=== PATIENT | female | born 1940 | race Caucasian/White ===

== ENCOUNTER 2019-07-20 22:56 | Emergency (ER) | payer MEDICARE, OTHER ==
[~2019-07-20] VITALS: Ht 160 cm; Wt 65.8 kg
[~2019-07-20 22:56] MED LIST: CLONAZEPAM1 MG PO; METHYCLOTHIAZIDE5 MG PO; POTASSIUM CHLO20 ME1 PO; ROPINIROLE HCL1 MG PO; SIMVASTATIN40 MG PO; SPIRONOLACTONE25 MG PO; TRANSDERM-SCOP1 EA TD
[2019-07-20] MEDS ORDERED: HYDROCHLOROTH12.5 MG PO (23:11)
--- NOTE | 2019-07-21 12:40 | EKG ---
[facility] [address] [place] [address] Signed Sinus tachycardia Possible Left atrial enlargement Borderline ECG No previous ECGs available Confirmed by JACQUELINE EGAN MD ([id number]) on 07/21/2019 12:39:46 PM Electronically Signed By: JACQUELINE EGAN MD 07/21/19 1240 PATIENT NAME: ALAN BRICEÑO ANN Electrocardiogram DATE OF : 42 PHYSICIAN: JACQUELINE EGAN MD REPORT #: [id number] REPORT IS CONFIDENTIAL AND NOT TO BE RELEASED WITHOUT AUTHORIZATION
== END 2019-07-21 01:02 | disposition home or self-care (01) ==
LOC: ED 22:56
DX: I10 Essential (primary) hypertension (principal); Z85.3 Personal history of malignant neoplasm of breast; Z87.891 Personal history of nicotine dependence; Z79.899 Other long term (current) drug therapy
CPT/HCPCS: 71045; 80053; 81001; 83735; 84484; 85025; 93005; 93010; 99284-25

== ENCOUNTER 2020-12-25 20:19 | Inpatient (IN) | payer MEDICARE, OTHER ==
[~2020-12-25] VITALS: Ht 160 cm; Wt 69.3 kg
[~2020-12-25 20:19] MED LIST changes: +HYDROCHLOROTH12.5 MG PO
--- OUTSIDE RECORDS SUMMARY | 2020-12-25 20:22 | XMS ---
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 [facility] has no Care Guidelines for this patient. Rhea VISIT COUNT (12 MO.) 1 TONY Faustin TOTAL 1 NOTE: Visits indicate total known visits. ED/C VISIT TRACKING (12 MO.) 12/25/2020 20:20 TONY Aguilar OR TYPE: Emergency COMPLAINT: - ABDOMINAL PAIN INPATIENT VISIT TRACKING (12 MO.) No inpatient visits to display in this time frame [email or web address]
--- NOTE | 2020-12-26 01:24 | NUR ---
TELEPHONE REPORT RECEIVED FROM ED RN STACEY, QUESTIONS ANSWERED. AWAITING pt'S ARRIVAL.
--- NOTE | 2020-12-26 01:47 | NUR ---
pt ARRIVED TO THE FLOOR VIA ED STRETCHER, AIRPLANE PILOT HELPER MANDY IN ROOM AND ASSISTING WITH pt TRANSFER.
--- NOTE | 2020-12-26 02:36 | NUR ---
ASSESSMENT COMPLETE, SCHEDULED MEDS GIVEN ALONG WITH PRN TYLENOL (SEE EMAR) FOR 4/10 PAIN R/T HEADACHE. IV FLUIDS AND ABX STARTED PER MD ORDERS, SITE WNL. pt REPORTS SOME PAIN, STATES, "SHE HAD TO WORK A LITTLE TO GET IT". SITE FLUSHES EASILY AND NO SIGNS OF INFILTRATION OR LEAKING NOTED, WILL MONITOR, ELEVATED WITH PILLOWS. REHABILITATION NURSE YAMILEX HELPING pt TO BATHROOM TO VOID. NO FURTHER NEEDS VERBALIZED.
--- NOTE | 2020-12-26 02:45 | NUR ---
IN TO ASST PT TO THE TOILET, SBA WITH IV POLE, PROVIDED PT WITH WARM BLANKETS, NO FURTHER NEEDS AT THIS TIME
--- NOTE | 2020-12-26 05:34 | NUR ---
pt RESTING IN BED, AWOKE TO VOICE. UP SBA WITH ACCOUNTING/FINANCE TUTOR YAMILEX TO VOID. VSS, IV FLUIDS AND ABX INFUSING PER MD ORDERS, SITE WNL. pt DENIES PAIN AT IV SITE, WILL MONITOR.
[2020-12-26] MEDS ORDERED: PRAMIPEXOLE DI0.5 MG PO (06:12)
--- NOTE | 2020-12-26 08:07 | NUR ---
CLEAR LIQUID TRAY IN TO PATIENT, PATIENT DENIES OTHER NEEDS AT THIS TIME.
--- NOTE | 2020-12-26 09:00 | NUR ---
Pt up to bathroom to void. SBA. Voided 200 mls concentrated yellow urine. C/O 4/10 abdominal pain and "minor" headache. PO tylenol given. Pt back to bed. PT requesting medication change, states she does not take requip for her restless leg syndrome at home, instead she take Mirapex. This RN let Dr. Downey know of pt's request for med change. IV potassium/LR infusing into RFA IV. No other needs at this time. Call light in reach.
--- NOTE | 2020-12-26 09:14 | NUR ---
PATIENT UP TO BR WITH RN. SON IN ROOM. VITALS AND I&OS CHARTED
--- NOTE | 2020-12-26 12:00 | NUR ---
PT SITTING UP IN CHAIR EATING LUNCH. TOLERATING CLEAR LIQUIDS WELL. DENIES PAIN OR NAUSEA. NO OTHER NEEDS. CALL LIGHT IN REACH.
--- NOTE | 2020-12-26 12:26 | NUR ---
PT RESTING, SOMEWHAT ALERT AND DROWSY. PT ADMITTED SHE FEELS ALITTLE GUILTY HAVING TO COME TO [facility]. SHE FELT SHE SHOULD JUST BE ABLE TO "TOUGH IT OUT". PT DID SAY THAT SHE HAS BEEN PRAYING ALOT AND FEELS MUCH CLOSER TO GOD. GAVE ENCOURAGEMENT, AND LEFT OK AND ZULEIKA. PT REQUESTED PRAYER. WILL FOLLOW
--- NOTE | 2020-12-26 12:40 | NUR ---
STANDBY ASSIST TO THE BATHROOM. TOLERATED WELL. VOIDED X1 AND SMALL BM. REPOSITIONED PT IN CHAIR. CALL LIGHT IN REACH. NO FURTHER NEEDS.
--- NOTE | 2020-12-26 13:46 | NUR ---
PTS RN REQUESTS THAT THIS RN ASSIST WITH MEDICATIN ADMINISTRATION. THIS RN TO ROOM. PT RESTING IN BED WATCHING TV. PT DENIES PAIN AND NAUSEA. MEDICATION GIVEN. PT DENIES ADDITIONAL REQUESTS OR COMPLAINTS. CALL LIGHT WIHTIN REACH. BED RAILS UP.
--- NOTE | 2020-12-26 14:24 | NUR ---
SBA WITH PATIENT TO BATHROOM. VITALS AND I&OS CHARTED. CALL LIGHT IN REACH, WARM PLANKET AND FRESH WATER PROVIDED. NO OTHER NEEDS AT THIS TIME
[2020-12-26] MEDS ORDERED: ULTRAM50 MG PO (14:32)
--- NOTE | 2020-12-26 16:24 | NUR ---
Pt lives with spouse in 1 story home. Son and daughter in law both work in the medical field. She states she is well cared for. Does not use any DME. Denies any financial issues. 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 Plans on dc to home when cleared medically. Denies any needs and plans on DC to home with help from family.
--- NOTE | 2020-12-26 16:31 | NUR ---
MED REC COMPLETE
--- NOTE | 2020-12-26 17:00 | NUR ---
PT HAS BEEN UP AD RHIANNA THROUGHOUT AFTERNOON AND UP IN CHAIR WELL. RESTING NOW IN BED, NEW BAG OF IV LR W/ 20 K AND ZOSYN INFUSING CONCURRENTLY INTO RIGHT WRIST IV. TOLERATING CLEAR LIQUID DIET WELL. GIVEN IV DILAUDID FOR ABD PAIN AND IV ZOFRAN FOR NAUSEA. PT NOW DENIES ANY PAIN OR NAUSEA. CALL LIGHT IN REACH.
--- NOTE | 2020-12-26 18:00 | NUR ---
PT REPOSITIONED TO LEFT SIDE W/ PILLOW UNDER COCCYX FOR COMFORT.
--- NOTE | 2020-12-26 18:08 | NUR ---
PATIENT AWAKE IN BED. VITALS AND I&OS CHARTED. CALL LIGHT IN REACH, NO OTHER NEEDS AT THIS TIME
--- NOTE | 2020-12-26 19:05 | NUR ---
SHIFT REPORT RECEIVED FROM DAYSHIFT VON ADAMS AT BEDSIDE. pt AWAKE AND RESTING IN BED. IV FLUIDS AND ABX INFUSING PER MD ORDERS, SITE WNL. NO NEEDS VERBALIZED, CALL LIGHT IN REACH AND BOARD UPDATED.
--- NOTE | 2020-12-26 21:53 | NUR ---
PM VITALS DONE, FRESH ICE WATER GIVEN, NO FURTHER NEEDS AT THIS TIME
--- NOTE | 2020-12-26 22:00 | NUR ---
ASSESSMENT COMPLETE, SCHEDULED MEDS RECENTLY GIVEN BY ROLLER TURNER MANDY (SEE EMAR). pt A/OX4, REPORTS TOLERABLE PAIN 4/10 TO BACK AND ABD. WISHES TO WAIT UNTIL 2300 SO SHE CAN HAVE BOTH PAIN AND NAUSEA MEDICATION. IV SITE WNL, FLUSHES EASILY. IV FLUIDS INFUSING PER MD ORDERS. pt REPORTS DISCOMFORT R/T BOWEL STIMULATOR TO RIGHT LOWER BACK, SITE ASSESSED. NO SIGNS OF SKIN BREAKDOWN OR DEFORMITY NOTED, pt ASSISTED WITH REPOSITIONING, PILLOW IN PLACE FOR COMFORT. NO FURTHER NEEDS, CALL LIGHT IN REACH.
--- NOTE | 2020-12-27 02:13 | NUR ---
2AM VITALS DONE, PT UP TO VOID, NO FURTHER NEEDS, RN MADE AWARE OF LOWER BP
--- NOTE | 2020-12-27 02:30 | NUR ---
ASSESSMENT COMPLETE, VSS. pt AWAKENS TO VOICE. A/OX4, DENIES PAIN AND NAUSEA AT THIS TIME. BT ACTIVE. NEW BAG IV FLUIDS HUNG ALONG WITH SCHEDULED IV ABX (SEE EMAR). pt DENIES FURTHER NEEDS, CALL LIGHT IN REACH.
--- NOTE | 2020-12-27 04:43 | NUR ---
CALL LIGHT ON. pt UP TO VOID, SBA. BACK TO BED. PROVIDED A WARM BLANKET. NO FURTHER REQUESTS AT THIS TIME. CALL LIGHT WITHIN REACH.
--- NOTE | 2020-12-27 05:30 | NUR ---
pt RESTING IN BED WITH EYES CLOSED, RR EVEN AND UNLABORED. NO DISTRESS NOTED, CALL LIGHT IN REACH.
--- NOTE | 2020-12-27 06:22 | NUR ---
VS AND I&O'S COMPLETE, pt UP SBA TO BATHROOM TO VOID X1 AND HAVE SMALL BM. pt BACK TO BED, SOMEWHAT UNSTEADY ON FEET. CALLS APPROPRIATELY. NO FURTHER NEEDS, CALL LIGHT IN REACH. LAB IN ROOM.
--- NOTE | 2020-12-27 08:30 | NUR ---
SBA UP TO RECLINER, IN GOOD SPIRITS THIS AM, REPORTS NORMAL BM THIS AM. DENIES NAUSEA, STATES SHE IS HUNGRY, DR CUTLER IN TO SEE PT AND WILL ADVANCE DIET. SCHEDULED MEDS GIVEN. LOOKING AT MENU.
--- NOTE | 2020-12-27 10:20 | NUR ---
ATE 50% OF [place]KIST[place] TOAST, DENIES NAUSEA, LAYING BACK ON BED FOR NAP, ASKED FOR DILAUDID FOR GENERAL DISCOMFORT IT HELPS HER REST BETTER. SCHEDULED HERMINION STARTED. CALL LIGHT IN EASY REACH.
--- NOTE | 2020-12-27 14:36 | NUR ---
PATIENT AMBULATE 2 LAPS AROUND THE NURSES STATION WITH CAMP DIRECTOR AT SIDE. FRESH WATER GIVEN. VITALS AND I&OS ARE DONE AND DOCUMENTED. CALL LIGHT IS IN REACH. NO FURTHER NEEDS AT THIS TIME.
--- NOTE | 2020-12-27 17:00 | NUR ---
MEDICATED WITH OXYCODONE FOR C/O BACK AND ABD PAIN AFTER GETTING UP TO VOID, RESTING ON BED TALKING WITH DAUGHTER.
--- NOTE | 2020-12-27 17:30 | NUR ---
MEDICATED WITH SECOND OXYCODONE PT STATES ONE TABLET HAS NOT RELIEVED PAIN MUCH.
--- NOTE | 2020-12-27 17:45 | NUR ---
PATIENT RESTING IN BED, DAUGHTER IN ROOM. VITALS AND I&OS CHARTED. HOT PACK PROVIDED FOR NECK. CALL LIGHT IN REACH, NO OTHER NEEDS AT THIS TIME
--- NOTE | 2020-12-27 19:10 | NUR ---
SHIFT REPORT RECEIVED FROM DAYSHIFT VON SIMMONS AT BEDSIDE, pt AWAKE AND RESTING IN BED. IV ABX AND FLUIDS INFUSING PER MD ORDERS, SITE WNL. NO ADDITIONAL NEEDS VERBALIZED AT THIS TIME, CALL LIGHT IN REACH.
--- NOTE | 2020-12-27 20:32 | NUR ---
VS AND I &O COMPLETED. PRIMARY RN USHA IN ROOM.
--- NOTE | 2020-12-27 20:54 | NUR ---
ASSESSMENT COMPLETE, SCHEDULED MEDS GIVEN (SEE EMAR). pt A/OX4, VSS. pt REPORTS TOLERABLE 2-3/10 UPPER ABD PAIN. DECLINES NEED FOR PAIN MEDICATION, INSTRUCTED TO CALL MANAGER SHELL IF PAIN WORSENS. pt VERBALIZED UNDERSTANDING. DENIES NAUSEA, TOLERATING DIET. BOWEL TONES ACTIVE. NO FURTHER NEEDS, CALL LIGHT IN REACH.
--- NOTE | 2020-12-27 21:36 | NUR ---
PT CALLS TO USE BR. SBA TO BR AND BACK TO BED. PUDDING AND CRACKERS PROVIDED. NO OTHER NEEDS AT THIS TIME. CALL LIGHT IN REACH.
--- NOTE | 2020-12-27 22:23 | NUR ---
pt ROUNDING, pt RESTING IN BED WITH EYES CLOSED. RR EVEN AND UNLABORED. NO DISTRESS NOTED. CALL LIGHT IN REACH.
--- NOTE | 2020-12-27 23:31 | NUR ---
CALL LIGHT ANSWERED, pt UP SBA TO BATHROOM TO VOID AND BACK TO BED. pt TOLERATED WELL, STEADY ON FEET. USED IV POLE FOR ADDITIONAL BALANCE. WHEN ASKED ABOUT PAIN, pt STATES SHE FEELS "FINE". DENIES NEED FOR PAIN MEDICATION. CALL LIGHT IN REACH.
--- NOTE | 2020-12-28 00:42 | NUR ---
PT UP TO BR, SBA, BACK TO BED. PT SYSYES SHE HAS 6/10 BOYCE PAIN. PRIMARY RN USHA NOTIFIED.
--- NOTE | 2020-12-28 01:05 | NUR ---
pt REPORTING 5/10 DULL PAIN R/T HEADACHE. PRN TYLENOL GIVEN (SEE EMAR). pt DECLINES WARM/COOL RAG, TURNING OFF TV, STATES "IT HELPS ME SLEEP". DECLINES ADDITIONAL NEEDS, CALL LIGHT IN REACH.
--- NOTE | 2020-12-28 02:00 | NUR ---
IN ROOM TO ADMINISTER SCHEDULED IV ABX, SITE WNL. pt RESTING IN BED WITH EYES CLOSED. CALL LIGHT IN REACH.
--- NOTE | 2020-12-28 02:30 | NUR ---
IN TO ANSWER CALL LIGHT, pt UP SBA TO BATHROOM TO VOID. STEADY ON FEET WITH USE OF IV POLE. 75MLS OUT, pt BACK IN BED. ASSESSMENT COMPLETE. NO NEW CHANGES OR CONCERNS. CALL LIGHT IN REACH.
--- NOTE | 2020-12-28 04:44 | NUR ---
ROUNDING ON pt, pt RESTING IN CHAIR, EYES CLOSED. RR EVEN AND UNLABORED. IV FLUIDS AND IV ABX INFUSING PER MD ORDERS. CALL LIGHT IN REACH.
--- NOTE | 2020-12-28 05:20 | NUR ---
VS AND I&O COMPLETED. SNACK PROVIDED. NO OTHER NEEDS AT THIS TIME.
--- NOTE | 2020-12-28 05:21 | NUR ---
VS AND I&O'S COMPLETE, IV FLUIDS AND ABX INFUSING PER MD ORDERS, SITE WNL. SNACK PROVIDED, NO FURTHER NEEDS. CALL LIGHT IN REACH.
--- NOTE | 2020-12-28 05:43 | NUR ---
PT UP TO BR AND BACK TO BED, SBA. NO OTHER NEEDS AT THIS TIME. CALL LIGHT IN REACH.
--- NOTE | 2020-12-28 06:47 | NUR ---
PT UP TO BR AND BACK TO BED. NO OTHER NEEDS AT THIS TIME. CALL LIGHT IN REACH.
--- NOTE | 2020-12-28 07:20 | NUR ---
CALL PLACE TO DR EGAN, PT IS UP TO BATHROOM C/O INCREASED ABD CRAMPING AND DIARRHEA THIS AM. STATES SHE HAS BEEN UNABLE TO REST AND IS QUITE ANXIOUS THIS AM. RECIEVED ORDERS TO RETURN TO CLEAR LIQUIDS, MORPHINE FOR PAIN, AND TRAMADOL, SHE TAKES THIS AT HOME.
--- NOTE | 2020-12-28 08:02 | NUR ---
PT REPORTS CRAMPING HAS STOPPED AFTER RECIEVING MORPHINE, RESTING ON BED AND DENIES FURTHER NEEDS, STATES SHE JUST WANTS TO REST A BIT. CALL LIGHT IN EASY REACH.
--- NOTE | 2020-12-28 09:38 | NUR ---
PATIENT IS SITTING UP IN HER CHAIR. AM CARE IS DONE. VITALS AND I&OS ARE DONE AND DOCUMENTED. FRESH WATER GIVEN. CALL LIGHT IS IN REACH. NO FURTHER NEEDS AT THIS TIME.
--- NOTE | 2020-12-28 10:33 | NUR ---
DR EGAN IN TO SEE PT. DISCUSSES DX AND PLAN GOING FORWARD ALL QUESTIONS ANSWERED.
--- NOTE | 2020-12-28 13:43 | NUR ---
PATIENT SBA TO BATHROOM. PT WATCHING TV WITH IN ROOM. CALL LIGHT WITHIN REACH, NO FURTHER NEEDS AT THIS TIME.
--- NOTE | 2020-12-28 14:56 | NUR ---
PT RESTING IN BED, REFUSES UP TO THE CHAIR STATING SHE IS MORE COMFORTABLE IN BED. TOLERATING CLEAR LIQUIDS NO C/O NAUSEA, AGREES SHE IS COMFORTABLE AT THIS TIME
--- NOTE | 2020-12-28 17:34 | NUR ---
PT STATES SHE FEELS WORSE OVERALL THAN BETTER. SHE HAS COMPLETED HER CLEAR LIQUID TRAY NO C/O NAUSEA OR PAIN. UP TO TOILET STEADY ON HER FEET. DENIES FURTHER NEEDS AT THIS TIME
--- NOTE | 2020-12-28 18:15 | NUR ---
PATIENT IS SITTING UP IN BED WATCHING TV. PATIENT IS FACETIMING FAMILY. VITALS AND I&OS ARE DONE AND DOCUMENTED. CALL LIGHT IS IN REACH. NO FURTHER NEEDS AT THIS TIME.
--- NOTE | 2020-12-28 19:10 | NUR ---
SHIFT REPORT RECEIVED FROM JOSEPH BAE AT BEDSIDE. pt AWAKE ANDRESTING IN BED, DENIES NEEDS. IV FLUIDS INFUSING, SITE WNL. CALL LIGHT IN REACH. BOARD UPDATED.
--- NOTE | 2020-12-28 20:15 | NUR ---
CALL LIGHT ON. pt UP TO VOID, CARLOS, REQUIRED 1PA. SMALL BM NOTED. pt BACK TO BED, MORE STEADY ON FEET. pt STATED "I'M SURE I HAVE A FEVER, I'M SO COLD." TEMP TAKEN 99.0. PROVIDED WARM BLANKETS. FUR DRY CLEANER IN ROOM.
--- NOTE | 2020-12-28 20:24 | NUR ---
CALL FROM SON, SERJIO. REPORTED THAT pt SMOKES AND DRINKS CAFFEINE. UPDATED ON pt CONDITION. SERJIO CONCERNED THAT pt MAY BE EXPERIENCING WITHDRAWAL FROM NICOTINE OR CAFFEINE. PRIMARY RN UPDATED.
--- NOTE | 2020-12-28 20:59 | NUR ---
ASSESSMENT COMPLETE, pt RECENTLY UP TO VOID WITH BOAT CLEANER MANDY. pt REPORTS FEELING COLD, TEMP 99.0, WARM BLANKETS ALREADY IN PLACE. EDUCATED pt ON DEEP BREATHING AND USE OF IS, pt VERBALIZED UNDERSTANDING. pt DROWSY, STARTLES EASILY AND FALLS ASLEEP QUICKLY. AWAKENS TO VOICE, VSS. pt APPEARS SOMEWHAT RESTLESS, DISCUSSED POSSIBLE SOURCES OF ANXIETY. ASKED ABOUT HX REGARDING SMOKING OR CAFFEINE USE. pt DENIED SMOKING, REPORTS DRINKING A CUP OF COFFEE IN THE MORNING. REPORTS GENERALIZED 5/10 PAIN, PO PRN MORPHINE GIVEN (SEE EMAR). PRN ZOFRAN ALSO GIVEN PER pt REQUEST, pt ADAMANT SHE IS ABLE TO KEEP PO PILLS DOWN. pt UP SBA TO VOID, 250MLS STRAW COLORED URINE NOTED. pt BACK IN BED. NO FURTHER NEEDS, CALL LIGHT IN REACH.
--- NOTE | 2020-12-28 22:34 | NUR ---
ROUNDING ON pt, pt RESTING IN BED, EYES CLOSED. RR EVEN AND UNLABORED, NO DISTRESS OR SIGNS OF PAIN/ANXIETY NOTED. pt APPEARS RELAXED AT THIS TIME, CALL LIGHT IN REACH.
--- NOTE | 2020-12-28 23:37 | NUR ---
pt RESTING IN BED WITH EYES CLOSED, RR EVEN AND UNLABORED, RR 20. NO DISTRESS NOTED, pt APPEARS RELAXED AND COMFORTABLE. CALL LIGHT IN REACH.
--- NOTE | 2020-12-29 00:53 | NUR ---
ROUNDING ON pt, pt FOUND SITTING AT EDGE OF BED AWAKE. ASSISTED TO BATHROOM, INCONTINENT OF SMALL SOFT BM, JOHNATHON CARE DONE. NEW ATTENDS IN PLACE. UNMEASURED VOID X1 ALSO NOTED. pt BACK TO BED, STEADY ON FEET. SPOT CHECKED, SUSTAINING UPPER 80'S ON RA, PLACED ON 1.5LNC, NOW SUSTAINING AT 94%. WILL CONTINUE TO MONITOR. IV FLUIDS INFUSING PER MD ORDERS, IV SITE WNL. NO FURTHER NEEDS, CALL LIGHT IN REACH. BED ALARM ON TO ENSURE SAFETY.
--- NOTE | 2020-12-29 03:15 | NUR ---
BED ALARMING. pt GETTING UP WHEN THIS RN ENTERED ROOM. 1PA TO TOILET. pt INCONT OF STOOL. DEPENDS CHANGED. PRIMARY RN TO ROOM.
--- NOTE | 2020-12-29 03:30 | NUR ---
ASSISTED pt BACK TO BED, SBA/1PA, STEADY ON FEET. WHEN ASKED FOR MONTH, pt REPORTED IT WAS . REMAINING ORIENTATION QUESTIONS CORRECT. pt EDUCATED TO USE CALL LIGHT BEFORE BETTING OOB, pt VERBALIZED UNDERSTANDING. REMAINING ASSESSMENT UNCHANGED, pt DENIES PAIN AND NAUSEA. NO FURTHER NEEDS, CALL LIGHT IN REACH. 1.5LNC REMAINS IN PLACE, O2 SATS SUSTAINING IN LOW TO MID 90'S. IV SITE WNL. WHEN ASKED AGAIN ORIENTATION, pt REPORTED CORRECT MONTH AND STATED THE DAY WAS "TUESDAY/TUESDAY".
--- NOTE | 2020-12-29 05:53 | NUR ---
ASSISTED pt BACK FROM BATHROOM TO BED, STEADY ON FEET. CLEAN ATTENDS IN PLACE. VS AND I&O'S STABLE. IV SITE WNL, FLUIDS INFUSING PER MD ORDERS. BED ALARM ON FOR SAFETY. NO FURTHER NEEDS, CALL LIGHT IN REACH.
--- NOTE | 2020-12-29 08:50 | NUR ---
Spoke with Christina Ramos. States she is feeling better, but has continues pain and had a rough night last night. Complains of headache as she does not like the hospital coffee. She complains tea is cold when it arrives. Made her a hot cup of tea with 2 tea bags and she used her own honey. Wants to go home with spouse when cleared medically. Discussed she is back on clear liquids.
--- NOTE | 2020-12-29 09:30 | NUR ---
REPORT RECEIVED FROM NIGHT RN AND PT. CARE RESUMED. PT. ALERT AND ORIENTED AND DENIES PAIN. PT. STATED SHE HAD A ROUGH NIGHT AND WAS CONFUSED AT ONE POINT. SHE ALSO STATED SHE THOUGHT IT WAS DUE TO THE MORPHINE AND SHE HAS NEVER HAD IT BEFORE. LUNGS CLEAR AND BOWEL TONES ACTIVE. PT. DENIES ABDOMINAL TENDERNESS. SKIN INTACT. PT. REPORTS IV SITE IS BOTHERING HER DUE TO LOCATION BUT NOT PAINFUL. IV SITE FLUSHES WELL AND WNL. PT. ATE A FEW BITES OF JELLO, BUT STATES SHE DOES NOT CARE FOR THE FOOD AND HER DAUGHTER WILL BRING CHICKEN BROTH FROM HOME. MORNING MEDS GIVEN AND PT. LEFT RESTING IN BED WITH CALL LIGHT IN REACH.
--- NOTE | 2020-12-29 10:50 | NUR ---
PT. REPORTS 7/10 PAIN FROM HEADACHE AND REQUESTS TYLENOL. PO TYLENOL ADMIN. PT. DENIES FURTHER NEED AND PRISM MEASURER IN THE ROOM TO VISIT.
--- NOTE | 2020-12-29 14:29 | NUR ---
PT SLEEPING, SON SERJIO REQUESTED I COME ANOTHER TIME. WILL FOLLOW
--- NOTE | 2020-12-29 15:45 | NUR ---
PATIENT TOOK A SHOWER TODAY. SHE DIDN'T WANT TO WASH HER HAIR. NEW GOWN AND SOCKS. PATIENT IS SLEEPING.
--- NOTE | 2020-12-29 19:50 | NUR ---
REPORT RECEIVED FROM DAYSCTFT RN. PT LAYING IN BED AWAKE AND ALERT AND HAS NO COMPLAINTS OF PAIN. PT REPORTS NO FURTHER NEEDS AT THIS TIME ASIDE FROM ICE WHICH WAS PROVIDED. WILL CONTINUE PLAN OF CARE. CALL LIGHT IN REACH, BED IN LOWEST POSITION.
--- NOTE | 2020-12-29 20:37 | NUR ---
THIS RN IN TO ASSESS PT AND ADMINISTER SCHEDULED MEDICATIONS. PT AWAKE AND ALERT LAYING IN BED AND WATCHING TV. PT REPORTS NO PAIN AT THIS TIME WHEN ASKED. SCHEDULED MEDICATIONS ADMINISTERED, ASSESSMENT COMPLETE. BOWEL TONES ACTIVE, ABDOMEN SOFT, VS STABLE, PT AFEBRILE. PT REPORTS NO FURTHER NEEDS AT THIS TIME WHEN ASKED, WILL CONTINUE PLAN OF CARE. CALL LIGHT IN REACH, BED IN LOWEST POSITION.
--- NOTE | 2020-12-29 21:43 | NUR ---
CALL LIGHT ANSWERED. pt REQUESTING MIRAPEX, STATES "I USUALLY TAKE THE THIRD PILL, I ONLY GOT TWO. MY LEGS ARE GETTING A DULL ACHE AND I DON'T WANT THE MORPHINE". MIRAPEX TITRATED TO MAX DOSE, VERIFIED WITH PUDDLER PILE DRIVING. CALL LIGHT IN REACH. WARM BLANKETS PROVIDED.
--- NOTE | 2020-12-30 01:20 | NUR ---
PT SLEEPING AT THIS TIME. RESPIRATIONS NOTED AND ARE EVEN AND UNLABORED . PT IN NO APPARENT DISTRESS AT THIS TIME AND WAS LEFT UNDISTURBED, WILL CONTINUE PLAN OF CARE.
--- NOTE | 2020-12-30 04:28 | NUR ---
RESPONDED TO PT CALL LIGHT. PT AWAKE AND ALERT AND STATES THAT SHE IS HAVING NAUSEA AND REQUESTED MEDICATION. PT GOT UP DURING THIS TIME FROM HER BED AND SAT IN THE BEDSIDE CHAIR. PRN ZOFRAN ADMINISTERED TO PT. PT ALSO STATED SHE WAS HAVING A HEADACHE AND A NECK ACHE, PRN TYLENOL ADMINISTERED FOR 5/10 PAIN. ASSESSMENT COMPLETE AT THIS TIME. PT BOWEL TONES ACTIVE, PT STATES SHE HAS NOT HAD ANY BM'S OVERNIGHT. VS DONE AT THIS TIME WELL. PT REPORTS NO FURTHER NEEDS AT THIS TIME AND IS SITTING AT THE BEDSIDE CHAIR WATCHING TV. PT STATES SHE WILL TRY TO GO BACK TO SLEEP IN THE CHAIR. CALL LIGHT IN REACH, WILL CONTINUE PLAN OF CARE.
--- NOTE | 2020-12-30 04:54 | NUR ---
PT SLEPT THROUGH MOST OF THE NIGHT. PRN TYLENOL AND ZOFRAN GIVEN AROUND 0400 FOR NAUSEA, HEADACHE, AND NECK PAIN. PT HAS BEEN VOIDING QS AND HAS NOT HAD A BM OVERNIGHT. BOWEL TONES ACTIVE NO REPORTS OF ABDOMINAL PAIN, NO PRN MORPHINE NEEDED OVERNIGHT. PT IS ALERT AND ORIENTED, SALINE LOCKED, AND USES CALL LIGHT APPROPRIATELY.
--- NOTE | 2020-12-30 06:33 | NUR ---
THIS RN IN TO CHECK ON PT. PT LAYING IN BED WATCHING TV AWAKE AND ALERT. PT DENIES HAVING ANY PAIN AT THIS TIME AND REPORTS NO NAUSEA. PT REPORTS NO FURTHER NEEDS AT THIS TIME ASIDE FROM A SNACK WHICH WAS PROVIDED. CALL LIGHT IN REACH, BED IN LOWEST POSITION, WILL CONTINUE PLAN OF CARE.
--- NOTE | 2020-12-30 07:10 | NUR ---
SHIFT REPORT RECEIVED. PATIENT RESTING IN BED. DENIES ANY NEEDS OR CONCERNS. APPEARS TO BE IN GOOD SPIRITS.
--- NOTE | 2020-12-30 08:00 | NUR ---
PATIENT UP IN THE CHIAR DOING HER MAKE UP. PATIENT DENIES PAIN AND REPORTS NAUSEA FROM EARLIER IS RESOLVED. MORNING MEDS PROVIDED BY [facility] STUDENT STACEY. EDUCATION AND SIDE EFFECTS DISCUSSED. PATIENT'S IV SITE IS PAINFUL AND DOES NOT FLUSH WELL. SITE RED. IV REMOVED BY STUDENT AND MONITORED BY THIS RN. NORBERTO WNL. PATIENT HAD BREAKFAST WITH FULL LIQUID DIET AND IS REQUESTING ADVANCE IN DIET. ASSURED HER WE WOULD DISCUSS IT WITH MD. PATIENT DENIES OTHER NEEDS. CALL LIGHT IN REACH. PATIENT ALSO REPORTS A LOOSE STOOL. STOOL OBSERVED AT [facility] AND LIQUID.
--- NOTE | 2020-12-30 09:00 | NUR ---
PATIENT UP WALKING IN THE HALLWAY. APPEARS STEADY. DENIES ANY NEEDS.
--- NOTE | 2020-12-30 09:38 | NUR ---
PATIENT IS SITTING UP IN HER CHAIR. FRESH WATER GIVEN. CALL LIGHT IS IN REACH. NO FURTHER NEEDS AT THIS TIME.
--- NOTE | 2020-12-30 10:00 | NUR ---
PATIENT RESTING IN BED. DENIES ANY NEEDS.
[2020-12-30] MEDS ORDERED: VANCOMYCIN HCL125 MG PO (11:38)
[2020-12-30] MEDS ORDERED: AMOX TR-K CLV1 EAC1 PO (11:38)
[2020-12-30] MEDS ORDERED: PROBIOTIC1 EAC3 PO (11:42)
--- NOTE | 2020-12-30 12:24 | NUR ---
PATIENT VERBALIZED UNDERSTANDING OF DC INSTRUCTIONS. PATIENT GETTING DRESSED INDEPENDENTLY. VS STABLE. IV SITE PREVIOUSLY REMOVED THIS MORNING. PATIENT DENIES ANY FURTHER NEEDS. DAUGHTER IS ON HER WAY TO PROVIDED A RIDE HOME.
--- NOTE | 2020-12-30 13:45 | NUR ---
Spoke with Christina Ramos. She is dressing and spouse is packing belongings out. Pt plans on dc to home with spouse, denies needs. She had requested I change her Dr. but explained she has pcp and will need to first follow up with pcp. If she wishes to change Dr. after, she will need to call the office. She states she is uncomfortable doing so. Explained if she was without a pcp, I could schedule her, but she needs to do this on her own.
--- NOTE | 2020-12-30 14:02 | NUR ---
PT ALERT, ORIENTED AND VISITING WITH HER SPOUSE FELIPE AT . HAD DISCUSSION WITH PT ABOUT THE NEED FOR A PCP. MENTIONED SHE HAS HAD DIFFICULTY FINDING ONE. ENCOURAGED HER TO CHECK [facility] AND GAVE OTHER SUGGESTIONS. PT AND SPOUSE ACKNOWLEDGED. GAVE BLESSING, WILL FOLLOW NEEDED
== END 2020-12-30 12:38 | disposition home or self-care (01) | DRG 392 ==
LOC: ED 20:19 → MS 20:21 → ED 20:21 → MS 12-28 12:04
PROVIDERS: ADMIT Internal Medicine; ATTEND Internal Medicine
DX: K57.32 Diverticulitis of large intestine without perforation or abscess without bleeding (principal); Z20.822 Contact with and (suspected) exposure to COVID-19; G25.81 Restless legs syndrome; E87.6 Hypokalemia; I10 Essential (primary) hypertension; E78.5 Hyperlipidemia, unspecified; Z79.899 Other long term (current) drug therapy; Z88.5 Allergy status to narcotic agent; Z85.3 Personal history of malignant neoplasm of breast
CPT/HCPCS: 36415; 74177; 80048; 80053; 81001; 83690; 83735; 85025; 87088; 99285-25; C9113; C9803; J1170; J1650; J2270; J2405; J2543; J3480; J7120; Q9967; U0003

== ENCOUNTER 2021-02-25 16:06 | Emergency (ER) | payer MEDICARE, OTHER ==
[~2021-02-25] VITALS: Ht 157.5 cm; Wt 68.0 kg
[~2021-02-25 16:06] MED LIST changes: +AMOX TR-K CLV1 EAC1 PO; +PRAMIPEXOLE DI0.5 MG PO; +PROBIOTIC1 EAC3 PO; +ULTRAM50 MG PO; +VANCOMYCIN HCL125 MG PO
--- OUTSIDE RECORDS SUMMARY | 2021-02-25 16:08 | XMS ---
PreManage Notification: ALAN BRICEÑO [employer]ward Events No recent Security Events currently on file CRITERIA MET - [facility] There are no care providers on record at this time. [facility] has no Care Guidelines for this patient. Rhea VISIT COUNT (12 MO.) 2 TONY Faustin TOTAL 2 NOTE: Visits indicate total known visits. ED/UCC VISIT TRACKING (12 MO.) 02/25/2021 16:07 [facility] TYPE: Emergency COMPLAINT: - ABD PAIN, ABNORMAL BOWEL MOVEMENTS 12/25/2020 20:20 [facility] TYPE: Emergency COMPLAINT: - DIVERTICULITIS INPATIENT VISIT TRACKING (12 MO.) 12/28/2020 12:04 [facility] TYPE: Medical Surgical COMPLAINT: - DIVERTICULITIS DIAGNOSES: - Diverticulitis of large intestine without perforation or abscess without bleeding - Personal history of malignant neoplasm of breast - Allergy status to narcotic agent - Other roasterman (current) drug therapy - Hypokalemia - Restless legs syndrome - Hyperlipidemia, unspecified - Essential (primary) hypertension [email or web address]
[2021-02-25] MEDS ORDERED: DICYCLOMINE HCL10 MG PO (16:51)
[2021-02-25] MEDS ORDERED: POTASSIUM CHLO10 ME2 PO (16:52)
[2021-02-25] MEDS ORDERED: ONDANSETRON ODT8 MG PO (20:53)
--- NOTE | 2021-03-01 12:21 | CONS ---
[facility] [address], [place] [address] Signed DATE OF CONSULTATION: 02/25/2021 REQUESTING PHYSICIAN: Dr. Marin. PROBLEM: Left lower abdominal pain, history of diverticulitis and recurrent refractory C difficile. HISTORY: The patient has a very complex past medical history regarding her colon, rectum and elsewhere. She presents this evening with left lower abdominal pain with a known history of diverticulitis as far back as December 26, 2020. She had been treated since the end of October with Cipro and Flagyl antibiotic and developed C difficile colitis infection. The patient has a distant history of an implanted rectal electronic stimulator to assist in incontinence related to anorectal incontinence despite having had sphincteroplasty in the distant past. This was implanted in about 2007 in [place], [place] by . The patient has been seen by Dr. 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 A CT scan had been performed in the emergency room showing some colonic wall thickening which was considered possible diverticulitis. No colonic abscess or fluid collection. She was admitted by Dr. Downey and monitored at that time. In the meantime, the patient has had recurrent C difficile; she was evaluated in [place] at the [facility] where she was found not to have diarrhea and only in a tangential way ultimately tested for C difficile, which was said to be positive. It is unclear if this was C difficile toxin or antigen alone. In any case, she was treated with oral vancomycin, which seemed to help her symptoms, but then she has had symptoms which she thinks may indicate recurrent C difficile infection or possibly recurrent diverticulitis. Of note, I have seen the patient in the past in treatment for left-sided breast cancer, which was treated by lumpectomy with subsequent complication of infection or an infected seroma which was drained in January of 2012. There is question as to whether it was really a surgical wound infection and that her operation was originally on December 07, and re-excision of the biopsy site performed on January 30 with subsequent infection. In any case, that problem is resolving. There has been no recurrent problem regarding the breast. As regards to her current symptoms, she has had left lower abdominal pain, but it has not been severe. She has not had diarrhea nor has she had blood per rectum, though she has had some mucoid discharge. She is unaware if biopsies performed at [place] specifically thought lymphocytic colitis, but a biopsy was taken of the area of Electronically Signed By: KRISH BURKETT MD 03/01/21 1221 PATIENT NAME: ALAN BRICEÑO CONSULTATION DATE OF : 42 REPORT #: [id number] PHYSICIAN: KRISH BURKETT MD PCP: KELSEY MCKOY MD REPORT IS CONFIDENTIAL AND NOT TO BE RELEASED WITHOUT AUTHORIZATION [address] [address] Signed thickening in the left colon she says. Review of her notes from December did describe acute sigmoid diverticulitis with prompt improvement with antibiotic therapy. Other medical issues include essential hypertension, hyperlipidemia, and restless legs syndrome. SURGICAL HISTORY: Includes breast surgery on the left as previously noted as well as abdominoplasty. ALLERGIES: The patient has allergies to codeine. REVIEW OF SYSTEMS: She denies any shortness of breath or chest pain. She has no cough and no fever. Notably, she had COVID vaccination x2 in this institution many months ago. SOCIAL HISTORY: She is accompanied by her son this evening Jae Jaimes who is a respiratory therapist. PHYSICAL EXAMINATION: GENERAL: This is a pleasant white woman, who looks to be nontoxic in every way. VITAL SIGNS: Her temperature reported is 97.4, pulse is 57, respirations 16, blood pressure 129/74. NECK: Shows no thyromegaly or cervical adenopathy. Trachea is midline. CHEST: Clear. HEART: Regular. ABDOMEN: Nondistended. There is a circumumbilical incision consistent with abdominoplasty from the past. The abdomen is nondistended. Palpation throughout shows no sign of mass or ascites. She has only minimal tenderness to the left lower quadrant, hardly any at all. In the small of her back on the right side is an implanted device consistent with electronic stimulator for sphincter augmentation. EXTREMITIES: Lower extremities show no clubbing, cyanosis, or edema. LABORATORY STUDIES: Show a white count of 6.2, hematocrit of 38.1, platelets 227,000. Chem profile showed normal electrolytes. Creatinine is 0.65. Liver enzymes are normal. Lipase normal at 41. Urinalysis is entirely normal. Rapid COVID test was obtained and result is pending. I have reviewed the CT scan that she had today. There does appear to be some mild thickening in the region of the sigmoid, but no pericolonic fat stranding or anything to strongly suggest diverticulitis in fact. The report as noted by Dr. Ady Stewart Electronically Signed By: KRISH BURKETT MD 03/01/21 1221 PATIENT NAME: ALAN BRICEÑO CONSULTATION DATE OF : 42 REPORT #: [id number] PHYSICIAN: KRISH BURKETT MD PCP: KELSEY MCKOY MD REPORT IS CONFIDENTIAL AND NOT TO BE RELEASED WITHOUT AUTHORIZATION [facility] [address], [place] [address] Signed shows an unchanged CT scan from that obtained in December. A CT scan that had been performed at the [facility] on 01/23/2021 was not available for comparison. There were numerous diverticula of the sigmoid and descending colon. Edematous wall thickening of the sigmoid is noted and remains present as before. There is no extraluminal gas, pericolic fluid collection or abscess. Appendix was normal. ASSESSMENT: The patient presented to the emergency room with an aura of impending recurrence of either diverticulitis or C difficile colitis. She is nontoxic and certainly has no peritonitis. I think it is more likely that she has a smoldering recurrent infection with C difficile than persistent diverticulitis at this point. I think she would benefit from pulsed therapy for C difficile. She seemed to respond to antibiotic therapy as administered but recurs quite soon thereafter. Fecal transplantation is not locally available at this time, although effective in those patients with recurrent refractory C difficile colitis, pulsed antibiotic therapy approach may be more practical at this time. I think she can be followed up as an outpatient rather than admitted to the hospital. If things should worsen in the course, we would change that approach. From what I can gather, she was placed on both Augmentin and vancomycin orally, Augmentin for presumed diverticulitis and vancomycin to diminish chances of C difficile recurrence. I do not think she needs antibiotic therapy for her sigmoid diverticulitis at this time. We discussed all this in detail. I will follow up with her in the office setting. The patient inquires regarding the possibility of sigmoid resection for which she perceives as recurrent diverticulitis from the past. It is certainly an option and a consideration, however, one would hesitate to proceed with a sigmoid resection without complete control of the C difficile problem to begin with. MD JAMI Fields/MONICA /[id number] cc: MD Josef Ivy MD Electronically Signed By: KRISH BURKETT MD 03/01/21 122 PATIENT NAME: ALAN BRICEÑO CONSULTATION DATE OF : 42 REPORT #: [id number] PHYSICIAN: KRISH BURKETT MD PCP: KELSEY MCKOY MD REPORT IS CONFIDENTIAL AND NOT TO BE RELEASED WITHOUT AUTHORIZATION [facility] [address], [place] [address] Signed Teena Xiao PA-C Copies: ADY DOWNEY MD, WILLIAM S MD ~ Electronically Signed By: KRISH BURKETT MD 03/01/21 122 PATIENT NAME: ALAN BRICEÑO ANN CONSULTATION DATE OF : 42 REPORT #: [id number] PHYSICIAN: KRISH BURKETT MD PCP: KELSEY MCKOY MD REPORT IS CONFIDENTIAL AND NOT TO BE RELEASED WITHOUT AUTHORIZATION
== END 2021-02-25 21:35 | disposition home or self-care (01) ==
LOC: ED 16:06
DX: A04.72 Enterocolitis due to Clostridium difficile, not specified as recurrent (principal); Z20.822 Contact with and (suspected) exposure to COVID-19; I10 Essential (primary) hypertension; E78.00 Pure hypercholesterolemia, unspecified; Z85.3 Personal history of malignant neoplasm of breast; Z88.5 Allergy status to narcotic agent; Z79.899 Other long term (current) drug therapy
CPT/HCPCS: 74177; 80053; 81001; 83690; 85025; 96374; 96375; 99284-25; C9803; J1170; J2405; J7030; Q9967; U0003

== ENCOUNTER 2021-05-24 09:00 | Emergency (ER) | payer MEDICARE, OTHER ==
[~2021-05-24] VITALS: Ht 157.5 cm; Wt 71.2 kg
[~2021-05-24 09:00] MED LIST changes: +DICYCLOMINE HCL10 MG PO; +ONDANSETRON ODT8 MG PO; +POTASSIUM CHLO10 ME2 PO
[2021-05-24] MEDS ORDERED: AUGMENTIN 875-1 EACH PO (12:46)
== END 2021-05-24 12:55 | disposition home or self-care (01) ==
LOC: ED 09:00
DX: K57.32 Diverticulitis of large intestine without perforation or abscess without bleeding (principal); Z85.3 Personal history of malignant neoplasm of breast; I10 Essential (primary) hypertension; E78.00 Pure hypercholesterolemia, unspecified; Z88.5 Allergy status to narcotic agent; Z79.899 Other long term (current) drug therapy
CPT/HCPCS: 74177; 80053; 85025; 99284-25; J1170; Q9967

== ENCOUNTER 2023-05-04 13:25 | Inpatient (IN) | payer MEDICARE, OTHER ==
[~2023-05-04] VITALS: Ht 157.5 cm; Wt 69.5 kg
--- OUTSIDE RECORDS SUMMARY | ~2023-05-04 | XMS | Continuity of Care Document ---
Demographics + + + | Address | [address] | | | [place] [address] | + + + | Preferred Language | Unknown | + + + | Marital Status | | + + + | Protestant Affiliation | Unknown | + + + | Race | White | + + + | Ethnic Group | Not or | + + + Author + + + | Author | [facility] | + + + | Organization | [facility] | + + + | Address | [address] | | | [place] [address] | + + + | Phone | | + + + Care Team Providers + + + + | Care Ship Wirer Name | Role | Phone | + + + + Unavailable | Unavailable | + + + + Unavailable | Unavailable | + + + + Unavailable | Unavailable | + + + + Allergies and Intolerances + + + + + | date | description | facility | type | + + + + + | (no date) | Codeine | [facility] | (unknown) | [facility] | | + + + + + | (no date) | codeine | [facility] | (unknown) | | | | Hospital | | + + + + + | (no date) | Morphine | [facility] | (unknown) | | | | Hospital | | + + + + + | (no date) | Codeine | [facility] | (unknown) | | | | Hospital | | + + + + + | (no date) | Psychosis | [facility] | (unknown) | | | | Hospital | | + + + + + | (no date) | Morphine | [facility] | (unknown) | | | | Hospital | | + + + + + | (no date) | morphine | [facility] | (unknown) | | | | Hospital | | + + + + + | (no date) | Morphine | [facility] | (unknown) | | | | Hospital | | + + + + + | (no date) | morphine | [facility] | (unknown) | + + + + + | (no date) | codeine | [facility] | (unknown) | + + + + + | (no date) | Codeine | [facility] | (unknown) | | | | Hospital | | + + + + + Encounters No information. Functional Status No information. Immunizations No information. Medications + + + + | date | description | facility | + + + + | 2022-06-21 00:00 | POTASSIUM CHLORIDE | [facility] | + + + + | 2023-05-03 00:00 | POTASSIUM CHLORIDE | [facility] | + + + + | 2022-06-21 00:00 | CLONAZEPAM | [facility] | + + + + | 2023-05-03 00:00 | CLONAZEPAM | [facility] | + + + + | 2022-06-21 00:00 | METHYCLOTHIAZIDE | [facility] | + + + + | 2023-05-03 00:00 | METHYCLOTHIAZIDE | [facility] | + + + + | 2022-06-21 00:00 | POTASSIUM CHLORIDE | [facility] | + + + + | 2023-05-03 00:00 | POTASSIUM CHLORIDE | [facility] | + + + + | 2022-06-21 00:00 | SIMVASTATIN | [facility] | + + + + | 2023-05-03 00:00 | SIMVASTATIN | [facility] | + + + + | 2021-02-25 00:00 | ONDANSETRON | [facility] | + + + + | 2021-02-25 00:00 | ONDANSETRON | [facility] | + + + + | 2022-06-21 00:00 | SPIRONOLACTONE | [facility] | + + + + | 2023-05-03 00:00 | SPIRONOLACTONE | [facility] | + + + + | 2020-12-30 00:00 | VANCOMYCIN HCL | [facility] | + + + + | 2020-12-30 00:00 | VANCOMYCIN HCL | [facility] | + + + + | 2022-06-21 00:00 | HYDROCHLOROTHIAZIDE | [facility] | + + + + | 2023-05-03 00:00 | HYDROCHLOROTHIAZIDE | [facility] | + + + + | 2020-12-30 00:00 | AMOXICILLIN/POTASSIUM CLAV | [facility] | | | | | + + + + | 2020-12-30 00:00 | AMOXICILLIN/POTASSIUM CLAV | [facility] | | | | | + + + + | 2021-05-24 00:00 | AMOXICILLIN/POTASSIUM CLAV | [facility] | | | | | + + + + | 2021-05-24 00:00 | AMOXICILLIN/POTASSIUM CLAV | [facility] | | | | | + + + + | 2022-06-21 00:00 | TRAMADOL HCL | [facility] | + + + + | 2023-05-03 00:00 | TRAMADOL HCL | [facility] | + + + + | 2022-06-16 00:00 | HYDROCODONE | [facility] | | | BIT/ACETAMINOPHEN | | + + + + | 2022-06-21 00:00 | PRAMIPEXOLE DI-HCL | [facility] | + + + + | 2023-05-03 00:00 | PRAMIPEXOLE DI-HCL | [facility] | + + + + | 2022-06-21 00:00 | DICYCLOMINE HCL | [facility] | + + + + | 2023-05-03 00:00 | DICYCLOMINE HCL | [facility] | + + + + Problems + + + + | date | description | facility | + + + + | 2016-06-02 00:00 | Right lower quadrant | [facility] | | | abdominal pain | | + + + + | 2016-06-02 00:00 | Right lower quadrant | [facility] | | | abdominal pain | | + + + + | 2019-07-21 00:00 | Hypertension | [facility] | + + + + | 2019-07-21 00:00 | Hypertension | [facility] | + + + + | 2020-12-26 00:00 | Acute diverticulitis of | [facility] | | | intestine | | + + + + | 2020-12-26 00:00 | Acute diverticulitis of | [facility] | | | intestine | | + + + + | 2021-02-25 00:00 | Colitis due to | [facility] | | | Clostridioides difficile | | + + + + | 2021-02-25 00:00 | Colitis due to | [facility] | | | Clostridioides difficile | | + + + + | 2021-02-25 00:00 | Recurrent abdominal pain | [facility] | + + + + | 2021-02-25 00:00 | Recurrent abdominal pain | [facility] | + + + + | 2021-05-24 00:00 | Diverticulitis | [facility] | + + + + | 2021-05-24 00:00 | Diverticulitis | [facility] | + + + + | 2023-05-03 00:00 | Rectal pain in pediatric | [facility] | | | patient | | + + + + | 2023-05-03 00:00 | Rectal pain | [facility] | + + + + Procedures No information. Results/Labs +--------+--------+ + +---------+--------+ + | test | date | author | facility | value | unit | | | | | | | | | interpreta | | | | | | | | tion | +--------+--------+ + +---------+--------+ + + + | Result panel 1 | + + + + + + +---------+ + + | (unknown) | (no date) | (unknown) | [facility] | (no | (units | (unknown) | | | [facility] value[facility] | [facility] | [facility] | | | | + + + + +---------+ + + + + | Result panel 2 | + + + + + + +---------+ + + | (unknown) | (no date) | (unknown) | [facility] | (no | (units | (unknown) | | | | [facility] | value) | unknown) | | | | [facility] | | | | + + + + +---------+ + + + + | Result panel 3 | + + + + + + +---------+ + + | (unknown) | (no date) | (unknown) | [facility] | (no | (units | (unknown) | | | | [facility] | value) | unknown) | | | | [facility] | | | | + + + + +---------+ + + + + | Result panel 4 | + + + + + + +---------+ + + | (unknown) | (no date) | (unknown) | [facility] | (no | (units | (unknown) | | | | [facility] | value) | unknown) | | | | [facility] | | | | + + + + +---------+ + + + + | Result panel 5 | + + + + + + +---------+ + + | (unknown) | (no date) | (unknown) | [facility] | (no | (units | (unknown) | | | | [facility] | value) | unknown) | | | | [facility] | | | | + + + + +---------+ + + + + | Result panel 6 | + + + + + + +---------+ + + | (unknown) | (no date) | (unknown) | [facility] | (no | (units | (unknown) | | | | [facility] | value) | unknown) | | | | | [facility] | | | | + + + + +---------+ + + + + | Result panel 7 | + + + + + + +---------+ + + | (unknown) | (no date) | (unknown) | [facility] | (no | (units | (unknown) | | | | [facility] | value) | unknown) | | | | | [facility] | | | | + + + + +---------+ + + + + | Result panel 8 | + + + + + + +---------+ + + | (unknown) | (no date) | (unknown) | [facility] | (no | (units | (unknown) | | | | [facility] | value) | unknown) | | | | [facility] | | | | + + + + +---------+ + + + + | Result panel 9 | + + + + + + +---------+ + + | (unknown) | (no date) | (unknown) | [facility] | (no | (units | (unknown) | | | | [facility] | value) | unknown) | | | | [facility] | | | | + + + + +---------+ + + + + | Result panel 10 | + + + + + + +---------+ + + | (unknown) | (no date) | (unknown) | [facility] | (no | (units | (unknown) | | | | [facility] | value) | unknown) | | | | [facility] | | | | + + + + +---------+ + + + + | Result panel 11 | + + + + + + +---------+ + + | (unknown) | (no date) | (unknown) | [facility] | (no | (units | (unknown) | | | | [facility] | value) | unknown) | | | | | [facility] | | | | + + + + +---------+ + + + + | Result panel 12 | + + + + + + +---------+ + + | (unknown) | (no date) | (unknown) | [facility] | (no | (units | (unknown) | | | | [facility] | value) | unknown) | | | | [facility] | | | | + + + + +---------+ + + + + | Result panel 13 | + + + + + + +---------+ + + | (unknown) | (no date) | (unknown) | [facility] | (no | (units | (unknown) | | | | [facility] | value) | unknown) | | | | [facility] | | | | + + + + +---------+ + + + + | Result panel 14 | + + + + + + +---------+ + + | (unknown) | (no date) | (unknown) | [facility] | (no | (units | (unknown) | | | | [facility] | value) | unknown) | | | | [facility] | | | | + + + + +---------+ + + + + | Result panel 15 | + + + + + + +---------+ + + | (unknown) | (no date) | (unknown) | [facility] | (no | (units | (unknown) | | | | [facility] | value) | unknown) | | | | [facility] | | | | + + + + +---------+ + + + + | Result panel 16 | + + + + + + +---------+ + + | (unknown) | (no date) | (unknown) | [facility] | (no | (units | (unknown) | | | | [facility] | value) | unknown) | | | | [facility] | | | | + + + + +---------+ + + + + | Result panel 17 | + + + + + + +---------+ + + | (unknown) | (no date) | (unknown) | [facility] | (no | (units | (unknown) | | | | [facility] | value) | unknown) | | | | [facility] | | | | + + + + +---------+ + + + + | Result panel 18 | + + + + + + +---------+ + + | (unknown) | (no date) | (unknown) | [facility] | (no | (units | (unknown) | | | | [facility] | value) | unknown) | | | | [facility] | | | | + + + + +---------+ + + + + | Result panel 19 | + + + + + + +---------+ + + | (unknown) | (no date) | (unknown) | [facility] | (no | (units | (unknown) | | | | [facility] | value) | unknown) | | | | [facility] | | | | + + + + +---------+ + + + + | Result panel 20 | + + + + + + +---------+ + + | (unknown) | (no date) | (unknown) | [facility] | (no | (units | (unknown) | | | | [facility] | value) | unknown) | | | | [facility] | | | | + + + + +---------+ + + + + | Result panel 21 | + + + + + + +---------+ + + | (unknown) | (no date) | (unknown) | [facility] | (no | (units | (unknown) | | | | [facility] | value) | unknown) | | | | [facility] | | | | + + + + +---------+ + + + + | Result panel 22 | + + + + + + +---------+ + + | (unknown) | (no date) | (unknown) | [facility] | (no | (units | (unknown) | | | | [facility] | value) | unknown) | | | | [facility] | | | | + + + + +---------+ + + + + | Result panel 23 | + + + + + + +---------+ + + | (unknown) | (no date) | (unknown) | [facility] | (no | (units | (unknown) | | | | [facility] | value) | unknown) | | | | [facility] | | | | + + + + +---------+ + + + + | Result panel 24 | + + + + + + +---------+ + + | (unknown) | (no date) | (unknown) | [facility] | (no | (units | (unknown) | | | | [facility] | value) | unknown) | | | | [facility] | | | | + + + + +---------+ + + + + | Result panel 25 | + + + + + + +---------+ + + | (unknown) | (no date) | (unknown) | [facility] | (no | (units | (unknown) | | | | [facility] | value) | unknown) | | | | [facility] | | | | + + + + +---------+ + + + + | Result panel 26 | + + + + + + +---------+ + + | (unknown) | (no date) | (unknown) | [facility] | (no | (units | (unknown) | | | | [facility] | value) | unknown) | | | | [facility] | | | | + + + + +---------+ + + + + | Result panel 27 | + + + + + + +---------+ + + | (unknown) | (no date) | (unknown) | [facility] | (no | (units | (unknown) | | | | [facility] | value) | unknown) | | | | [facility] | | | | + + + + +---------+ + + + + | Result panel 28 | + + + + + + +---------+ + + | (unknown) | (no date) | (unknown) | [facility] | (no | (units | (unknown) | | | | [facility] | value) | unknown) | | | | [facility] | | | | + + + + +---------+ + + + + | Result panel 29 | + + + + + + +---------+ + + | (unknown) | (no date) | (unknown) | [facility] | (no | (units | (unknown) | | | | [facility] | value) | unknown) | | | | [facility] | | | | + + + + +---------+ + + + + | Result panel 30 | + + + + + + +---------+ + + | (unknown) | (no date) | (unknown) | [facility] | (no | (units | (unknown) | | | | [facility] | value) | unknown) | | | | [facility] | | | | + + + + +---------+ + + + + | Result panel 31 | + + + + + + +---------+ + + | (unknown) | (no date) | (unknown) | [facility] | (no | (units | (unknown) | | | | [facility] | value) | unknown) | | | | [facility] | | | | + + + + +---------+ + + + + | Result panel 32 | + + + + + + +---------+ + + | (unknown) | (no date) | (unknown) | [facility] | (no | (units | (unknown) | | | | [facility] | value) | unknown) | | | | [facility] | | | | + + + + +---------+ + + + + | Result panel 33 | + + + + + + +---------+ + + | (unknown) | (no date) | (unknown) | [facility] | (no | (units | (unknown) | | | | [facility] | value) | unknown) | | | | [facility] | | | | + + + + +---------+ + + + + | Result panel 34 | + + + + + + +---------+ + + | (unknown) | (no date) | (unknown) | [facility] | (no | (units | (unknown) | | | | [facility] | value) | unknown) | | | | [facility] | | | | + + + + +---------+ + + + + | Result panel 35 | + + + + + + +---------+ + + | (unknown) | (no date) | (unknown) | [facility] | (no | (units | (unknown) | | | | [facility] | value) | unknown) | | | | [facility] | | | | + + + + +---------+ + + + + | Result panel 36 | + + + + + + +---------+ + + | (unknown) | (no date) | (unknown) | [facility] | (no | (units | (unknown) | | | | [facility] | value) | unknown) | | | | [facility] | | | | + + + + +---------+ + + + + | Result panel 37 | + + + + + + +---------+ + + | (unknown) | (no date) | (unknown) | [facility] | (no | (units | (unknown) | | | | [facility] | value) | unknown) | | | | [facility] | | | | + + + + +---------+ + + + + | Result panel 38 | + + + + + + +---------+ + + | (unknown) | (no date) | (unknown) | [facility] | (no | (units | (unknown) | | | | [facility] | value) | unknown) | | | | [facility] | | | | + + + + +---------+ + + + + | Result panel 39 | + + + + + + +---------+ + + | (unknown) | (no date) | (unknown) | [facility] | (no | (units | (unknown) | | | | [facility] | value) | unknown) | | | | [facility] | | | | + + + + +---------+ + + + + | Result panel 40 | + + + + + + +---------+ + + | (unknown) | (no date) | (unknown) | [facility] | (no | (units | (unknown) | | | | [facility] | value) | unknown) | | | | [facility] | | | | + + + + +---------+ + + + + | Result panel 41 | + + + + + + +---------+ + + | (unknown) | (no date) | (unknown) | [facility] | (no | (units | (unknown) | | | | [facility] | value) | unknown) | | | | [facility] | | | | + + + + +---------+ + + + + | Result panel 42 | + + + + + + +---------+ + + | (unknown) | (no date) | (unknown) | [facility] | (no | (units | (unknown) | | | | [facility] | value) | unknown) | | | | [facility] | | | | + + + + +---------+ + + + + | Result panel 43 | + + + + + + +---------+ + + | (unknown) | (no date) | (unknown) | [facility] | (no | (units | (unknown) | | | | [facility] | value) | unknown) | | | | [facility] | | | | + + + + +---------+ + + + + | Result panel 44 | + + + + + + +---------+ + + | (unknown) | (no date) | (unknown) | [facility] | (no | (units | (unknown) | | | | [facility] | value) | unknown) | | | | [facility] | | | | + + + + +---------+ + + + + | Result panel 45 | + + + + + + +---------+ + + | (unknown) | (no date) | (unknown) | [facility] | (no | (units | (unknown) | | | | [facility] | value) | unknown) | | | | [facility] | | | | + + + + +---------+ + + + + | Result panel 46 | + + + + + + +---------+ + + | (unknown) | (no date) | (unknown) | [facility] | (no | (units | (unknown) | | | | [facility] | value) | unknown) | | | | [facility] | | | | + + + + +---------+ + + + + | Result panel 47 | + + + + + + +---------+ + + | (unknown) | (no date) | (unknown) | [facility] | (no | (units | (unknown) | | | | [facility] | value) | unknown) | | | | [facility] | | | | + + + + +---------+ + + + + | Result panel 48 | + + + + + + +---------+ + + | (unknown) | (no date) | (unknown) | [facility] | (no | (units | (unknown) | | | | [facility] | value) | unknown) | | | | [facility] | | | | + + + + +---------+ + + + + | Result panel 49 | + + + + + + +---------+ + + | (unknown) | (no date) | (unknown) | [facility] | (no | (units | (unknown) | | | | [facility] | value) | unknown) | | | | [facility] | | | | + + + + +---------+ + + + + | Result panel 50 | + + + + + + +---------+ + + | (unknown) | (no date) | (unknown) | [facility] | (no | (units | (unknown) | | | | [facility] | value) | unknown) | | | | [facility] | | | | + + + + +---------+ + + + + | Result panel 51 | + + + + + + +---------+ + + | (unknown) | (no date) | (unknown) | [facility] | (no | (units | (unknown) | | | | [facility] | value) | unknown) | | | | [facility] | | | | + + + + +---------+ + + + + | Result panel 52 | + + + + + + +---------+ + + | (unknown) | (no date) | (unknown) | [facility] | (no | (units | (unknown) | | | | [facility] | value) | unknown) | | | | [facility] | | | | + + + + +---------+ + + + + | Result panel 53 | + + + + + + +---------+ + + | (unknown) | (no date) | (unknown) | [facility] | (no | (units | (unknown) | | | | [facility] value) | unknown) | | [facility] | | | | + + + + +---------+ + + Social History No information. Vital Signs + + + +---------+ | date | measurement | value | units | + + + +---------+ | 2022-06-16 00:00 | BMI | 26.9 | kg/m2 | + + + +---------+ | 2022-06-16 00:00 | BP_diastolic | 74 | mmHg | + + + +---------+ | 2022-06-16 00:00 | BP_systolic | 122 | mmHg | + + + +---------+ | 2022-06-16 00:00 | heart_rate | 89 | /min | + + + +---------+ | 2022-06-16 00:00 | height_metric | 157.48 | cm | + + + +---------+ | 2022-06-16 00:00 | height_standard | 62 | in | + + + +---------+ | 2022-06-16 00:00 | o2_saturation | 98 | % | + + + +---------+ | 2022-06-16 00:00 | respiration_rate | 16 | /min | + + + +---------+ | 2022-06-16 00:00 | temperature_metric | 36.78 | C | | | | | | + + + +---------+ | 2022-06-16 00:00 | | 98.2 | F | | | temperature_standar | | | | | d | | | + + + +---------+ | 2022-06-16 00:00 | weight_metric | 66.68 | kg | + + + +---------+ | 2022-06-16 00:00 | weight_standard | 147 | lb | + + + +---------+ | 2023-05-03 00:00 | BMI | 28.0 | kg/m2 | + + + +---------+ | 2023-05-03 00:00 | BP_diastolic | 97 | mmHg | + + + +---------+ | 2023-05-03 00:00 | BP_systolic | 137 | mmHg | + + + +---------+ | 2023-05-03 00:00 | heart_rate | 88 | /min | + + + +---------+ | 2023-05-03 00:00 | height_metric | 157.48 | cm | + + + +---------+ | 2023-05-03 00:00 | height_standard | 62 | in | + + + +---------+ | 2023-05-03 00:00 | o2_saturation | 98 | % | + + + +---------+ | 2023-05-03 00:00 | respiration_rate | 20 | /min | + + + +---------+ | 2023-05-03 00:00 | temperature_metric | 36.5 | C | | | | | | + + + +---------+ | 2023-05-03 00:00 | | 97.7 | F | | | temperature_standar | | | | | d | | | + + + +---------+ | 2023-05-03 00:00 | weight_metric | 69.4 | kg | + + + +---------+ | 2023-05-03 00:00 | weight_standard | 153 | lb | + + + +---------+"
--- OUTSIDE RECORDS SUMMARY | ~2023-05-04 | XMS | Continuity of Care Document ---
Demographics + + + | Address | [address] | | | [place] [address] | + + + | Preferred Language | Unknown | + + + | Marital Status | | + + + | Roman Catholic Affiliation | Unknown | + + + | Race | White | + + + | Ethnic Group | Not or | + + + Author + + + | Author | [facility] | + + + | Organization | [facility] | + + + | Address | [address] | | | [place] [address] | + + + | Phone | | + + + Care Team Providers + + + + | Care Portable Router Operator Name | Role | Phone | + + + + Unavailable | Unavailable | + + + + Unavailable | Unavailable | + + + + Unavailable | Unavailable | + + + + Allergies and Intolerances + + + + + | date | description | facility | type | + + + + + | (no date) | Codeine | [facility] (unknown) | | [facility] | | + + + + + | (no date) | codeine | [facility] | (unknown) | | | | Hospital | | + + + + + | (no date) | Morphine | [facility] | (unknown) | | | | Hospital | | + + + + + | (no date) | Codeine | [facility] | (unknown) | | | | Hospital | | + + + + + | (no date) | Psychosis | [facility] | (unknown) | | | | Hospital | | + + + + + | (no date) | Morphine | [facility] | (unknown) | | | | Hospital | | + + + + + | (no date) | morphine | [facility] | (unknown) | | | | Hospital | | + + + + + | (no date) | Morphine | [facility] | (unknown) | | | | Hospital | | + + + + + | (no date) | morphine | [facility] | (unknown) | + + + + + | (no date) | codeine | [facility] | (unknown) | + + + + + | (no date) | Codeine | [facility] | (unknown) | | | | Hospital | | + + + + + Encounters No information. Functional Status No information. Immunizations No information. Medications + + + + | date | description | facility | + + + + | 2022-06-21 00:00 | POTASSIUM CHLORIDE | [facility] | + + + + | 2023-05-03 00:00 | POTASSIUM CHLORIDE | [facility] | + + + + | 2022-06-21 00:00 | CLONAZEPAM | [facility] | + + + + | 2023-05-03 00:00 | CLONAZEPAM | [facility] | + + + + | 2022-06-21 00:00 | METHYCLOTHIAZIDE | [facility] | + + + + | 2023-05-03 00:00 | METHYCLOTHIAZIDE | [facility] | + + + + | 2022-06-21 00:00 | POTASSIUM CHLORIDE | [facility] | + + + + | 2023-05-03 00:00 | POTASSIUM CHLORIDE | [facility] | + + + + | 2022-06-21 00:00 | SIMVASTATIN | [facility] | + + + + | 2023-05-03 00:00 | SIMVASTATIN | [facility] | + + + + | 2021-02-25 00:00 | ONDANSETRON | [facility] | + + + + | 2021-02-25 00:00 | ONDANSETRON | [facility] | + + + + | 2022-06-21 00:00 | SPIRONOLACTONE | [facility] | + + + + | 2023-05-03 00:00 | SPIRONOLACTONE | [facility] | + + + + | 2020-12-30 00:00 | VANCOMYCIN HCL | [facility] | + + + + | 2020-12-30 00:00 | VANCOMYCIN HCL | [facility] | + + + + | 2022-06-21 00:00 | HYDROCHLOROTHIAZIDE | [facility] | + + + + | 2023-05-03 00:00 | HYDROCHLOROTHIAZIDE | [facility] | + + + + | 2020-12-30 00:00 | AMOXICILLIN/POTASSIUM CLAV | [facility] | | | | | + + + + | 2020-12-30 00:00 | AMOXICILLIN/POTASSIUM CLAV | [facility] | | | | | + + + + | 2021-05-24 00:00 | AMOXICILLIN/POTASSIUM CLAV | [facility] | | | | | + + + + | 2021-05-24 00:00 | AMOXICILLIN/POTASSIUM CLAV | [facility] | | | | | + + + + | 2022-06-21 00:00 | TRAMADOL HCL | [facility] | + + + + | 2023-05-03 00:00 | TRAMADOL HCL | [facility] | + + + + | 2022-06-16 00:00 | HYDROCODONE | [facility] | | | BIT/ACETAMINOPHEN | | + + + + | 2022-06-21 00:00 | PRAMIPEXOLE DI-HCL | [facility] | + + + + | 2023-05-03 00:00 | PRAMIPEXOLE DI-HCL | [facility] | + + + + | 2022-06-21 00:00 | DICYCLOMINE HCL | [facility] | + + + + | 2023-05-03 00:00 | DICYCLOMINE HCL | [facility] | + + + + Problems + + + + | date | description | facility | + + + + | 2016-06-02 00:00 | Right lower quadrant | [facility] | | | abdominal pain | | + + + + | 2016-06-02 00:00 | Right lower quadrant | [facility] | | | abdominal pain | | + + + + | 2019-07-21 00:00 | Hypertension | [facility] | + + + + | 2019-07-21 00:00 | Hypertension | [facility] | + + + + | 2020-12-26 00:00 | Acute diverticulitis of | [facility] | | | intestine | | + + + + | 2020-12-26 00:00 | Acute diverticulitis of | [facility] | | | intestine | | + + + + | 2021-02-25 00:00 | Colitis due to | [facility] | | | Clostridioides difficile | | + + + + | 2021-02-25 00:00 | Colitis due to | [facility] | | | Clostridioides difficile | | + + + + | 2021-02-25 00:00 | Recurrent abdominal pain | [facility] | + + + + | 2021-02-25 00:00 | Recurrent abdominal pain | [facility] | + + + + | 2021-05-24 00:00 | Diverticulitis | [facility] | + + + + | 2021-05-24 00:00 | Diverticulitis | [facility] | + + + + | 2023-05-03 00:00 | Rectal pain in pediatric | [facility] | | | patient | | + + + + | 2023-05-03 00:00 | Rectal pain | [facility] | + + + + Procedures [...]
--- OUTSIDE RECORDS SUMMARY | ~2023-05-04 | XMS | Continuity of Care Document ---
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 Name | Role | Phone | [...] | (no date) | Codeine | [facility] | (unknown) | | | | Hospital | | + + + + + | (no date) | codeine | [facility] | (unknown) | | | | Hospital | | + + + + + | (no date) | Morphine | [facility] | (unknown) | | | | Hospital | | + + + + + | (no date) | Codeine | [facility] | (unknown) | | | | Hospital | | + + + + + | (no date) | Psychosis | [facility] | (unknown) | | | | Hospital | | + + + + + | (no date) | Morphine | [facility] | (unknown) | | | | Hospital | | + + + + + | (no date) | morphine | [facility] | (unknown) | | | | Hospital | | + + + + + | (no date) | Morphine | [facility] | (unknown) | | | | Hospital | | + + + + + | (no date) | morphine | [facility] | (unknown) | + + + + + | (no date) | codeine | [facility] | (unknown) | + + + + + | (no date) | Codeine | [facility] | (unknown) | | | | Hospital | | + + + + + Encounters No information. Functional Status No information. Immunizations No information. Medications + + + + | date | description | facility | + + + + | 2022-06-21 00:00 | POTASSIUM CHLORIDE | [facility] | + + + + | 2023-05-03 00:00 | POTASSIUM CHLORIDE | [facility] | + + + + | 2022-06-21 00:00 | CLONAZEPAM | [facility] | + + + + | 2023-05-03 00:00 | CLONAZEPAM | [facility] | + + + + | 2022-06-21 00:00 | METHYCLOTHIAZIDE | [facility] | + + + + | 2023-05-03 00:00 | METHYCLOTHIAZIDE | [facility] | + + + + | 2022-06-21 00:00 | POTASSIUM CHLORIDE | [facility] | + + + + | 2023-05-03 00:00 | POTASSIUM CHLORIDE | [facility] | + + + + | 2022-06-21 00:00 | SIMVASTATIN | [facility] | + + + + | 2023-05-03 00:00 | SIMVASTATIN | [facility] | + + + + | 2021-02-25 00:00 | ONDANSETRON | [facility] | + + + + | 2021-02-25 00:00 | ONDANSETRON | [facility] | + + + + | 2022-06-21 00:00 | SPIRONOLACTONE | [facility] | + + + + | 2023-05-03 00:00 | SPIRONOLACTONE | [facility] | + + + + | 2020-12-30 00:00 | VANCOMYCIN HCL | [facility] | + + + + | 2020-12-30 00:00 | VANCOMYCIN HCL | [facility] | + + + + | 2022-06-21 00:00 | HYDROCHLOROTHIAZIDE | [facility] | + + + + | 2023-05-03 00:00 | HYDROCHLOROTHIAZIDE | [facility] | + + + + | 2020-12-30 00:00 | AMOXICILLIN/POTASSIUM CLAV | [facility] | | | | | + + + + | 2020-12-30 00:00 | AMOXICILLIN/POTASSIUM CLAV | [facility] | | | | | + + + + | 2021-05-24 00:00 | AMOXICILLIN/POTASSIUM CLAV | [facility] | | | | | + + + + | 2021-05-24 00:00 | AMOXICILLIN/POTASSIUM CLAV | [facility] | | | | | + + + + | 2022-06-21 00:00 | TRAMADOL HCL | [facility] | + + + + | 2023-05-03 00:00 | TRAMADOL HCL | [facility] | + + + + | 2022-06-16 00:00 | HYDROCODONE | [facility] | | | BIT/ACETAMINOPHEN | | + + + + | 2022-06-21 00:00 | PRAMIPEXOLE DI-HCL | [facility] | + + + + | 2023-05-03 00:00 | PRAMIPEXOLE DI-HCL | [facility] | + + + + | 2022-06-21 00:00 | DICYCLOMINE HCL | [facility] | + + + + | 2023-05-03 00:00 | DICYCLOMINE HCL | [facility] | + + + + Problems + + + + | date | description | facility | + + + + | 2016-06-02 00:00 | Right lower quadrant | [facility] | | | abdominal pain | | + + + + | 2016-06-02 00:00 | Right lower quadrant | [facility] | | | abdominal pain | | + + + + | 2019-07-21 00:00 | Hypertension | [facility] | + + + + | 2019-07-21 00:00 | Hypertension | [facility] | + + + + | 2020-12-26 00:00 | Acute diverticulitis of | [facility] | | | intestine | | + + + + | 2020-12-26 00:00 | Acute diverticulitis of | [facility] | | | intestine | | + + + + | 2021-02-25 00:00 | Colitis due to | [facility] | | | Clostridioides difficile | | + + + + | 2021-02-25 00:00 | Colitis due to | [facility] | | | Clostridioides difficile | | + + + + | 2021-02-25 00:00 | Recurrent abdominal pain | [facility] | + + + + | 2021-02-25 00:00 | Recurrent abdominal pain | [facility] | + + + + | 2021-05-24 00:00 | Diverticulitis | [facility] | + + + + | 2021-05-24 00:00 | Diverticulitis | [facility] | + + + + | 2023-05-03 00:00 | Rectal pain in pediatric | [facility] | | | patient | | + + + + | 2023-05-03 00:00 | Rectal pain | [facility] | + + + + Procedures No [...]
[~2023-05-04 13:25] MED LIST changes: +AUGMENTIN 875-1 EACH PO; +HYDROCODON-ACE1 EA10 PO
--- OUTSIDE RECORDS SUMMARY | 2023-05-04 13:32 | XMS ---
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 [place]hea VISIT COUNT (12 MO.) 3 [facility]. TOTAL 3 NOTE: Visits indicate total known visits. 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
[2023-05-04 17:06] VITALS: BP 137/78
--- NOTE | 2023-05-04 17:10 | NUR ---
Patient arrives to [facility] via stretcher from ER. Pt has NGT in place, connected to LIWS on arrival. Pt on 2L O2 via NC to maintain sats >90%, not chronic. Hx and assessment complete. VSS. Pt A+O, complains of RLS, usually takes pramipexole at home, Dr Méndez notified and IV ativan ordered. 0.5mg administered at this time. Scheduled medications given. IVF infusing WNL to L AC IV. Pt oriented to call light, room/unit. NPO. No needs at this time.
--- NOTE | 2023-05-04 18:21 | NUR ---
Patient up to BR with SBA, pt states restless leg symptoms very intense, additional 0.5 mg ativan administered to titrate to full dose. Pt able to void 200ml.
--- NOTE | 2023-05-04 19:00 | NUR ---
shift report received from juany lainez at bedside. pt awake and restless in bed, requesting pt receive her routine rls mirapex. pt a/ox4, reports she takes 1-3 0.5mg tabs at home every night before bed. telepharmacy verifying medication (order placed by juany simmons), pt to recieve medication once verified and available.
[2023-05-04 19:50] VITALS: BP 127/86
--- NOTE | 2023-05-04 20:10 | NUR ---
prn mirapex given-see emar. 1mg given at this time per pt request along with prn pain medicaiton for reported 4/10 abd pain. scd's off per clinical judgement d/t pt restlessness. pt's daughter glen and eriberto both in room and attentive to pt. ng tube clamped at this time following med administration.
--- NOTE | 2023-05-04 21:14 | NUR ---
rounded on pt, pt resting quietly in bed with eyes closed, on 2lnc. rr even and unlabored, no distress noted. spo2 in the mid to upper 90's, hr wnl. no distress noted. scd's remains off per clinical judgement. call light in reach. will conitnue to monitor.
--- NOTE | 2023-05-04 21:35 | NUR ---
rounded on pt, pt drowsy. awakens easily to voice. protocol for chest x-ray ordered to confirm ng tube placement-discussed with weigh and charge workeriris lópez. pt requesting additional mirapex, pt states, "it's better but i'd like a little more". spoke with eriberto and updated him via phone regarding pt, questions answered. remaining available 0.5mg mirapex given. cpox in place and bed alarm on for safety. call light in reach.
--- NOTE | 2023-05-04 22:45 | NUR ---
ng tube connected back to suction, pt denies nausea at time of care. pt relaxing in bed and drowsy but awakens easily to voice. ng tube patent and to liws. iv fluids infusing as directed and call light in reach. no additional needs or concerns. cpox in place and bed alarm on.
[2023-05-05] VITALS (7 sets, daily range): BP systolic 118–139; BP diastolic 54–73
--- NOTE | 2023-05-05 00:30 | NUR ---
ROUNDED ON pt, pt RESTING IN BED WITH EYES CLOSED AND RR EVEN AND UNLABORED. NO DISTRESS OR OUTWARD SIGNS OF RESTLESSNESS NOTED. 2LNC IN PLACE, CPOX SHOWS SPO2 97%, HR WNL. NG TUBE REMAINS TO LIWS, REMAINS PATENT. CALL LIGHT IN REACH AND BED ALARM ON.
--- NOTE | 2023-05-05 01:56 | NUR ---
VS AND I&O'S COLLECTED BY [facility]. NEW BAG IV FLUIDS HUNG AND INFUSING WNL DIRECTED, pT REPORTS 5/10 ABD PAIN, DENIES NASUEA. PRN PAIN MEIDCATION ASLO GIVNE-SEE EMAR. NG TUBE REMSIN PATENT AND TO LIWS, OUTPUT BROWN IN COLOR. BED ALARM ON FOR SAFETY AND CALL LIGHT IN REACH. NO ADDITIONAL NEEDS OR CONCERNS.
--- NOTE | 2023-05-05 02:18 | NUR ---
INFORMED BY VON GUTIERREZ pt's DAUGHTER DANE CALLED BUT THIS RN WAS IN PT ROOM AT THE TIME. PER BRENDA RN, NO NEED TO CALL BACK DAUGHTER LONG EVERYTHING WAS OKAY. DAUGHTER'S # [phone].
--- NOTE | 2023-05-05 02:21 | NUR ---
DD FROM RT CALLED AND INFORMED OF ORDERED EKG, RT TO COME TO pt ROOM AND COMPLETE.
--- NOTE | 2023-05-05 02:47 | NUR ---
pt REPORTS PAIN TO THROAT D/T SWALLOWING FROM NG TUBE. ORDER PLACED FOR CHLORASEPTIC SPRAY. CARDIAC TECH TO BRING ONCE AVAILABLE.
--- NOTE | 2023-05-05 05:26 | CONS ---
[facility] [address], [place] [address] Signed DATE OF CONSULTATION: 05/04/2023 CHIEF COMPLAINT: Vomiting. 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 She has had various abdominal surgeries including a laparoscopic cholecystectomy, partial vaginal hysterectomy for benign indication for a prolapsing uterus and also an abdominoplasty and a sacral stimulator placed because of trauma. She came yesterday with some abdominal pain. Workup was negative including a CT scan. She came back today after trying her usual milk of magnesia and a Fleet's enema along with some hydration. She developed generalized abdominal pain with vomiting and was getting dehydrated. The abdominal exam shows that she is mildly distended and her creatinine is up a little at 1.5. The repeat CT scan with IV contrast shows that she now has dilated small bowel at 3.3 cm and with what appears to be a transition point in the distal ileum down in the central pelvis. She has a small hiatal hernia. She has severe diverticulosis. She has been given some IV fluids and NG tube has been placed. I have been asked to admit her as a general surgeon on-call. 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 PAST SURGICAL HISTORY: Includes laparoscopic cholecystectomy, partial vaginal hysterectomy, breast lumpectomy with Dr. Rodriguez, abdominoplasty and the sacral stimulator after trauma in the right flank back in 2013 and again in 2019. SOCIAL HISTORY: She does not smoke or drink. She is to [facility] at [phone] Mckoy is her primary care provider. She prefers the [facility] pharmacy. She has four children, all born vaginally. She is retired as an extended care web operations administrator. She drives. very active. FAMILY HISTORY: None. REVIEW OF SYSTEMS: She had 10 systems reviewed and she surgeries. ALLERGIES: Electronically Signed By: AHSAN PÉREZ MD 05/05/23 0526 PATIENT NAME: ALAN BRICEÑO CONSULTATION DATE OF : 42 REPORT #: [id number] PHYSICIAN: AHSAN PÉREZ MD PCP: DAYAMI MCKOY MD REPORT IS CONFIDENTIAL AND NOT TO BE RELEASED WITHOUT AUTHORIZATION [facility] [address], [place] [address] Signed Morphine and codeine. MEDICATIONS: Pramipexole 0.5 mg 1 to 3 tablets p.o. about 2 to 3 hours before bed for restless legs syndrome. PHYSICAL EXAMINATION: VITAL SIGNS: Her blood pressure is 120/81, heart rate is 97, respiratory rate is 20, temperature is 97.8. She is 96% on room air. She is 5 feet 2 inches at 67 kg with a body mass index of 27. GENERAL: Alan is an 82-year-old female lying supine semi-recumbent in the ER bed. Her nurse is with her along with her . She does not appear systemically ill or toxic. She just had her nasogastric tube placed. LUNGS: Generally clear to auscultation bilaterally. HEART: Regular rate and rhythm without murmurs. ABDOMEN: Mildly distended and mildly firm, but nontender and without any peritoneal signs or symptoms. No obvious hernias. LABORATORY DATA: Her white blood cell count is 13.9, hemoglobin 15, neutrophils 84, BUN 29, creatinine 1.53. Liver function test is negative. Albumin 3.9, lipase 65. Urinalysis pending. RADIOGRAPHIC STUDIES: I reviewed the reports and images from the CT scan done yesterday, which was unremarkable except for some stool. Also, the severe diverticulosis. Today, she now has small bowel that is dilated and fluid-filled about 3.3 cm with a transition point in the distal ileum and her central pelvis. She has a small hiatal hernia and of course the severe diverticulosis. ASSESSMENT AND PLAN: Alan is an 82-year-old female, who presents with a distal small-bowel obstruction and dehydration. She is going to be admitted and treated conservatively. I have reviewed the above findings with Alan and her in detail. She is well aware that if this does not resolve, she will need surgery in a few days. She has expressed understanding and agreed with the above plan. Ahsan Pérez MD ALB/MODL /[id number] Electronically Signed By: AHSAN PÉREZ MD 05/05/23 0526 PATIENT NAME: ALAN BRICEÑO ANN CONSULTATION DATE OF : 42 REPORT #: [id number] PHYSICIAN: AHSAN PÉREZ MD PCP: DAYAMI MCKOY MD REPORT IS CONFIDENTIAL AND NOT TO BE RELEASED WITHOUT AUTHORIZATION [facility] [address] [place], [place] [address] Signed cc: MD Dr. Dayami Cali Copies: AHSAN PÉREZ MD ~ Electronically Signed By: AHSAN PÉREZ MD 05/05/23 0526 PATIENT NAME: ALAN BRICEÑO CONSULTATION DATE OF : 42 REPORT #: [id number] PHYSICIAN: AHSAN PÉREZ MD PCP: DAYAMI MCKOY MD REPORT IS CONFIDENTIAL AND NOT TO BE RELEASED WITHOUT AUTHORIZATION
--- NOTE | 2023-05-05 05:42 | NUR ---
PATIENT VITALS AND I/OS CHARTED. PATIENT ROOM TIDIED, CALL LIGHT LEFT WITHIN REACH. MORE MOUTH SWABS PROVIDED. PT. DENIED NEEDING TO USE RESTROOM. NO OTHER NEEDS AT THIS TIME.
--- NOTE | 2023-05-05 06:12 | NUR ---
dr wellington at rn station and updated md on pt over the shift. also discussed findings of ng tube placement, verbal order read back-okay to advance ng tube approx 4 inches. advancement completed and new tape rosa maria in place. dr wellington to place repeat chest x-ray for placement, radiology in room. per dr wellington, pt okay'd to receive prn q2h chlorasceptic spray for sore throat, read back to confirm.
--- NOTE | 2023-05-05 06:48 | NUR ---
repeat chest x-ray shows tip of ng tube within the gastric antrum, results reviewed by dr wellington and no additional orders regarding ng tube received.
--- NOTE | 2023-05-05 07:25 | NUR ---
Patient resting in bed, no acute distress, respirations even and non labored. NG to LIWS, scant amount of light brown gastric content noted. Patient's head of hed is elevated at this time. Call light within reach of patient. Bed alarm intact.
--- NOTE | 2023-05-05 09:26 | NUR ---
Admin dilaudid 1mg IV for reports of 6/10 abdominal pain. Patient denies nausea at this time. NG intact, draining dark brown gastric content. IV site patent, fluids infusing per provider order. Bed alarm intact. at bedside.
--- NOTE | 2023-05-05 12:27 | NUR ---
Patient resting in bed, eyes closed, respirations even and non labored. Patient remains on 2L oxygen per nc, sp02 96%. NG patent/intact, notable dark brown gastric content. IV site remains patent, fluids infusing per provider order. Call light within reach of patient.
--- NOTE | 2023-05-05 13:00 | NUR ---
Spoke with pt and her spouse. Pt states she has had many issues with her bowels. Now has sbo. They live in a 1 story home with 1 step. no issues getting in or out of home. Pt does not use any DME, she drives. They both deny any concerns for finances. Spouse will assist patient as needed. Pt plans on dc to home when cleared medically.
--- NOTE | 2023-05-05 14:55 | NUR ---
Patient resting in bed visiting with her at bedside, no acute distress. Patient reports tolerable abdominal pain, no nausea. IV site remains patent, fluids infusing per provider order. Patient has no needs, call light within reach.
--- NOTE | 2023-05-05 15:29 | NUR ---
PT REQUESTED ASSISTANCE UP TO THE BATHROOM. WHEN ASSISTING PT OUT OF THE BED SHE BEGAN COUGHING UP THICK SPUTUM. PT STATED, "I FEEL ANXIOUS ABOUT THIS COUGHING." LYE TREATER FINISHED ASSISTING PT TO THE BATHROOM AND NOTIFIED THE NURSE ABOUT THE PT'S COUGHING AND SPUTUM. PT ASSISTED BACK TO BED WHEN NURSE ENTERED THE ROOM. CALL LIGHT WITHIN REACH.
--- NOTE | 2023-05-05 15:38 | NUR ---
Patient reports having a coughing fit with throat pain. Chloraseptic spray provided at this time. Patient reports small amount of blood on tissue after her coughing fit. NG unchanged, intact and patent to LIWS, notable dark brown gastric content noted. Dilaudid 1mg iv and zofran 8mg admin at this time for nausea and abdominal pain. at bedside. Bed alarm intact, no further needs.
--- NOTE | 2023-05-05 18:12 | NUR ---
Patient awake sitting up in bed, a&ox4. Patient reports throat/abdominal pain. Admin chloraseptic throat spray and dilaudid 1mg IV at this time. Patient's NG remains intact/patent to LIWS, dark gastric drainge noted in tubing. Patient encouraged to call staff for needs. Personal supplies and call light within reach.
--- NOTE | 2023-05-05 18:43 | NUR ---
medications reconciled using pharmacy records and patient interview
--- NOTE | 2023-05-05 19:37 | NUR ---
Angely pt, gave compazine for nausea. and daughter at bedside.
--- NOTE | 2023-05-05 20:24 | NUR ---
WEARS A TRILOGY AT HOME AND WE WILL SWITH TO [facility] ON OUR BIPAP. USES 3 LPM NC DURING THE DAY AT HOME. DECREASED O2 FROM 4L TO 3L.
--- NOTE | 2023-05-05 21:59 | NUR ---
CALL RECEIVED FROM pt's SON SERJIO, REQUESTING UPDATE. UPDATE PROVIDED AND QUESTIONS ANSWERED. PRIMARY RN BRENDA UPDATED AND AWARE.
--- NOTE | 2023-05-05 23:56 | NUR ---
pt SHOWED A DESIRE TO GET OUT OF BED AND WALK STATING "LION NEVER BEEN IN BED FOR THIS LONG IN MY LIFE." THIS CHICK SEXER WALKED, SBA, 2 LAPS AROUND THE NURSES STATION WITH THE pt. pt AMBULATED WELL. pt RETURNED TO BED. CALL LIGHT IN REACH. NO FURTHER NEEDS AT THIS TIME.
--- NOTE | 2023-05-06 01:46 | NUR ---
daughter glen called and states, "i woke up and just felt like i should call and see how my mom eugenia is doing". this rn rounded on pt, pt resting quietly in bed with eyes closed. rr even and unlabored, no distress noted. call light in reach. bed alarm remains on for safety. daughter glen reassured. no futher concerns or requests.
[2023-05-06 05:17] VITALS: BP 110/6
--- NOTE | 2023-05-06 05:52 | EKG ---
[facility] [address] [place] [address] Signed Sinus bradycardia with sinus arrhythmia When compared with ECG of 20-JUL-2019 23:05, Vent. rate has decreased BY 57 BPM Confirmed by TONY RAPP MD ([id number]) on 05/06/2023 5:52:04 AM Electronically Signed By: TONY RAPP 05/06/23 0552 PATIENT NAME: MARISELA COSBYSHARIALANROGELIO Electrocardiogram DATE OF : 42 PHYSICIAN: TONY RAPP REPORT #: [id number] REPORT IS CONFIDENTIAL AND NOT TO BE RELEASED WITHOUT AUTHORIZATION
--- NOTE | 2023-05-06 07:34 | NUR ---
Patient in bed resting, eyes closed, respirations even and non labored. NG intact/patent, draining dark green gastric drainage. Patient on 2L oxygen per nc, sp02 94%.
--- NOTE | 2023-05-06 08:24 | NUR ---
Patient up to bathroom with 1pa. Patient stated she was "dizzy", while walking to and from restroom. Patient now in chair. NG intact, nurse notified. Call light within reach.
--- NOTE | 2023-05-06 08:55 | NUR ---
Dilaudid 1mg IV and zofran 8mg IV admin for reports of abdominal pain and nausea. Imaging dept taking patient at this time for bowel study. at bedside at this time.
--- NOTE | 2023-05-06 09:26 | NUR ---
Patient back to room from bowel study. IV fluids restarted at this time. NG remains clamped.
[2023-05-06 09:58] VITALS: BP 127/57
--- NOTE | 2023-05-06 10:12 | NUR ---
Patient leaving unit for bowel study.
--- NOTE | 2023-05-06 10:50 | NUR ---
pt req br needs. pt assisted to br from sba, pt back to . no needs. call light within reach
--- NOTE | 2023-05-06 13:00 | NUR ---
NG removed at this time per provider order-Cath tip intact, pt tolerated well. Patient's diet advanced to clears at this time. Patient up to restroom, small thick liquid dark brown stool noted in brief and toilet. Patient on 1L oxygen per nc, sp02 90% at this time. Patient provided with an ISS at this time.
[2023-05-06 13:12] VITALS: BP 141/57
--- NOTE | 2023-05-06 14:09 | NUR ---
PATIENT IS IN THE BATHROOM. THE DISCHARGE PLAN IS THE PATIENT WILL GO HOME WITH HER . CM WILL FOLLOW UP WITH THE PATIENT LATER TODAY.
--- NOTE | 2023-05-06 15:14 | NUR ---
SPOKE TO PATIENT ABOUT THE DISCHARGE PLAN. PATIENT WILL GO HOME WITH HER . PATIENT'S FAMILY IS ABLE TO HELP NEEDED. THE IM LETTER WAS GIVEN TO THE PATIENT PER MEDICARE AND A COPY WAS PLACED IN THE CHART.
--- NOTE | 2023-05-06 15:22 | NUR ---
PATIENT HAS BEEN UP TO THE RESTROOM SEVERAL TIMES THIS AFTERNOON PASSING BROWN LIQUID STOOL. PATIENT DENIES NAUSEA AND REPORTS IMPROVED ABDOMINAL PAIN. ACTIVE BOWEL TONES AT THIS TIME.
--- NOTE | 2023-05-06 16:12 | NUR ---
Dilaudid 1mg iv admin for abd pain, 11/16, no nausea.
--- NOTE | 2023-05-06 17:09 | NUR ---
Admin zofran 8mg iv for reports of nausea.
[2023-05-06 17:12] VITALS: BP 138/65
[2023-05-06 19:57] VITALS: BP 126/57
--- NOTE | 2023-05-06 20:28 | NUR ---
PATIENT STATES 3 YEARS AGO SHE TRIED CPAP FOR MILD VIVIANA AND DID NOT LIKE IT. RN TURNED DOWN O2 TO 1 LPM. DISCUSSED WITH PATIENT IF SHE WOULD LIKE TO BE ON RA MOTA AND SHE REQUESTED THE O2 TO BE ON.
[2023-05-06 21:53] VITALS: BP 143/61
--- NOTE | 2023-05-07 03:30 | NUR ---
Pt feels better, has some back pain due to laying in bed. Ambulating the [address]. weaned to 0.5 liters NC.
[2023-05-07 05:11] VITALS: BP 133/62
--- NOTE | 2023-05-07 07:32 | NUR ---
Patient awake, she reports she wants to go home as soon as possible. Per report, patient did not sleep well. Patient denies nausea this morning. Up to restroom at this time. Patient reports passing flatus and stool.
--- NOTE | 2023-05-07 12:20 | DS ---
[facility] [address], [place] [address] Signed ADMISSION DATE: 05/04/2023 DISCHARGE DATE: 05/07/2023 FINAL DIAGNOSES: 1. Possible small-bowel obstruction. 2. Dehydration. 3. Normocytic anemia. PROCEDURES: 1. CT scan of abdomen and pelvis x2. 2. Small bowel follow-through. 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 Consequently, she has good insight into healthcare. She has had previous abdominal surgery to include a vaginal hysterectomy for a prolapse uterus as well as laparoscopic cholecystectomy and abdominoplasty. She also has a sacral stimulator in the right flank for trauma to her anus placed back in 2013 and then replaced in 2018. She has also had breast cancer back in 2011. She is known to have severe diverticulosis. She has had C diff colitis in the past and actually went to the [facility] in [place], [place] to have a stool transplant which worked out very well. She was having trouble with upper abdominal pain, nausea and vomiting for at least a couple of weeks. She came to the emergency room and her labs and CT scan were fine on May 03. Of course, she has severe diverticulosis. She was therefore allowed to go home. There was some concern that she was constipated. She came back the next day and the repeat lab showed her white count up and possible transition point in her distal ileum and the central pelvis. Therefore, I was asked to admit her as a general surgeon on-call. HOSPITAL COURSE: Alan was admitted as above and hydrated and placed with an NG tube. She actually did well. We sent her for a small-bowel follow-through yesterday and there was no evidence of a transition point. The contrast went through and she has had multiple bowel movements. She is tolerating clear liquid diet. With hydration, she looks and feels much better. Her hemoglobin has dropped down to 11.5 with a mean cell volume of 90. Otherwise, she is actually a fairly healthy woman. Her has been in and out several times. At this point, they feel comfortable going home. DISCHARGE PLANS AND MEDICATIONS: Alan will be discharged to home without any new prescriptions. She likes her Mirapex every night for her restless legs syndrome. That will be fine. I asked her to stay on a full liquid or soft diet for a couple of days and then advance as tolerated. She can Electronically Signed By: AHSAN PÉREZ MD 05/07/23 1220 PATIENT NAME: ALAN BRICEÑO ANN DISCHARGE SUMMARY DATE OF : 42 REPORT #: [id number] PHYSICIAN: AHSAN PÉREZ MD PCP: KELSEY MCKOY MD REPORT IS CONFIDENTIAL AND NOT TO BE RELEASED WITHOUT AUTHORIZATION [address] [address] Signed follow up in my office as needed. She will see Dr. Mckoy in the weeks ahead for this anemia. She can certainly follow her activities of daily living including walking up and down stairs and showering and bathing as usual. She should not do any heavy pushing, pulling, or lifting at least for a few days until she feels a little better. She and her have expressed understanding and agreed with the above plan. Ahsan Pérez MD ALB/MODL /[id number] cc: MD Ahsan Echevarria MD Copies: AHSAN PÉREZ MD ~ Electronically Signed By: AHSAN PÉREZ MD 05/07/23 1220 PATIENT NAME: ALAN BRICEÑO DISCHARGE SUMMARY DATE OF : 42 REPORT #: [id number] PHYSICIAN: AHSAN PÉREZ MD PCP: KELSEY MCKOY MD REPORT IS CONFIDENTIAL AND NOT TO BE RELEASED WITHOUT AUTHORIZATION
== END 2023-05-07 09:00 | disposition home or self-care (01) | DRG 389 ==
LOC: ED 13:25 → MS 15:39
PROVIDERS: ADMIT Colon & Rectal Surgery; ATTEND Colon & Rectal Surgery
PROC: 0DH673Z Insertion of Infusion Device into Stomach, Via Natural or Artificial Opening (ICD-10-PCS; principal; 2023-05-04)
DX: K56.699 Other intestinal obstruction unspecified as to partial versus complete obstruction (principal); N17.9 Acute kidney failure, unspecified; E86.0 Dehydration; D64.9 Anemia, unspecified; K59.00 Constipation, unspecified; I10 Essential (primary) hypertension; E78.00 Pure hypercholesterolemia, unspecified; G25.81 Restless legs syndrome; N81.4 Uterovaginal prolapse, unspecified; K44.9 Diaphragmatic hernia without obstruction or gangrene; Z90.49 Acquired absence of other specified parts of digestive tract; Z90.710 Acquired absence of both cervix and uterus; Z98.890 Other specified postprocedural states; Z88.5 Allergy status to narcotic agent; Z79.899 Other long term (current) drug therapy; Z85.3 Personal history of malignant neoplasm of breast; Z86.19 Personal history of other infectious and parasitic diseases
CPT/HCPCS: 36415; 71045; 74177; 74250; 80048; 80053; 83690; 83735; 84100; 85025; 93005; 93010; 94762; 96361; 96375; 99285 25; A9270; C9113; J0780; J1170; J1650; J2060; J2405; J3010; J3475; J7030; J7121; Q9967

== ENCOUNTER 2024-07-08 16:21 | Inpatient (IN) | payer MEDICARE, OTHER ==
[~2024-07-08] VITALS: Ht 157.5 cm; Wt 70.1 kg
[2024-07-08] MEDS ORDERED: ASPIRIN 81 MG CHEW PO ONE (16:30)
[2024-07-08] MEDS ORDERED: OXYCODONE HCL5 MG PO (16:31)
[2024-07-08 16:43] LABS: HEMATOCRIT 39.3 % (35.0-50.0); HEMOGLOBIN 13.4 g/dL (12.0-18.0); MCH 30.3 (27-36); MCHC 34.1 g/dl (30-36); MCV 88.7 fl (81-99); PLATELET COUNT 211 K/uL (140-440); RBC 4.43 M/ul (4.3-5.7); RDW 13.9 (10.5-15.0)
[2024-07-08 17:02] LABS: ALBUMIN 3.3 g/dL (3.4-5.0); ALBUMIN/GLOBULIN RATIO 0.92 (1.1-2.4); ANION GAP 12.4 (7-21); BILIRUBIN, TOTAL 0.6 ng/dL (0.2-1.0); BUN/CREATININE RATIO 17.02 (6.0-28.6); CALCIUM 8.5 mg/dL (8.5-10.1); CREATININE, SERUM 0.94 mg/dL (0.55-1.02); MAGNESIUM 1.5 mg/dL (1.8-2.4); POTASSIUM 3.4 mmol/L (3.5-5.1); PROTEIN, TOTAL 6.9 g/dL (6.4-8.2)
[2024-07-08 17:07] LABS: INR 1.04 (0.80-1.30); PROTIME 13.3 Sec (11.2-14.2)
[2024-07-08 17:09] LABS: EOSINOPHILS, MANUAL DIFF 2; LYMPHOCYTES, MANUAL DIFF 14; MONOCYTES, MANUAL DIFF 13; NEUTROPHILS, MANUAL DIFF 71
[2024-07-08 17:40] LABS: BILIRUBIN, URINE NEGATIVE (negative); BLOOD/HGB, URINE TRACE-I (Negative); KETONE, URINE NEGATIVE (Negative); LEUK ESTERASE, URINE MODERATE (negative); NITRITE, URINE NEGATIVE (negative)
[2024-07-08] MEDS ORDERED: SODIUM CHLORIDE 0.9% 1,000 ML IV ONE (17:45)
[2024-07-08] MEDS ORDERED: PANTOPRAZOLE SODIUM 40 MG/10 ML VIAL IV ONE (17:45)
[2024-07-08] MEDS ORDERED: ondansetron HCL 4 MG/2 ML VIAL IV ONE (17:45)
[2024-07-08] MEDS ORDERED: fentaNYL citrate 100 MCG/2 ML VIAL IV ONE (17:45)
[2024-07-08 17:49] LABS: BACTERIA, URINE 1+ /hpf (negative); CASTS, URINE NONE SEEN \\lpf; COLLECTION TYPE, URINE CLEAN CATCH; CRYSTALS, URINE NONE SEEN (0-1+); RED BLOOD CELLS, URINE 0-1 /hpf (0-5); REFLEX CULTURE, URINE Yes (No)
[2024-07-08] MEDS ORDERED: CEFTRIAXONE/SODIUM CHLORIDE 1 GM/100 ML PIGGYBACK IV ONE ×2 (19:00→21:45)
[2024-07-08] MEDS ORDERED: LACTATED RINGER'S 1,000 ML IV SCH ×2 (19:00→20:45)
[2024-07-08] MEDS ORDERED: D5W 1/2 NS + 20 KCL 1,000 ML IV SCH (19:30)
[2024-07-08] MEDS ORDERED: ondansetron HCL 4 MG/2 ML VIAL IV PRN ×2 (19:30→20:45)
[2024-07-08] MEDS ORDERED: HYDROmorphone HCL 1 MG/ML SYR IV PRN (19:30)
[2024-07-08 20:24] VITALS: BP 119/62
--- NOTE | 2024-07-08 20:25 | NUR ---
REPORT FROM ED RN KEYA. PT ALERT AND ORIENTATED, ABLE TO GET SELF FROM STRETCHER TO BED INDEPENDENTLY. VS AND ADMISSION STARTED.
[2024-07-08] MEDS ORDERED: KETOROLAC TROMETHAMINE 30 MG/ML VIAL IV PRN (20:45)
--- NOTE | 2024-07-08 20:50 | NUR ---
DR BURKETT HERE, DISCUSSING POC, MEDICATIONS AND DISEASE PROCESS. ORDERS TO BE WROTE.
[2024-07-08] MEDS ORDERED: PRAMIPEXOLE DIHYDROCHLORIDE 1 MG TAB PO SCH (21:00)
[2024-07-08] MEDS ORDERED: FAMOTIDINE 20 MG/ 2 ML VIAL IV SCH (21:00)
[2024-07-08] MEDS ORDERED: OXYCODONE HCL 5 MG TAB PO SCH (21:00)
[2024-07-08] MEDS ORDERED: CEFTRIAXONE/SODIUM CHLORIDE 100 ML IV ONE (21:30)
[2024-07-08] MEDS ORDERED: KETOROLAC TROMETHAMINE 15 MG/ML VIAL IV PRN (21:45)
--- NOTE | 2024-07-08 21:54 | NUR ---
Awake, alert and oriented , Cooperative with vitals and admit questins and assessments. tolerating clear liquids well. IV BAX infusing RA. On room air, clear lungs, abd tender, ARAM, LBM today. independent in room w SBA due to IVF. alert and oriented
[2024-07-08 21:57] VITALS: BP 119/62
[2024-07-08] MEDS ORDERED: ACETAMINOPHEN 500 MG TAB PO SCH (22:00)
--- NOTE | 2024-07-08 22:46 | NUR ---
UP TO BRP WITH SBA, IV ABX INFUSING, TOLERATING WELL, MEDICATED WITH OXYCONTIN 5MG PO AT THIS TIME 05/16 ABD PAIN, RECEIVED TYLENOL SCHEDULED EARLIER. TOLERATING LIQUIDS WELL. BACK TO BED, TOLERATED WELL.
--- NOTE | 2024-07-08 23:51 | NUR ---
RESTING, EYES CLOSED, NO S/SX ABD PAIN, DISTRESS OR ADVERSE REACTUN TO IV ABX AT THIS TIME. IVF INFUSING.
[2024-07-09] VITALS (9 sets, daily range): BP systolic 96–124; BP diastolic 49–65
--- NOTE | 2024-07-09 00:15 | NUR ---
UP TO BRP WITH ASSIST, VOIDED, BACK TO BED, TOLERATED WELL. IVF INFUSING. ON ROOM AIR, C/O BEING DIAPHORETIC, ROOM TEMP WAS 75F, DECREASED TO 70, SKIN DRIED WITH TOWELS, AND GOWN CHANGED
--- NOTE | 2024-07-09 01:46 | NUR ---
Awake, c/o milf anxiety and sore throat and pain. Medicated with Toradol per c/o 05/16 abd pain, no c/o n/v. IVF infusing. Reassured. extra pillows given, Cooperative with second assessment
--- NOTE | 2024-07-09 03:23 | NUR ---
PATIENT CALLED TO USE THE BATHROOM WITH MINIMAL ASSIST. PATIENT IS STABLE ON HER FEET. PATIENT VOIDED 250ML DARK URINE. PATIENT IS BACK IN BED AND LAYING ON HER RIGHT SIDE WITH PILLOW IN BETWEEN KNEES AND ON HER BACK. CALL LIGHT WITHIN REACH.
--- NOTE | 2024-07-09 04:12 | NUR ---
used call light, up to BRP, voided, back to bed, toleratd well, IVF infusing
[2024-07-09 05:41] LABS: BASOPHILS 0.6 % (0-2); EOSINOPHILS 2.4 % (0-6); HEMATOCRIT 35.1 % (35.0-50.0); HEMOGLOBIN 11.8 g/dL (12.0-18.0); LYMPHOCYTES 20.4 % (24-44); MCH 30.2 (27-36); MCHC 33.6 g/dl (30-36); MCV 89.9 fl (81-99); MONOCYTES 15.6 % (0-12); PLATELET COUNT 185 K/uL (140-440); RBC 3.91 M/ul (4.3-5.7)
[2024-07-09 06:06] LABS: ALBUMIN 2.6 g/dL (3.4-5.0); ALBUMIN/GLOBULIN RATIO 0.79 (1.1-2.4); ANION GAP 12.6 (7-21); BILIRUBIN, TOTAL 0.4 ng/dL (0.2-1.0); BUN/CREATININE RATIO 14.13 (6.0-28.6); CALCIUM 8.1 mg/dL (8.5-10.1); CREATININE, SERUM 0.92 mg/dL (0.55-1.02); POTASSIUM 3.6 mmol/L (3.5-5.1); PROTEIN, TOTAL 5.9 g/dL (6.4-8.2)
--- NOTE | 2024-07-09 06:45 | NUR ---
awake, has slept off and on this shift, semiindependent in room. IVF infusing. medicated with scheduled Tylenol per 7/10 abd pain and with Zofran 8mg IV per c/o nauseated
--- NOTE | 2024-07-09 07:28 | NUR ---
SHIFT REPORT RECIEVED FROM VON WHITTAKER. PT RETURNING TO BED FROM BATHROOM. TANK PARKER IN ROOM ASSISTING. CALL LIGHT IN REACH. DENIES FURTHER NEEDS.
--- NOTE | 2024-07-09 07:45 | NUR ---
PATIENT UP TO CHAIR, SBA. AM CARE DONE. CALL LIGHT IN REACH. NO FURHTER NEEDS AT THIS TIME,
--- NOTE | 2024-07-09 08:55 | NUR ---
medications reconciled
[2024-07-09] MEDS ORDERED: CEFTRIAXONE/SODIUM CHLORIDE 2 GM/100 ML PIGGYBACK IV SCH (09:00)
--- NOTE | 2024-07-09 10:14 | NUR ---
MORNING ASSESSMENT COMPLETE. PT IS AWAKE IN BED, AT BEDSIDE. MINOR DISCOMORT IN THE ABD, TOLERABLE. DENIES NEEDS AT THIS TIME. CALL LIGHT IN REACH.
--- NOTE | 2024-07-09 10:29 | NUR ---
PATIENT SITTING UP IN BED AT THIS TIME, FAMILY IN ROOM. VITALS AND I&O'S DONE AND CHARTED. CALL LIGHT IN REACH. NO FURTHER NEEDS AT THIS TIME.
--- NOTE | 2024-07-09 12:00 | NUR ---
pt reports nausea prn medication administered (per emar).
--- NOTE | 2024-07-09 13:43 | NUR ---
PATIENT IN BED RESTING AT THIS TIME, VISITOR IN ROOM. PATIENT UP TO BATHROOM AND BACK TO BED, IND. VITALS AND I&O'S DONE AND CHARTED. CALL LIGHT IN REACH. NO FURTHER NEEDS AT THIS TIME.
--- NOTE | 2024-07-09 14:10 | NUR ---
PT BACK FROM BATHROOM IN RECLINER. PT REQUESTED BED TO BE MADE AND STRAIGHTENED. THIS RN IN ROOM ASSISTING PER REQUEST. PT GIVEN PUDDING WITH TYLENOL. PT STATES FEELS BETTER.
[2024-07-09] MEDS ORDERED: PRAMIPEXOLE DIHYDROCHLORIDE 0.5 MG TAB PO SCH (17:00)
[2024-07-09] MEDS ORDERED: AMOXICILLIN/CLAVULANATE K 500 MG TAB PO SCH (17:00)
--- NOTE | 2024-07-09 19:05 | NUR ---
REPORT RECEIVED FROM BERT LONGORIA. pt C/O NAUSEA. PRN ANTINAUSEA MEDICATION ADMINISTERED. NO OTHER NEEDS AT THIS TIME. BOARD UPDATED. CALL LIGHT WITHIN REACH.
[2024-07-09] MEDS ORDERED: OXYCODONE HCL 5 MG TAB PO SCH (20:00)
--- NOTE | 2024-07-09 20:25 | NUR ---
ASSESSMENT AND VITAL SIGNS DONE. pt DENIES ANY PAIN AT THIS TIME. PRN AND SCHEDULED MEDICATION ADMINISTERED. IV ASSESSED, WNL. IV FLUIDS INFUSING PER ORDER, SEE MAR. BOWEL TONES ACTIVE. pt STATES HER STOMACH HURTS WHEN SHE IS UP AND WALKING. BUT OTHER HAMMER NO OTHER COMPLAINTS. pt STATES SHE HAD A SM BM. pt DENIES ANY OTHER NEEDS AT THIS TIME. WATER REFRESHED. CALL LIGHT WITHIN REACH.
[2024-07-09] MEDS ORDERED: FAMOTIDINE 20 MG TAB PO SCH (21:00)
[2024-07-09] MEDS ORDERED: PRAMIPEXOLE DIHYDROCHLORIDE 1 MG TAB PO SCH (21:00)
--- NOTE | 2024-07-09 22:22 | NUR ---
pt UP TO THE BATHROOM, SBA. SCHEDULED MADICATION ADMINISTERED. pt BACK TO BED. pt DENIES ANY OTHER NEEDS AT THIS TIME. CALL LIGHT WITHIN REACH.
--- NOTE | 2024-07-10 00:09 | NUR ---
pt RESTING IN THE BED WITH EYES CLOSED. RR EVEN AND UNLABORED. CALL LIGHT WITHIN REACH.
--- NOTE | 2024-07-10 02:11 | NUR ---
pt RESTING IN THE BED. pt DENIES ANY NEEDS A THIS TIME. CALL LIGHT WITHIN REACH.
--- NOTE | 2024-07-10 04:14 | NUR ---
pt UP TO THE BR. INDEPENDENT IN THE RM. pt DENIES ANY NEEDS AT THIS TIME. CALL LIGHT WITHIN REACH.
[2024-07-10 04:31] VITALS: BP 115/80
[2024-07-10 05:12] VITALS: BP 115/80
[2024-07-10 05:23] LABS: BASOPHILS 0.6 % (0-2); EOSINOPHILS 2.4 % (0-6); HEMATOCRIT 35.9 % (35.0-50.0); LYMPHOCYTES 24.6 % (24-44); MCHC 33.4 g/dl (30-36); MONOCYTES 11.8 % (0-12); NEUTROPHILS 60.6 % (39-80); PLATELET COUNT 187 K/uL (140-440); RBC 3.98 M/ul (4.3-5.7); RDW 13.9 (10.5-15.0)
--- NOTE | 2024-07-10 06:05 | NUR ---
ASSESSMENT DONE. pt UP IN RM, INDEPENDENT IN THE RM. NO OTHER NEEDS A THIS TIME. SCHEDULED MEDICATION ADMINISTERED, SEE MAR. CALL LIGHT WITHIN REACH.
--- NOTE | 2024-07-10 07:15 | NUR ---
RECIEVED SHIFT REPORT. PT WAS WALKING FROM THE BATHROOM. INVENTORY COORDINATOR IN ROOM TO ASSIST. CALL LIGHT IN REACH. DENIES NEEDS.
--- NOTE | 2024-07-10 07:37 | NUR ---
Patient appears to be in a good mood, she was sitting in recliner. Patient ask for a Sandra Tali, it was given and her linens were changed. No further request from patient at this time
[2024-07-10] MEDS ORDERED: metroNIDAZOLE 250 MG TAB PO SCH ×3 (08:00→12:00)
--- NOTE | 2024-07-10 08:09 | NUR ---
MORNING ASSESSMENT COMPLETE. PT AWAKE IN BED. DENIES PAIN AT REST, INCREASES WITH MOVEMENT. NO CHANGES WITH ASSESSMENT. DENIES NEEDS. CALL LIGHT WITHIN REACH.
[2024-07-10 08:32] VITALS: BP 11/74
[2024-07-10] MEDS ORDERED: PRAMIPEXOLE DIHYDROCHLORIDE 0.5 MG TAB PO SCH (09:00)
[2024-07-10] MEDS ORDERED: FAMOTIDINE 20 MG TAB PO SCH (09:00)
[2024-07-10] MEDS ORDERED: PRAMIPEXOLE DIHYDROCHLORIDE 1 MG TAB PO SCH (09:00)
--- NOTE | 2024-07-10 09:00 | NUR ---
Spoke with Christina. She states she lives in a one story home without steps. She lives with her spouse. She does not use any DME. States she occassionaly has Diverticulitis and UTIs. Was not aware of her UTI this admission. Pt wants to go home as she has a wedding to attend. She denies any needs and her spouse will assist her as needed. Pt waiting to speak with Dr. Blas for discharge.
--- NOTE | 2024-07-10 09:16 | NUR ---
UR CLINICAL REVIEW: 2 MN FOR VERSALUS-MEET INPT CRITERIA MEDICARE INPT 07/08/24 @ 1922 ORDER MATCHES REG NO AUTH REQUIRED PER MEDICARE GUIDELINES DISCHARGE TO HOME TODAY
[2024-07-10] MEDS ORDERED: AMOX TR-K CLV1 EACH PO (09:34)
[2024-07-10] MEDS ORDERED: METRONIDAZOLE250 MG PO (09:35)
--- NOTE | 2024-07-10 13:15 | EKG ---
[facility] [address] [facility] [place] [address] Signed Normal sinus rhythm Normal ECG When compared with ECG of 05-MAY-2023 02:32, Vent. rate has increased BY 37 BPM Confirmed by Erick Herrera MD ([id number]) on 07/10/2024 1:15:06 PM Electronically Signed By: ERICK HERRERA 07/10/24 1315 PATIENT NAME: ALAN BRICEÑO Electrocardiogram DATE OF : 42 PHYSICIAN: ERICK HERRERA REPORT #: [id number] REPORT IS CONFIDENTIAL AND NOT TO BE RELEASED WITHOUT AUTHORIZATION
--- NOTE | 2024-07-10 16:49 | DS ---
[facility] [address] [place], [place] [address] Signed ADMISSION DATE: 07/08/2024 DISCHARGE DATE: 07/10/2024 REASON FOR ADMISSION: Acute diverticulitis. HISTORY OF PRESENT ILLNESS: This 83-year-old white woman is known to me from the past. 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 She has been free of that problem since. She presented to emergency room with left lower abdominal pain, was evaluated by Dr. Yang, emergency room physician and considered likely of diverticulitis. A CT scan performed confirmed a phlegmon of the sigmoid, consistent with acute sigmoid diverticulitis. There was no sign of well formed abscess. LABORATORY DATA: White count was 11.7. She is admitted for further evaluation and care. PERTINENT PHYSICAL EXAMINATION: GENERAL: Showed a pleasant white woman, who did not look systemically toxic. Trachea is midline. CHEST: Clear. HEART: Regular without murmur. ABDOMEN: Nondistended. There is mild tenderness to left lower quadrant. No sign of mass. No ascites. LABORATORY DATA: Lab studies showed white count 11.7, hematocrit 39.3, platelets 211,000. Electrolytes normal. Liver enzymes normal. INR is 1.04. HOSPITAL COURSE: She was admitted and given intravenous antibiotics including Flagyl and ceftriaxone. Mindful of her C difficile problems from the past, avoidance of excessive antibiotics was considered primary. She had quick response to symptom control and was advanced from a clear liquid diet to a low-fiber diet. By time of discharge, she has no tenderness, no mass and tolerating ampicillin (Augmentin) and Flagyl orally. She will be sent with a five day course of antibiotics at discharge. She was advised to maintain a low-fiber diet. Electronically Signed By: KRISH BURKETT MD 07/10/24 1649 PATIENT NAME: ALAN BRICEÑO DISCHARGE SUMMARY DATE OF : 42 REPORT #: [id number] PHYSICIAN: KRISH BURKETT MD PCP: KELSEY MCKOY MD REPORT IS CONFIDENTIAL AND NOT TO BE RELEASED WITHOUT AUTHORIZATION [facility] [address] [place], [place] [address] Signed She will return to see me in approximately 4-6 weeks in the office setting. Her last colonoscopy was in 2020, which showed diverticulosis. It was additionally noted that she does have an anal sphincter stimulator device which was placed at least five years ago for anal incontinence, which has been quite functional and working very well. It is additionally noted that she takes oxycodone on a routine basis and has for quite some time for chronic pain problems. DISCHARGE MEDICATIONS: 1. Augmentin 500/125 one p.o. b.i.d. #10, no refill. 2. Flagyl 250 mg p.o. t.i.d. with meals #15, no refill. She will continue usual medications of Mirapex 0.5 mg in the morning and in the evening for restless legs syndrome and oxycodone 5 mg tablets b.i.d. for moderate to severe pain. She will return to the ongoing care for usual and routine care to Dr. Mckoy as well. Krish Burkett MD JM/MODL /[id number] cc: Dr. Christopher Yang [facility] Copies: ~ Electronically Signed By: KRISH BURKETT MD 07/10/24 1649 PATIENT NAME: ALAN BRICEÑO DISCHARGE SUMMARY DATE OF : 42 REPORT #: [id number] PHYSICIAN: KRISH BURKETT MD PCP: KELSEY MCKOY MD REPORT IS CONFIDENTIAL AND NOT TO BE RELEASED WITHOUT AUTHORIZATION
--- NOTE | 2024-07-10 16:49 | HP ---
[facility] [address] [place], [place] [address] Signed ADMISSION DATE: 07/08/2024 REASON FOR ADMISSION: Recurrent acute sigmoid diverticulitis, concurrent urinary tract infection. HISTORY OF PRESENT ILLNESS: This 83-year-old white woman is well-known to me from the past. She presented to the emergency room with several days of increasing left lower abdominal pain. She says she is no longer able to eat. She has had some chills at home previously. She was thoroughly evaluated by Dr. Yang, emergency room physician at [facility] and found to have likely acute diverticulitis. A CT scan was performed confirming a phlegmon of the sigmoid, highly consistent with acute sigmoid diverticulitis. There was no well-formed abscess that could be seen. Chest x-ray was considered normal. Findings included a white count of only 11.7 and a Chem profile, which was normal. Her creatinine is 0.94. The urinalysis did show a trace of urine nitrite, moderate leukocyte esterase, white cells 12-20, epithelial cells 1+. The patient denies any pneumaturia. The patient has had hysterectomy in the past, but has not had appendectomy. PAST MEDICAL HISTORY: Notable for opiate dependency for which she takes oxycodone mg p.o. b.i.d. as well as pramipexole for restless legs. Codeine associated with paranoia and morphine gives "psychosis." PAST SURGICAL HISTORY: Includes cholecystectomy with hysterectomy as described, lumpectomy for breast cancer in the past. She has not smoked and denies any other medical problems currently. SOCIAL HISTORY: She is . Her son works as a respiratory therapist at [facility] ([employer]). REVIEW OF SYSTEMS: She denies any shortness of breath or chest pain. Her previous chills have abated over the past day or so. She denies any dysuria or hematuria. Electronically Signed By: KRISH BURKETT MD 07/10/24 1649 PATIENT NAME: ALAN BRICEÑO HISTORY AND PHYSICAL DATE OF : 42 REPORT #: [id number] PHYSICIAN: KRISH BURKETT MD PCP: KELSEY MCKOY MD REPORT IS CONFIDENTIAL AND NOT TO BE RELEASED WITHOUT AUTHORIZATION [facility] [address] [place], [place] [address] Signed PHYSICAL EXAMINATION: GENERAL: Pleasant white woman who looks to be in no acute distress actually. VITAL SIGNS: Height is 5 feet 2 inches, weight 70.1 kg with BMI of 28.3. NECK: Trachea is midline. CHEST: Clear. HEART: Regular without murmur. ABDOMEN: Nondistended. There is mild tenderness in the left lower quadrant. No sign of tenderness in the right lower quadrant. No ascites. EXTREMITIES: Show no clubbing, cyanosis, or edema. LABORATORY STUDIES: Show white count 11.7, hematocrit 39.3, platelets 211,000. Electrolytes are normal. Creatinine 0.94. Liver enzymes normal. BNP . INR is 1.04. CT scan was reviewed in detail as previously noted. Of special note, the patient does have a distant history of recurrent C difficile for which she underwent a fecal transplant therapy at the [facility] in [place]. Social history she is previously and . She has an adult son as noted. ASSESSMENT: The patient has what appears to be acute sigmoid diverticulitis and this appears to be recurrent. I see no drainable fluid collection. Her tenderness is mild in relative to recurrence, but she has been unable to eat related to the abdominal process. She does have a concurrent urinary tract infection. She has no clinical symptoms or signs to suggest a colovesical fistula, though that is always a consideration particularly since she has had history of hysterectomy. She is admitted at this time for IV antibiotic therapy. We will allow clear liquids and of course her maintenance medications. As she does have restless legs syndrome, we will additionally initiate her usual medications of pramipexole for that. The patient requested she be discharged before ; she has a wedding. She wishes to attend. It is likely that will be possible, of course. MD JAMI Fields/ARLENL /[id number] Electronically Signed By: KRISH BURKETT MD 07/10/24 1649 PATIENT NAME: ALAN BRICEÑO HISTORY AND PHYSICAL DATE OF : 42 REPORT #: [id number] PHYSICIAN: KRISH BURKETT MD PCP: KELSEY MCKOY MD REPORT IS CONFIDENTIAL AND NOT TO BE RELEASED WITHOUT AUTHORIZATION [address] [address] Signed cc: DR. Christopher Scruggs Copies: ~ Electronically Signed By: KRISH BURKETT MD 07/10/24 1649 PATIENT NAME: ALAN BRICEÑO ANN HISTORY AND PHYSICAL DATE OF : 42 REPORT #: [id number] PHYSICIAN: KRISH BURKETT MD PCP: KELSEY MCKOY MD REPORT IS CONFIDENTIAL AND NOT TO BE RELEASED WITHOUT AUTHORIZATION
== END 2024-07-10 10:35 | disposition home or self-care (01) | DRG 392 ==
LOC: ED 16:21 → MS 19:22
PROVIDERS: Emergency Medicine; ADMIT Surgery; ATTEND Surgery
DX: K57.32 Diverticulitis of large intestine without perforation or abscess without bleeding (principal); N39.0 Urinary tract infection, site not specified; F11.20 Opioid dependence, uncomplicated; A04.72 Enterocolitis due to Clostridium difficile, not specified as recurrent; E78.00 Pure hypercholesterolemia, unspecified; I10 Essential (primary) hypertension; Z90.49 Acquired absence of other specified parts of digestive tract; Z90.710 Acquired absence of both cervix and uterus; Z85.3 Personal history of malignant neoplasm of breast; Z90.10 Acquired absence of unspecified breast and nipple; G25.81 Restless legs syndrome; Z88.5 Allergy status to narcotic agent
CPT/HCPCS: 36415; 71045; 74176; 80053; 81001; 83690; 83735; 83880; 84484; 85025; 85610; 85730; 87088; 93005; 93010; A9270; J0696; J1885; J2405; J2470; J3010; J7030; J7121

== ENCOUNTER 2024-09-14 07:14 | Inpatient (IN) | payer MEDICARE, OTHER ==
[~2024-09-14] VITALS: Ht 157.5 cm; Wt 68.7 kg
[~2024-09-14 07:14] MED LIST changes: +AMOX TR-K CLV1 EACH PO; +METRONIDAZOLE250 MG PO; +OXYCODONE HCL5 MG PO
[2024-09-14] MEDS ORDERED: ondansetron HCL 4 MG/2 ML VIAL IV ONE (08:00)
[2024-09-14] MEDS ORDERED: HYDROmorphone HCL 1 MG/ML SYR IV PRN ×2 (08:00→10:30)
[2024-09-14] MEDS ORDERED: SODIUM CHLORIDE 0.9% 500 ML IV PRN (08:00)
[2024-09-14 08:05] LABS: ALBUMIN/GLOBULIN RATIO 0.71 (1.1-2.4); ANION GAP 14.5 (7-21); BILIRUBIN, TOTAL 0.6 ng/dL (0.2-1.0); BUN/CREATININE RATIO 24.17 (6.0-28.6); CALCIUM 8.9 mg/dL (8.5-10.1); CREATININE, SERUM 0.91 mg/dL (0.55-1.02); POTASSIUM 3.5 mmol/L (3.5-5.1); PROTEIN, TOTAL 7.2 g/dL (6.4-8.2)
[2024-09-14 08:06] LABS: BASOPHILS 0.5 % (0-2); EOSINOPHILS 0.6 % (0-6); HEMATOCRIT 42.5 % (35.0-50.0); HEMOGLOBIN 14.4 g/dL (12.0-18.0); LYMPHOCYTES 7.9 % (24-44); MCH 30.5 (27-36); MCV 89.7 fl (81-99); MONOCYTES 7.4 % (0-12); NEUTROPHILS 83.6 % (39-80); PLATELET COUNT 258 K/uL (140-440); RBC 4.73 M/ul (4.3-5.7); RDW 15.9 (10.5-15.0)
[2024-09-14 08:43] LABS: BILIRUBIN, URINE NEGATIVE (negative); BLOOD/HGB, URINE TRACE-I (Negative); KETONE, URINE NEGATIVE (Negative); LEUK ESTERASE, URINE TRACE (negative); NITRITE, URINE NEGATIVE (negative)
[2024-09-14 08:53] LABS: RED BLOOD CELLS, URINE 0-1 /hpf (0-5)
[2024-09-14 08:54] LABS: BACTERIA, URINE NONE SEEN /hpf (negative); CASTS, URINE NONE SEEN \\lpf; COLLECTION TYPE, URINE CLEAN CATCH; CRYSTALS, URINE NONE SEEN (0-1+); EPITHELIAL CELLS, URINE OCCASIONAL /lpf (0-1+); REFLEX CULTURE, URINE No (No)
[2024-09-14] MEDS ORDERED: metroNIDAZOLE/SODIUM CHLORIDE 500 MG/100 ML PIGGYBACK IV ONE (09:45)
[2024-09-14] MEDS ORDERED: CEFTRIAXONE/SODIUM CHLORIDE 1 GM/100 ML PIGGYBACK IV ONE (09:45)
[2024-09-14 11:44] VITALS: BP 141/66
[2024-09-14] MEDS ORDERED: ACETAMINOPHEN 325 MG TAB PO PRN (11:45)
[2024-09-14] MEDS ORDERED: ondansetron HCL 4 MG/2 ML VIAL IV PRN (11:45)
[2024-09-14] MEDS ORDERED: LACTATED RINGER'S 1,000 ML IV SCH (11:45)
--- NOTE | 2024-09-14 11:45 | NUR ---
REPORT RECEIVED FROM VON AYALA. pt ARRIVES VIA , AMBULATORY TO RESTROOM FOR VOID AND BACK TO BED. VSS. pt DENIES PAIN AT THIS TIME. ALERT AND ORIENTED, STATES "I JUST FEEL HIGH FROM THE MEDS". RESTING IN BED WITH IVF INFUSING WNL. CALL LIGHT AND PERSONAL SUPPLIES IN REACH.
[2024-09-14] MEDS ORDERED: PHARMACY RENAL DOSE ADJUSTMENT 1 DOSE MISC PO SCH (12:00)
[2024-09-14] MEDS ORDERED: metroNIDAZOLE 250 MG TAB PO SCH (12:00)
[2024-09-14] MEDS ORDERED: MULTI VITAMIN1 EACH PO (12:16)
--- NOTE | 2024-09-14 12:44 | NUR ---
IN ROOM FOR PO ANTIBIOTIC ADMINISTRATION. pt COMPLAINS OF 6/10 BOYCE, PRN TYLENOL ADMINISTERED WITH SIP OF WATER. pt ASSESSMENT COMPLETE. pt STATES SOME LOWER ABD PAIN, ABOUT 5-6/10 "ITS A REAL WEIRD PAIN" DOES NOT FURTHER DESCRIBE. IVF INFUSING WNL. pt HAS CALL LIGHT AND PERSONAL SUPPLIES IN REACH.
--- NOTE | 2024-09-14 13:25 | NUR ---
MED REC COMPLETE
--- NOTE | 2024-09-14 13:39 | NUR ---
PATIENT UP TO BATHROOM TO VOID. INDEPENDENTLY WITH ASSISTANCE FROM RN WITH IV POLE. PATIENT TO CALL WHEN FINISHED
[2024-09-14] MEDS ORDERED: PRAMIPEXOLE DIHYDROCHLORIDE 0.5 MG TAB PO PRN (13:45)
--- NOTE | 2024-09-14 14:05 | NUR ---
Pt report received from VON Mendez. Pt is A&O, resting in bed with hob elevated, hot packs to abdomen, reports pain in abdomen 6 out of 10. Pt states she is comfortable being independent in the room, if allowed. Call light in reach.
[2024-09-14 14:06] VITALS: BP 110/55
--- NOTE | 2024-09-14 14:38 | NUR ---
RN in room. Informed patient they are now on clear liquids.
--- NOTE | 2024-09-14 15:20 | NUR ---
Pt's son to nurse's station requesting to know when the last time it was that the pt received pain medication and stated that she will "not let the nurses know when she is hurting". In with pt for PRN IV pain med administration, pt rates her pain 6 out of 10 in her abdomen and back. Pt also medicated with PRN zofran per emar for nausea with IV pain meds. Pt denies further needs at this time. Pt's son in room with pt. Encouraged pt to use the call light to ask for help if she feels dizzy, weak, lightheaded, when ambulating about her room, pt and pt's son verbalized understanding.
--- NOTE | 2024-09-14 15:35 | NUR ---
Spoke with pt and son. Pt denies all needs and answer all my questions for CM before I can ask. She does not use any DME, does not have issues getting into her house. She is safe at home, she does not have any financial issues. She c/o of pain. She will not need anything on discharge.
--- NOTE | 2024-09-14 16:29 | NUR ---
UR CLINICAL REVIEW: 2 MN CHUCHO- MEETS INPT MEDICARE INPT 09/14/24 @ 1011 ORDER MATCHES REG NO AUTH REQUIRED PER MEDICARE RULES PLAN TO DC TO HOME WHEN STABLE.
[2024-09-14 17:43] VITALS: BP 126/64
--- NOTE | 2024-09-14 18:46 | NUR ---
in room. Patient called asking for a heat pack. Dinner tray was removed. No other cares were requested.
[2024-09-14 18:52] VITALS: BP 126/64
--- NOTE | 2024-09-14 20:02 | NUR ---
PT SITTING ON SIDE OF BED, IV ALARMING, NEW BAG OF FLUID HUNG AND INFUSING WELL, PT REQUESTING NIGHT TIME MEDS, PLAN TO NOTIFIY PRIMARY RN.
[2024-09-14 21:01] VITALS: BP 118/66
[2024-09-14 21:28] VITALS: BP 118/66
--- NOTE | 2024-09-14 22:44 | NUR ---
PC to Dr. Grubbs as pt is requesting medication for sleep, as well as her home pain medication. Dr. Grubbs advised he will change her pain meds and order melatonin as well.
[2024-09-14] MEDS ORDERED: MELATONIN 3 MG TAB PO SCH (22:46)
[2024-09-14] MEDS ORDERED: OXYCODONE HCL 5 MG TAB PO PRN (23:00)
[2024-09-15] VITALS (9 sets, daily range): BP systolic 115–124; BP diastolic 39–66
--- NOTE | 2024-09-15 01:42 | NUR ---
RECEIVED REPORT FROM BILLIE LONGORIA. PATIENT IS RESTING IN BED WITH EYES CLOSED, RR 16. CALL LIGHT IN REACH.
--- NOTE | 2024-09-15 03:08 | NUR ---
PATIENT IS RESTING IN BED WITH EYES CLOSED, RR 16. CALL LIGHT IN REACH.
--- NOTE | 2024-09-15 04:07 | NUR ---
PATIENT IS RESTING IN BED WITH EYES CLSOED, RR 15. CALL LIGHT IN REACH. IV INFUSING PER ORDER. NAD NOTED.
[2024-09-15 05:17] LABS: BASOPHILS 0.4 % (0-2); EOSINOPHILS 1.1 % (0-6); HEMATOCRIT 39.1 % (35.0-50.0); HEMOGLOBIN 13.2 g/dL (12.0-18.0); LYMPHOCYTES 14.3 % (24-44); MCH 30.5 (27-36); MCHC 33.7 g/dl (30-36); MCV 90.4 fl (81-99); MONOCYTES 10.3 % (0-12); NEUTROPHILS 73.9 % (39-80); PLATELET COUNT 228 K/uL (140-440); RBC 4.32 M/ul (4.3-5.7)
[2024-09-15 05:31] LABS: ANION GAP 9.2 (7-21); BUN/CREATININE RATIO 22.89 (6.0-28.6); CALCIUM 8.5 mg/dL (8.5-10.1); CREATININE, SERUM 0.83 mg/dL (0.55-1.02); MAGNESIUM 1.7 mg/dL (1.8-2.4); POTASSIUM 4.2 mmol/L (3.5-5.1)
--- NOTE | 2024-09-15 05:47 | NUR ---
PATIENTS VITALS TAKEN AND RECORDED. INTAKE AND OUTPUT RECORDED. PATIENTS IV INFUSING PER ORDER. PATIENT RATES PAIN AT A 5/10 IN HER LOW ABD, PRN MEDICATION GIVEN PER ORDER. PATIENT REPORTS NAUSEA, PRN NAUSEA MEDICATION GIVEN PER ORDER. PATIENT PROVIDED ОЛЬГА KATY AND FRESH ICE WATER. PATIENT DENIES ANY FURTHER NEEDS. HILLARY LIGHT IN REACH.
[2024-09-15] MEDS ORDERED: MAGNESIUM CHLORIDE 64 MG TABCR PO ONE (07:45)
--- NOTE | 2024-09-15 08:22 | NUR ---
Board has been updated and call light has been placed within reach, patient didnt want her breakfeast tray, Ensure given, No request at this time
--- NOTE | 2024-09-15 08:50 | NUR ---
PATIENT ALAN IS NOTED TO BE SITTING IN THE RECLINER WITH NO COMPLAINTS OF PAIN OR DISCOMFORT WHILE SHE IS AT REST. SHE STATES THAT SHE IS EAGER TO GO HOME ONCE HER ILLNESS IS RESOLVED. NEURO- ALERT AND ORIENTED X 4, MOVES ALL EXTREMITIES, DENIES PAIN, ENDORSES COMFORT AND REST. PERRL CARDIAC- AFEBRILE, NO EDEMA, PALPABLE RADIAL AND PEDAL PULSES RESP- RA, CLEAR BREATH SOUNDS THROUGHOUT, ABLE TO COUGH AND DEEP BREATH GI/- HYPERACTIVE BOWEL TONES, TENDERNESS WITH PALPATION, TOLERATING CLEAR LIQUID DIET INT- WDL, SEE ASSESSMENT
[2024-09-15] MEDS ORDERED: CEFTRIAXONE/SODIUM CHLORIDE 1 GM/100 ML PIGGYBACK IV SCH (09:00)
[2024-09-15] MEDS ORDERED: ENOXAPARIN SODIUM 40 MG/0.4 ML SYR SUB-Q SCH (09:00)
--- NOTE | 2024-09-15 10:53 | NUR ---
Patient is asleep in recliner chair. Another Ensure was given
--- NOTE | 2024-09-15 12:13 | NUR ---
HOURLY ROUNDING ON ALAN. SHE IS RESTING IN RECLINER WITH NO COMPLAINTS OF DISCOMFORT. MD MCKEON AT BEDSIDE TO DISCUSS PLAN OF CARE
--- NOTE | 2024-09-15 12:57 | NUR ---
PAIN 4/10 ENDORSED IN LEGS AND HEADACHE. ACETAMINOPHEN AND MIRAPEX BROUGHT INTO ROOM HOWEVER ALAN WAS INSISTENT THAT SHE RECEIVE 5MG OF OXYCODONE WELL. SHE EXPLAINED THAT OXYCODONE IS HER HOME REGIMENT. 5MG BROUGHT PER HER REQUEST. WILL REASSESS WHEN APPROPRIATE
--- NOTE | 2024-09-15 14:42 | CONS ---
[facility] [address] [place], [place] [address] Signed DATE OF CONSULTATION: 09/14/2024 REQUESTING PHYSICIAN: Dr. Girma Allen PROBLEM: Recurrent diverticulitis. HISTORY OF PRESENT ILLNESS: This 84-year-old white woman is known to me from the past. She presented to the emergency room at approximately 6 this morning and evaluated for left lower abdominal pain highly consistent with recurrent diverticulitis. She was hospitalized approximately two months ago under my direction on July 10, 2024 with acute diverticulitis. We are mindful of her prior history of C difficile with recurrence, ultimately requiring fecal transplant at [facility] in [place]. Her symptoms most recently began about a week ago while at a wedding out of town. She avoided high-fiber food when symptoms began but had progressive symptoms and presented to the emergency room last night and was evaluated thoroughly confirming clinical evidence of recurrent acute sigmoid diverticulitis. It is notable she underwent colonoscopy by me on September 15, 2021, four years ago nearly to the day where she was found to have diverticular changes sigmoid and left colon, a small polyp at 60 cm, a submucosal lipoma of the transverse colon and diminished anorectal sphincter tone. Perianal excoriation was noted at that time as well. Quite notably she does have a mechanical sphincter in place of the anal canal, so as to avoid incontinence episodes. The device is not used to stimulate bowel but rather to augment her control of incontinence. She remains a patient of Dr. Mckoy as an outpatient. Currently, her symptoms of left lower abdominal pain are significant but not associated with nausea or vomiting. has been undertaken under the direction of Dr. Allen of medications including ceftriaxone for the sigmoid diverticulitis and oral Flagyl to keep the possibility of recurrent C difficile colitis from occurring. REVIEW OF SYSTEMS: She denies any shortness of breath or chest pain. She has had no dysphagia, dysuria, hematemesis or blood per rectum. She does feel that she has a "fever" though she has Electronically Signed By: KRISH BURKETT MD 09/15/24 1442 PATIENT NAME: ALAN BRICEÑO CONSULTATION DATE OF : 42 REPORT #: [id number] PHYSICIAN: KRISH BURKETT MD PCP: KELSEY MCKOY MD REPORT IS CONFIDENTIAL AND NOT TO BE RELEASED WITHOUT AUTHORIZATION [facility] [address] [place] [id number] Signed never measured her temperature proper. She has had no night sweats. PHYSICAL EXAMINATION: GENERAL: Pleasant white woman who does not look systemically toxic. VITAL SIGNS: Temperature is 97.4, pulse 77, blood pressure 110/55. NECK: Trachea is midline. HEENT: Mucous membranes reasonably moist. CHEST: Clear. HEART: Regular without murmur. ABDOMEN: Nondistended and soft. There is minimal left lower abdominal tenderness. There is no ascites or mass. EXTREMITIES: Show no clubbing, cyanosis, or edema. LABORATORY STUDIES: At presentation showed a white count of 16.2, hematocrit 42.5. Chem profile essentially normal, glucose 162. Urinalysis showed trace of blood, otherwise normal; there are 2-3 white cells per high-power field and occasional epithelial cell seen. ASSESSMENT: The patient has had another bout of acute sigmoid diverticulitis based on clinical findings. Notably, a CT scan of the abdomen and pelvis was performed today, which described a segmental inflammatory change of the rectosigmoid with decreased pericolonic fluid and increased wall thickening consistent with acute diverticulitis. There is no sign of abscess or free air I agree fully with the approach taken at this time to include ceftriaxone as well as oral Flagyl. I think she could tolerate clear liquid diet for the time being, which she strongly desires. Despite her advanced age, there are occasions where sigmoid resection may be of great benefit in the setting of recurrent symptomatic diverticulitis. It is known that the diverticula can harbor residual colonies of C difficile and careful judicious and minimal use of antibiotics for control of recurrent episodes of diverticulitis would be appropriate so as to avoid secondary problem of C difficile inflammation. Discussed all this with the patient. PLAN: We will continue with IV medications to control her acute episode of diverticulitis, anticipating outpatient colonoscopy in the future. I believe she would tolerate a clear liquid diet without offending her situation of pain healing of the acute diverticulitis at this point. We will review this with Dr. Allen. Electronically Signed By: KRISH BURKETT MD 09/15/24 1442 PATIENT NAME: ALAN BRICEÑO CONSULTATION DATE OF : 42 REPORT #: [id number] PHYSICIAN: KRISH BURKETT MD PCP: KELSEY MCKOY MD REPORT IS CONFIDENTIAL AND NOT TO BE RELEASED WITHOUT AUTHORIZATION [facility] [address] [place] [id number] Signed MD JAMI Fields/ARLENL /[id number] cc: Dr. Allen Copies: ~ Electronically Signed By: KRISH BURKETT MD 09/15/24 1442 PATIENT NAME: ALAN BRICEÑO CONSULTATION DATE OF : 42 REPORT #: [id number] PHYSICIAN: KRISH BURKETT MD PCP: KELSEY MCKOY MD REPORT IS CONFIDENTIAL AND NOT TO BE RELEASED WITHOUT AUTHORIZATION
--- NOTE | 2024-09-15 15:43 | NUR ---
AMBULATING AROUND DEPARTMENT. INDEPENDENT. NO FURTHER NEEDS IDENTIFIED AT THIS TIME
--- NOTE | 2024-09-15 18:18 | NUR ---
Warm blanket, and ensure was given. No request from patient at this time. Call light has been placed within reach
--- NOTE | 2024-09-15 18:50 | NUR ---
ALAN IS BACK IN BED AFTER INDEPENDENT AMBULATION TO THE RESTROOM. SHE ENDORSES A SLIGHT HEADACHE BUT WISHES TO WAIT UNTIL HER NEXT DOSE OF OXYCODONE. SHE STATES THAT SHE BELIEVES HER HEADACHE IS DUE TO LACK OF SOLID FOODS FOR OVER 24HRS. DIET WAS RECENTLY ADVANCED TO SOLIDS FOR DINNER. LIGHTS WERE DIMMED AND DOOR CLOSED FOR COMFORT AND PATIENT REQUEST
--- NOTE | 2024-09-15 19:05 | NUR ---
NEURO- ALERT AND ORIENTED X 4, MOVES ALL EXTREMITIES, COMPLAINTS OF RLS AND HEADACHE, PERRL, ENDORSES FULL SENSATION, PRN ACETAMINOPHEN, OXYCODONE, MIRAPEX CARDIAC- AFEBRILE, NO EDEMA NOTED, PALPABLE RADIAL AND PEDAL PULSES RESP- RA, BREATH SOUNDS CLEAR, ABLE TO COUGH AND DEEP BREATH GI/- BLAND DIET, SMALL BLOOD CLOTS IN STOOL, MUCOUSY BM, VOIDS IN RESTROOM INT- SEE ASSESSMENT
--- NOTE | 2024-09-15 19:32 | NUR ---
PER REQUEST OF PRIMARY RN, PRN PAIN MEDICATION GIVEN FOR REPORTED LOWER ABD PAIN 6-7/10, SEE EMAR. pt AWAKE AND RESTING IN BED, DENIES ADDITIONAL NEEDS OR CONCERNS. CALL LIGHT IN REACH.
--- NOTE | 2024-09-15 19:59 | NUR ---
Patient sitting on the edge of bed. They reported feeling lower abdominal pain and general not feeling well. Some blood in urine. RN Savana notified.
--- NOTE | 2024-09-15 20:07 | NUR ---
PT SITTING UP IN CHAIR, AWAKEN WITH IV ALARMING, NEW BAG OF LR HUNG AND INFUSING WELL AT 125ML/HR, PT RECENTLY VOIDED 400ML YELLOW URINE, NOTED SMALL AMOUNT BRIGHT RED BLOOD IN TOILET, PRIMARY RN UPDATED, PT BACK TO SLEEP IN CHAIR.
--- NOTE | 2024-09-15 21:15 | NUR ---
PT STATED RELIEF FROM OXYCODONE BUT C/O THROBBING H/A. MEDICATED WITH TYLENOL 650MG PO. ON ROOM AIR, ALERT AND ORIENTED, INDEPENDENT. IVF INFUSING W/O PROBLEMS. ABD SLIGHT DISTENTION, ACTIVE. C/O INCREASED DISCOMFORT WHEN AMBULATING, VOIDING QS, SLIGHT OCASSIONAL PINK BLOOD CLOTH NOTED IN W URINE.
--- NOTE | 2024-09-15 23:42 | NUR ---
IN BED, ROOM AIR, IVF INFUSING, TURNS AND REPOSITIONS SELF IN BED
--- NOTE | 2024-09-16 01:13 | NUR ---
awake, up to BRP, independent in room, c/o back and abd pain /10. Medicated with Oxycodoen 5mg po. IVf infusing, turns and repositions self in bed. cooperative with second assessment
[2024-09-16 03:55] VITALS: BP 130/70
[2024-09-16 04:01] VITALS: BP 130/70
--- NOTE | 2024-09-16 04:08 | NUR ---
Awake, medicated with Tylenol per c/o abd and back pain. Sitting edge of bed, back from BRP, voiding QS yellow urine, no further c/o blood clots or reddish rectal smears when wiping, IVf infusing, cooperative with vitals. Pts own rice puding given on requests.
[2024-09-16 05:09] LABS: BASOPHILS 0.4 % (0-2); EOSINOPHILS 0.7 % (0-6); HEMATOCRIT 36.7 % (35.0-50.0); HEMOGLOBIN 12.4 g/dL (12.0-18.0); LYMPHOCYTES 12.2 % (24-44); MCH 30.7 (27-36); MCHC 33.8 g/dl (30-36); MCV 90.8 fl (81-99); MONOCYTES 8.9 % (0-12); NEUTROPHILS 77.8 % (39-80); PLATELET COUNT 223 K/uL (140-440); RBC 4.04 M/ul (4.3-5.7)
[2024-09-16 05:19] LABS: ANION GAP 10.9 (7-21); BUN/CREATININE RATIO 20.21 (6.0-28.6); CALCIUM 8.8 mg/dL (8.5-10.1); CREATININE, SERUM 0.94 mg/dL (0.55-1.02); MAGNESIUM 1.7 mg/dL (1.8-2.4); POTASSIUM 3.9 mmol/L (3.5-5.1)
--- NOTE | 2024-09-16 05:26 | NUR ---
Walking hallways, no further c/o pain. On room air, IVF infusing, voiding QS, no c/o n/v. No bm this shift
--- NOTE | 2024-09-16 07:15 | NUR ---
c/o throbbing legs and abd cramping, medicated with Oxycodone 5mg po. waked hallways again, tolerated well. Sitting up in chair, watching tv
--- NOTE | 2024-09-16 07:26 | NUR ---
PT UP INDEPENDANTLY TO THE TOILET AT TIME OF SHIFT REPORT. SHE IS IN THE CHAIR NOW WATCHING TV STATES SHE FEELS "SO MUCH BETTER" REPORTS SHE JUST RETURNED FROM A WALK DUE TO HER LEGS FEELING CRAMPY AGREES THE WALK HELPED. PT STATES SHE IS HOPING TO GO HOME TODAY. FRESH H20 PROVIDED PT DENIES OTHER NEEDS A THIS TIME
--- NOTE | 2024-09-16 08:24 | NUR ---
Board has been updated and call light has been placed within reach
--- NOTE | 2024-09-16 08:38 | NUR ---
PT UP IN THE CHAIR WITH MORNING MEAL. AGREES OXY TAKEN EARLIER WAS EFFECTIVE FOR HER DICOMFORTS.
--- NOTE | 2024-09-16 08:59 | NUR ---
BREAKFAST WELL TOLERATED PT BACK TO RESTING IN BED. DENIES PAIN OR NEEDS OF
[2024-09-16] MEDS ORDERED: MAGNESIUM CHLORIDE 64 MG TABCR PO SCH (09:00)
[2024-09-16 09:28] VITALS: BP 126/65
--- NOTE | 2024-09-16 11:00 | NUR ---
PT SITTING UP IN BED AT BEDSIDE. TYLENOL GIVEN PER REQUEST FOR C/O BOYCE
[2024-09-16 11:09] VITALS: BP 126/65
--- NOTE | 2024-09-16 11:46 | NUR ---
Patient requested Tylenol, nurse has been notified. No further request from patient at this time
--- NOTE | 2024-09-16 12:15 | NUR ---
DR BURKETT AND DR MCKEON BOTH IN TO SPEAK WITH PT AND HER . ALL QUESTIONS ANSWERED
[2024-09-16] MEDS ORDERED: METRONIDAZOLE250 MG PO (12:28)
[2024-09-16 13:05] VITALS: BP 147/82
== END 2024-09-16 13:15 | disposition home or self-care (01) | DRG 392 ==
LOC: ED 07:14 → MS 10:26
PROVIDERS: Emergency Medicine; ADMIT Student in an Organized Health Care Education/Training Program; ATTEND Student in an Organized Health Care Education/Training Program
DX: K57.32 Diverticulitis of large intestine without perforation or abscess without bleeding (principal); G25.81 Restless legs syndrome; K59.00 Constipation, unspecified; I10 Essential (primary) hypertension; E78.00 Pure hypercholesterolemia, unspecified; E83.42 Hypomagnesemia; Z66 Do not resuscitate; Z85.3 Personal history of malignant neoplasm of breast; Z98.890 Other specified postprocedural states; Z87.19 Personal history of other diseases of the digestive system; Z90.49 Acquired absence of other specified parts of digestive tract; Z90.710 Acquired absence of both cervix and uterus; Z88.5 Allergy status to narcotic agent; Z79.899 Other long term (current) drug therapy; Z79.891 Long term (current) use of opiate analgesic; Z80.0 Family history of malignant neoplasm of digestive organs; Z92.89 Personal history of other medical treatment; Z90.10 Acquired absence of unspecified breast and nipple; Z86.19 Personal history of other infectious and parasitic diseases
CPT/HCPCS: 36415; 74177; 80048; 80053; 81001; 83690; 83735; 85025; 96368; 96375; 96376; 99285-25; A9270; J0696; J1171; J1650; J2405; J7040; J7121; Q9967

== ENCOUNTER 2024-11-22 06:00 | Day surgery (SDC) | payer MEDICARE, OTHER ==
[2024-11-20 08:32] VITALS: BP 135/89
[~2024-11-22] VITALS: Ht 157.5 cm; Wt 71.8 kg
[~2024-11-22 06:00] MED LIST changes: +LACTATED RINGER'S 1,000 ML IV SCH; +MAG DELAY64 M1 PO; +MULTI VITAMIN1 EACH PO; +POTASSIUM CHLOR8 MEQ PO
[2024-11-22 06:12] VITALS: BP 123/78
[2024-11-22] MEDS ORDERED: TIZANIDINE HCL4 MG PO (06:18)
[2024-11-22] MEDS ORDERED: BENADRYL25 MG PO (06:18)
[2024-11-22] MEDS ORDERED: LIDOCAINE HCL 1% 5 ML SDV INJ ONE (07:00)
[2024-11-22] MEDS ORDERED: IBLOOD GLUCOSE TEST STRIP 1 EA TEST VI PRN (07:00)
[2024-11-22] MEDS ORDERED: propofoL 200 MG/20 ML VIAL ONE (07:18)
[2024-11-22] MEDS ORDERED: ondansetron HCL 4 MG/2 ML VIAL ONE (07:18)
[2024-11-22] MEDS ORDERED: LIDOCAINE HCL 2% 5 ML SDV ONE (07:18)
[2024-11-22] MEDS ORDERED: fentaNYL citrate 100 MCG/2 ML VIAL ONE (07:44)
--- NOTE | 2024-11-22 07:45 | NUR ---
PT NOT AVAILABLE FOR VISIT. PROVIDED PRAYER.
--- NOTE | 2024-11-22 08:09 | NUR ---
11/22/24 0809 Vania Sosa 0803-PATIENT ARRIVED TO PACU ON 6L MASK NONAROUSABLE ORAL AIRWAY IN PLACE RR EVEN. PATIENT LAYING LEFT LATERAL. IVF INFUSING. ABDOMEN SOFT. SR.
[2024-11-22 08:36] VITALS: BP 108/75
--- NOTE | 2024-11-23 11:29 | OR ---
[facility] [address] [place], [place] [address] Signed DATE OF OPERATION: 11/22/2024 SURGEON: Krish Burkett MD PREOPERATIVE DIAGNOSES: 1. Recurrent episodes of diverticulitis. 2. Left lower abdominal pain with fiber diet. POSTOPERATIVE DIAGNOSES: Narrowing of sigmoid colon related to diverticulosis. No evidence of neoplasm. PROCEDURE: Total colonoscopy to cecum. ANESTHESIA: Intravenous sedation, propofol; Nehemias Krishna CRNA INDICATIONS FOR THE PROCEDURE: This 84-year-old white woman is a patient of Dr. Mckoy. She has had episodes of recurrent diverticulitis requiring hospitalization. Upon re-initiation of fiber food, she has recurrent left lower abdominal pain. 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 Her recurrent symptoms now are reliably reproduced with any fiber intake whatsoever. She has had no blood per rectum. She has no family history of colon cancer. She is admitted at this time to undergo colonoscopy to assure that there is no sign of neoplasm causing her left lower abdominal symptoms and consideration is additionally made for possible sigmoid resection considering her clinical situation with recurrent diverticular disease and left lower abdominal pain. She understands the risk of colonoscopy including but not limited to bleeding, infection, and perforation, wished to proceed. FINDINGS: The prep was good. Distinct inability to pass a conventional colonoscope at 25 cm associated with diverticulosis was noted. Indeed, the conventional colonoscope could not pass beyond 25 cm and on that basis, an upper endoscope, which was much more narrow, was obtained and this eventually did allow passage to narrowed sigmoid area. There was not a distinct stricture per se, but a long segment of narrowing. Beyond the area of narrowing in the sigmoid, remaining colon was essentially normal, though there was a submucosal lipoma noted in the right colon. Diverticula were dominantly in the sigmoid Electronically Signed By: KRISH BURKETT MD 11/23/24 1129 PATIENT NAME: ALAN BRICEÑO OPERATIVE REPORT DATE OF : 42 REPORT #: [id number] PHYSICIAN: KRISH BURKETT MD PCP: KELSEY MCKOY MD REPORT IS CONFIDENTIAL AND NOT TO BE RELEASED WITHOUT AUTHORIZATION [facility] [address] [place], [place] [address] Signed and left colon and not elsewhere. DESCRIPTION OF PROCEDURE: The patient was brought to the surgical endoscopy suite and placed in lateral decubitus position given intravenous sedation with propofol infusional technique. Digital rectal examination was normal. An Olympus video colonoscope was passed through the rectum and manipulated into the rectosigmoid and the sigmoid. Angulation deformity and numerous diverticula were noted there. Various manipulations were made to allow for passage of the scope, but eventually it was clear it would not pass beyond approximately 25 cm. There was no actual neoplasm, but due to fibrosis and stensibility from narrowing, the scope could not pass this area. The scope was withdrawn and an upper endoscopy EGD scope obtained and passed similarly. In the area of concern with various manipulations and due to the narrow size of the upper scope, the area in question could be passed. The scope was then passed ultimately to the right colon with visualization of the cecum. A small submucosal lipoma was noted in the right colon. The scope was withdrawn from that point. Examination showed no sign of other abnormality, only diverticulosis of the left colon and dense diverticular change of the sigmoid and segment of narrowing not associated with apparent neoplasm. Retroflexed view of the rectum was normal. The scope was removed. The patient was taken the recovery room in good condition. CONCLUDING DIAGNOSIS: Has long segment narrowing of sigmoid colon without associated malignancy and recurrent diverticulitis. All of this is related to her diverticular disease and quite unlikely related to prior history of C difficile colitis. Consideration should be made for sigmoid resection electively. We will review this in an office setting and review the possibilities. I do not believe that balloon dilation in this area would be of benefit as it is not a discrete stricture, but rather a segment of narrowing, likely related to recurrent diverticulitis. MD JAMI Fields/ARLENL /[id number] cc: Dr. Mckoy Electronically Signed By: KRISH BURKETT MD 11/23/24 1129 PATIENT NAME: ALAN BRICEÑO OPERATIVE REPORT DATE OF : 42 REPORT #: [id number] PHYSICIAN: KRISH BURKETT MD PCP: KELSEY MCKOY MD REPORT IS CONFIDENTIAL AND NOT TO BE RELEASED WITHOUT AUTHORIZATION [address] [address] Signed Copies: ~ Electronically Signed By: KRISH BURKETT MD 11/23/24 1129 PATIENT NAME: ALAN BRICEÑO OPERATIVE REPORT DATE OF : 42 REPORT #: [id number] PHYSICIAN: KRISH BURKETT MD PCP: KELSEY MCKOY MD REPORT IS CONFIDENTIAL AND NOT TO BE RELEASED WITHOUT AUTHORIZATION
== END 2024-11-22 08:45 | disposition home or self-care (01) ==
LOC: OPS 06:00 → DS 06:00 → OPS 07:30 → DS 10:00 → OPS 10:00
PROVIDERS: ATTEND Surgery
PROC: 0DJD8ZZ Inspection of Lower Intestinal Tract, Via Natural or Artificial Opening Endoscopic (ICD-10-PCS; principal; 2024-11-22 07:30)
DX: K63.89 Other specified diseases of intestine (principal); K57.30 Diverticulosis of large intestine without perforation or abscess without bleeding; K62.9 Disease of anus and rectum, unspecified; Z88.5 Allergy status to narcotic agent
CPT/HCPCS: J2003; J2405; J2704; J3010

== ENCOUNTER 2024-12-11 09:42 | Inpatient (IN) | payer MEDICARE, OTHER ==
[~2024-12-11] VITALS: Ht 157.5 cm; Wt 67.7 kg
[~2024-12-11 09:42] MED LIST changes: +BENADRYL25 MG PO; -LACTATED RINGER'S 1,000 ML IV SCH; +TIZANIDINE HCL4 MG PO
[2024-12-11 11:38] VITALS: BP 135/92
[2024-12-13] VITALS (7 sets, daily range): BP systolic 134–161; BP diastolic 77–98
[2024-12-13] MEDS ORDERED: LACTATED RINGER'S 1,000 ML IV SCH ×2 (05:00→15:00)
[2024-12-13] MEDS ORDERED: metroNIDAZOLE/SODIUM CHLORIDE 500 MG/100 ML PIGGYBACK IV SCH ×2 (07:00→22:00)
[2024-12-13] MEDS ORDERED: CEFAZOLIN SODIUM 2 GM/20 ML SYR IV SCH ×2 (07:00→22:00)
[2024-12-13] MEDS ORDERED: HEParin SOD (PORCINE) 5,000 UNIT/ML SDV SUB-Q SCH (07:00)
[2024-12-13] MEDS ORDERED: LIDOCAINE HCL 1% 5 ML SDV INJ ONE (07:00)
[2024-12-13] MEDS ORDERED: IBLOOD GLUCOSE TEST STRIP 1 EA TEST VI PRN ×2 (07:00→12:45)
[2024-12-13] MEDS ORDERED: fentaNYL citrate 100 MCG/2 ML VIAL ONE ×2 (10:22→11:11)
[2024-12-13] MEDS ORDERED: ROCURONIUM BROMIDE 50 MG/5 ML SYR ONE ×2 (10:22→10:52)
[2024-12-13] MEDS ORDERED: LIDOCAINE HCL 2% 5 ML SDV ONE ×3 (10:22→13:46)
[2024-12-13] MEDS ORDERED: SODIUM CHLORIDE 0.9% 40 ML IV ONE ×3 (10:22→13:46)
[2024-12-13] MEDS ORDERED: propofoL 200 MG/20 ML VIAL ONE ×4 (10:22→13:50)
[2024-12-13] MEDS ORDERED: dexmedeTOMIDine HCl 200 MCG/2 ML VIAL ONE (10:22)
[2024-12-13] MEDS ORDERED: MAGNESIUM SULFATE 1 GM/2 ML VIAL ONE ×3 (10:22→13:47)
[2024-12-13] MEDS ORDERED: ACETAMINOPHEN 1,000 MG/100 ML VIAL ONE (10:22)
[2024-12-13] MEDS ORDERED: KETAMINE in NS 50 MG/5 ML SYR ONE ×3 (10:26→13:53)
[2024-12-13] MEDS ORDERED: DEXAMETHASONE SOD PHOS 4 MG/ML VIAL ONE ×2 (10:35→14:02)
[2024-12-13] MEDS ORDERED: SEVOFLURANE 250 ML BTL INH ONE (10:35)
[2024-12-13] MEDS ORDERED: droPERidol 5 MG/2 ML VIAL ONE (10:46)
[2024-12-13] MEDS ORDERED: SCOPOLAMINE 1 MG/3 DAYS PATCH 1 EACH TDSY ONE (10:52)
[2024-12-13] MEDS ORDERED: GLYCOPYRROLATE 1 MG/5 ML MDV ONE (11:11)
[2024-12-13] MEDS ORDERED: KETOROLAC TROMETHAMINE 30 MG/ML VIAL IV PRN ×2 (12:45→15:00)
[2024-12-13] MEDS ORDERED: NALOXONE HCL 0.4 MG SYR IV PRN (12:45)
[2024-12-13] MEDS ORDERED: ondansetron HCL 4 MG/2 ML VIAL IV PRN ×2 (12:45→15:00)
[2024-12-13] MEDS ORDERED: fentaNYL citrate 50 MCG/ML SDV IV PRN (12:45)
[2024-12-13] MEDS ORDERED: ondansetron HCL 4 MG/2 ML VIAL ONE (13:59)
[2024-12-13] MEDS ORDERED: Ropivacaine HCl 0.5% 30 ML VIAL ONE (14:02)
[2024-12-13] MEDS ORDERED: SODIUM CHLORIDE 0.9% 20 ML IV ONE (14:02)
[2024-12-13] MEDS ORDERED: SUGAMMADEX SODIUM 200 MG/2 ML ML ONE (14:04)
--- NOTE | 2024-12-13 14:46 | NUR ---
12/13/24 1446 Vania Sosa 1439-PATIENT ARRIVED TO PACU ON 6L MASK NONAROUSABLE ORAL AIRWAY DOES HAVE ARMS BENT AT ELBOWS. SR. HR 80'S. IVF INFUSING. DRESSING INTACT TO ABDOMEN CARLY TO LLQ SANGUINOUS DRAINAGE. BRAUN CATHETER DRAINING YELLOW URINE 1445- DOING JAW TILT TO MAINTAIN OPEN AIRWAY ORAL AIRWAY IN PLACE 6L MASK RR EVEN. PATIENT WILL OPEN EYES NOT FOLLOWING COMMANDS.
[2024-12-13] MEDS ORDERED: ENOXAPARIN SODIUM 40 MG/0.4 ML SYR SUB-Q SCH (14:54)
[2024-12-13] MEDS ORDERED: HYDROmorphone HCL 1 MG/ML SYR IV PRN (15:00)
[2024-12-13] MEDS ORDERED: ACETAMINOPHEN 1,000 MG/100 ML VIAL IV PRN (15:00)
[2024-12-13] MEDS ORDERED: PRAMIPEXOLE DIHYDROCHLORIDE 0.5 MG TAB PO PRN (15:30)
--- NOTE | 2024-12-13 15:35 | NUR ---
PT ARRIVES TO FLOOR IN HOSPITAL BED WITH PACU NURSES. REPORT RECEIVED. VS TAKEN AND RECORDED. PT IS MOVING HER LEGS AND RESTLESS IN BED, REPORTS THAT SHE IS IN PAIN IN HER ABDOMEN AND LEGS AND RATES IT 9/10. PT HAS ORDERS FOR MIRAPEX PO. PT TAKES SMALL SIPS OF WATER AND TOLERATES WELL. PO MIRAPEX ADMINISTERED AT THIS TIME. IV TO L FOREARM FLUSHES WNL, IVF INFUSING WNL. SCDs IN PLACE. CPOX AT BEDSIDE. PT ARRIVES TO FLOOR WITH 2L O2 VIA NC, PACU NURSE REPORTS PT DESATTED AFTER FENTANYL ADMINISTRATION. PT RR EVEN AND UNLABORED AT THIS TIME. PT ASSISTED TO REPOSITION WITH TANK PORTER. PILLOW UNDER BACK ON L SIDE, PT PIVOTS SLIGHT ONTO R HIP. TWO ICE PACKS APPLIED TO MIDLINE INCISION WITH PILLOW ALSO SUPPLIED FOR SPLINTING SUPPORT. BRAUN CATH TO R OF BED DRAINING FREELY CLEAR, YELLOW URINE. ATTEMPTING TO DECREASE STIMULATION AT THIS POINT TO EASE PTs PAIN. CALL LIGHT IN REACH. PTs REMAINS IN ROOM.
--- NOTE | 2024-12-13 16:17 | NUR ---
PT CONTINUES TO COMPLAIN OF 9/10 PAIN IN HER ABDOMINAL INCISION. PRN IV PAIN MEDICATION ADMINISTERED AT THIS TIME. FRANCESCO DRAIN TO LLQ STRIPPED AT THIS TIME. DRESSING REMAINS C/D/I. PT REPOSITIONED WITH ASSISTANCE FROM SON, SERJIO. PT CURRENTLY RESTING ON HER BACK WITH PILLOW BENEATH HER KNEES. PT BEGINS TO AUDIBLY SNORE. PTs SPO2 DECREASES AND SUSTAINS 88%. PT O2 INCREASED TO 3L AT THIS TIME TO MAINTAIN SPO2>92%. PTs SON AND PTs REPORT PTs SNORE AND SOUND OF HER BREATHING ARE NORMAL FOR HER, THEY REPORT THIS IS HOW SHE SOUNDS AT HOME SHE HAS SLEEP APNEA BUT REFUSES A CPAP. PT RESTING WITH EYES CLOSED, RR EVEN AND UNLABORED AT THIS TIME. CPOX AT BEDSIDE, BRAUN AT BEDSIDE, SCDs IN PLACE, IVF INFUSING WNL.
--- NOTE | 2024-12-13 18:13 | NUR ---
60ML SEROSANGUINOUS FLUID DRAINED FROM FRANCESCO DRAINED. PT EDUCATED ON PURPOSE OF FRANCESCO DRAIN, VERBALIZES INTEREST IN LEARNING. PT SIPPING ON FLUIDS AT THIS TIME, REPORTS NO NAUSEA OR DISCOMFORT. STAT LOCK APPLIED TO PTs R THIGH FOR BRAUN CATH, BRAUN CATH DRAINING CLEAR, YELLOW URINE AT THIS TIME. DISCUSSED WITH PT REGARDING PAIN AND ECNOURAGED TO CALL BEFORE PAIN GOT OUT OF CONTROL SO WE COULD MANAGE HER PAIN APPROPRIATELY. PT VERBALIZES UNDERSTANDING AND AGREEABLE TO CALLING WHEN PAIN REACHES A 4/10. PT ASSISTED TO PLUG IN HER CELL PHONE AT THIS TIME, CALL LIGHT IN REACH, NO OTHER REQUESTS.
--- NOTE | 2024-12-13 18:18 | NUR ---
OXYGEN TITRATED TO 2L AT THIS TIME PT SUSTAINS SPO2>95% ON CPOX.
--- NOTE | 2024-12-13 19:55 | NUR ---
REPORT RECEIVED FROM CRAIG LONGORIA. pt RESTING IN THE BED. BOARD UPDATED. SKIN CHECK DONE. MIDLINE INCISION CDI. GAUZE AROUND DRAIN SATURATED. DR BURKETT AWARE. pt DENIES ANY OTHER NEEDS AT THIS TIME. CALL LIGHT WITHIN REACH.
--- NOTE | 2024-12-13 20:34 | NUR ---
ASSESSMENT AND VITAL SIGNS DONE. pt SAT UP ON THE EDGE OF THE BED AND STOOD AND TOOK A COUPLE STEPS. pt STATES SHE HAD A LITTLE BIT OF DIZZINESS AND SAT BACK DOWN ON THE BED. pt ABLE TO GET BACK ON THE BED. SCD'S ON. IV INFUSING PER ORDER. pt C/O 02/14 PAIN. PRN PAIN MEDS AT THIS TIME. DRESSING CDI. DRESSING AROUND DRAIN SATURATED BUT NOT COMING OFF. pt DENIES ANY OTHER NEEDS AT THIS TIME. CALL LIGHT WITHIN REACH.
[2024-12-13] MEDS ORDERED: FAMOTIDINE 20 MG/ 2 ML VIAL IV SCH (21:00)
[2024-12-13] MEDS ORDERED: ACETAMINOPHEN 500 MG TAB PO SCH (22:00)
--- NOTE | 2024-12-13 22:25 | NUR ---
pt C/O 4/10 PAIN. PRN PAIN MEDS ADMINISTERED. pt C/O PRESSURE IN THE BLADDER. pt BLADDER SCANNED FOR NO VOLUME IN THE BLADDER. BRAUN CARE DONE. BALOON DEFLATED AND REINFLATED. WITH REINFLATION pt COMPLAINED OF PRESSURE. THIS RN LEFT 5mL OF NS IN THE BALLOON OF BRAUN CATHETER FOR pt CONFORT. BRAUN STILL IN PLACE. pt DENIES ANY OTHER NEEDS AT THIS TIME. CALL LIGHT WITHIN REACH.
[2024-12-14] VITALS (10 sets, daily range): BP systolic 97–131; BP diastolic 46–68
--- NOTE | 2024-12-14 00:20 | NUR ---
pt CALLED TO GO ON A WALK. THIS RN AND TALLOW REFINER ELIESER WALK pt ONE TIME AROUND MED/SURG. pt SBA WHILE pt HELD ONTO THE IV POLE THIS RN FOLLOWED pt WITH WHEEL CHAIR FOR SAFETY. pt C/O 01/14 PAIN. PRN PAIN MEDS ADMINSTERED. pt DENIES ANY OTHER NEEDS AT THIS TIME. CALL LIGHT WITHIN REACH.
--- NOTE | 2024-12-14 01:32 | NUR ---
KITCHEN WORKER OBTAINED VITALS AND I&O. BRAUN BAG EMPTIED. ICE WATER REFILLED. PT STATES NO FURTHER NEEDS AT THIS TIME. CALL LIGHT WITHIN REACH.
--- NOTE | 2024-12-14 03:15 | NUR ---
pt CALLED AND C/O 02/14 PAIN. PRN PAIN MEDS ADMINISTERED. pt C/O NAUSEA. PRN NAUSEA MEDS ADMINISTERED. pt DENIES ANY OTHER NEEDS AT THIS TIME. CALL LIGHT WITHIN REACH. SCOPE PATCH FOUND IN BED.
--- NOTE | 2024-12-14 04:41 | NUR ---
ASSESSMENT AND VITAL SIGNS DONE. BRAUN EMPTIED. FRANCESCO DRAIN EMPTIED. pt STOMACH BLOATED. MIDLINE INCISION HAS MINIMAL DRAINAGE. FRANCESCO DRAIN LEAKING AROUND TUBE. pt DENIES ANY NEEDS AT THIS TIME. CALL LIGHT WITHIN REACH.
[2024-12-14 05:53] LABS: BASOPHILS 0.7 % (0-2); EOSINOPHILS 0.2 % (0-6); HEMATOCRIT 35.1 % (35.0-50.0); LYMPHOCYTES 6.2 % (24-44); MCH 30.8 (27-36); MCHC 34.2 g/dl (30-36); MCV 90.1 fl (81-99); MONOCYTES 9.2 % (0-12); NEUTROPHILS 83.7 % (39-80); PLATELET COUNT 247 K/uL (140-440)
[2024-12-14 06:04] LABS: ANION GAP 8.8 (7-21); BUN/CREATININE RATIO 17.2 (6.0-28.6); CALCIUM 8.4 mg/dL (8.5-10.1); CREATININE, SERUM 0.93 mg/dL (0.55-1.02); POTASSIUM 3.8 mmol/L (3.5-5.1)
--- NOTE | 2024-12-14 07:12 | NUR ---
REPORT RECEIVED FROM VON GARCIA. PT AWAKE AND ALERT IN BED WITH FAMILY AT BEDSIDE. SURGICAL DRESSING AND DRAIN OBSERVED WITH VON GARCIA. PT REQUESTING REMOVAL OF BRAUN CATHETER AND REPORTS FLATULENCE THROUGH THE NIGHT. NO REQUESTS AT THIS TIME, CALL LIGHT IN REACH.
--- NOTE | 2024-12-14 07:50 | NUR ---
INTO SEE PATIENT. SON AT BEDSIDE. PATIENT ALERT AND ORIENTED. PATIENT LIVES IN A HOUSE AND NO STEPS. SHE DENIES DIFFCULTY GETTING INTO THE HOUSE OR OUT OF BED. NO DME. SHE DENIES ANY DIFFCULTY PAYING UTILITIES OR OBTAINING FOOD. PATIENT FELIPE WILL PICK HER UP AT DISCHARGE. DENIES ANY NEEDS FROM CM AT THIS TIME.
--- NOTE | 2024-12-14 08:30 | NUR ---
PT UP TO USE RESTROOM, SMALL SMEAR NOTED TO CHUX ON BED. PT PROVIDES HER OWN JOHNATHON-CARE, PULL-UP PROVIDED FOR PT COMFORT. PT APPEARS ANXIOUS THIS AM, SHE IS SPEAKING RAPIDLY AND JUMPING FROM SUBJECT TO SUBJECT. THERAPEUTIC COMMUNICATION PROVIDED. PT REMAINS ANXIOUS, WANTS HER BRAUN CATHETER REMOVED SOON MD ALLOWS AND IS CONCERNED ABOUT HER STOMACH PAIN. EDUCATED PT ON SURGERY AND SIDE EFFECTS, PRN PAIN MEDICATION ALSO ADMINISTERED AT THIS TIME. PT VERBALIZES UNDERSTANDING, STILL APPEARS ANXIOUS. PT GOES TO HER RECLINER TO SIT UP FOR BREAKFAST, STRUGGLES TO GET COMFORTABLE. MD IN TO ASSESS AND SEE PT, ALL QUESTIONS ANSWERED. ORDERS BRAUN CATH REMOVED. BRAUN CATH REMOVED AT THIS TIME. CARLY DRAIN DRESSING REINFORCED WITH GAUZE AND TAPE D/T SEROSANGUINOUS FLUID LEAKING FROM AROUND SITE BOTHERING THE PT. PT UP TO AMBULATE IN HALLS WITH SON. PT AMBULATES TWO LAPS WITH SBA AND GETS INTO BED. DRESSING TO MIDLINE INCISION IS D/I WITH SCANT AMOUNT OF SHADOWING NOTED TO CENTER OF DRESSING. NO OTHER REQUESTS AT THIS TIME, CALL LIGHT IN REACH.
--- NOTE | 2024-12-14 09:48 | NUR ---
UR CLINICAL REVIEW: 2MN [facility], MEETS INPT SIGMOID COLECTOMY MEDICARE INPT 12/13/2024 @ 1953 ORDER MATCHES REG NO AUTH REQUIRED PER MEDICARE RULES PLAN TO DC TO HOME WHEN MEDICALLY CLEARED
--- NOTE | 2024-12-14 10:14 | NUR ---
MED REC COMPLETE
--- NOTE | 2024-12-14 10:30 | NUR ---
PRN PAIN MEDICATION ADMINISTERED, SEE MAR. PT IS EXPERIENCING ANXIETY REGARDING HER ABDOMINAL PAIN WELL HER LEG PAIN. HER IS PRESENT AT THE BEDSIDE. PT IS RESTLESS IN THE BED, REPORTS LEG PAIN IS GREATER THAN HER ABDOMINAL PAIN BUT REPORTS THIS IS HER NORMAL PAIN SHE EXPERIENCES AT HOME. PT REPORTS TOO MUCH EXERCISE CAN SET THIS OFF, DENIES WANTING TO GO FOR ANOTHER WALK AT THIS TIME. PT ABDOMINAL PAIN SHE REPORTS IS CRAMPY AND SHE CAN FEEL GAS MOVING AROUND. PT ASSISTED TO REPOSITION ONTO HER L SIDE WITH PILLOW FOR SPLINTING AND ICE PACK IN PLACE TO ABDOMEN. PT ENCOURAGED TO USE BREATHING TECHNIQUES, STIMULATION DECREASED WITHIN THE ROOM. PTs LEGS WRAPPED IN WARM BLANKETS WELL, PT REPORTS THIS SOMETIMES HELPS WITH THE PAIN IN HER LEGS. PT MIDLINE INCISION DRESSING IS DRY AND INTACT, SMALL AMOUNT OF SHADOWING NOTED. GAUZE TO CARLY INSERTION SITE IS SATURATED WITH SEROSANGUINOUS FLUID - THIS IS REINFORCED AT THIS TIME WITH GAUZE AND OPSITE TO HOLD GAUZE IN PLACE AND PREVENT DRAINAGE ON PTs GOWN AND PULL-UP THIS IS CONCERNING TO HER. PT EDUCATED THAT HAS SEEN THIS DRAINAGE AND REPORTED IT WAS ALRIGHT. BOWEL TONES ARE ACTIVE IN ALL QUADRANTS, SHE IS TENDER TO PALPATION IN ALL QUADRANTS AND HER BELLY IS MODERATELY DISTENDED BUT SOFT. PT REPORTS MILD NAUSEA WHICH DECREASES WITH INTAKE. PT TAKES A FEW BITES OF PUDDING AT THIS TIME TO REDUCE NAUSEA ASSOCIATED WITH PAIN MEDICATION. THIS IS TOLERATED WELL. PTs REMAINS IN ROOM, PT REPORTS FEELING MORE RELAXED. NO OTHER REQUESTS, CALL LIGHT IN REACH.
--- NOTE | 2024-12-14 11:04 | NUR ---
DIET ORDER INCREASED TO FULL LIQUID AT THIS TIME. DIETARY NOTIFIED.
--- NOTE | 2024-12-14 11:19 | NUR ---
PT NOT AVAILABLE FOR VISIT. PROVIDED PRAYER.
--- NOTE | 2024-12-14 12:47 | NUR ---
PT AMBULATES INDEPENDENTLY 1.5 LAPS AROUND NURSEs STATION. PT UTILIZES IV POLE WITHOUT ISSUE, HAS APPLIED MAKEUP AND DONE HER DONE, SHE REPORTS THAT SHE IS FEELING VERY GOOD. PT ATE 50% OF FULL LIQUID LUNCH AND REPORTS IT HAS SERVED TO SETTLE HER STOMACH. NO NAUSEA, NO DISCOMFORT. PT PASSES SMALL AMOUNT OF LIQUID STOOL IN HER PULL-UP AND REPORTS "A LOT" OF FLATULENCE. PT AMBULATES BACK TO ROOM, CHANGES HER BRIEF WITH ASSISTANCE, AND THEN RETURNS TO BED. SHE IS ON HER R SIDE WITH PILLOW BETWEEN HER LEGS AND PROPPING HER UP. SHE REPORTS THIS SIDE LYING POSITION WAS EARLIER VERY BENEFICIAL TO HER PAIN. CPOX REMOVED AT THIS TIME, PT HAS SUSTAINED SPO2>95% ON ROOM AIR ALL DAY. NO OTHER REQUESTS AT THIS TIME, CALL LIGHT IN REACH.
[2024-12-14] MEDS ORDERED: KETOROLAC TROMETHAMINE 15 MG/ML VIAL IV PRN (14:00)
--- NOTE | 2024-12-14 15:47 | NUR ---
PRN PAIN MEDICATION ADMINISTERED, SEE MAR. PT RESTING IN BED AFTER AMBULATING TWO LAPS IN HALLS WITH . PT IS REPORTING CRAMPY, GAS PAIN IN HER ABDOMEN. FRESH ICE PACK SUPPLIED, WARM BLANKETS PROVIDED FOR LEGS PT REPORTS THIS OFFERS SOME RELIEF FROM RLS SYMPTOMS. PT HAS VISITORS PRESENT AT BEDSIDE. SHE APPEARS MILDLY ANXIOUS AT THIS TIME. THERAPEUTIC COMMUNICATION PROVIDED. PT DOES NOT WANT TO TRY A SIDE LYING POSITION AT THIS TIME, PREFERRING TO STAY ON HER BACK. FRESH ICE WATER PROVIDED. CALL LIGHT IN REACH. NO OTHER REQUESTS.
--- NOTE | 2024-12-14 16:00 | NUR ---
PATIENT DID HER LAPS TODAY EITHER INDEPENDENTLY OR FAMILY.
--- NOTE | 2024-12-14 16:02 | NUR ---
CHANGED BED LINENS THIS MORNING.
--- NOTE | 2024-12-14 16:15 | NUR ---
FRANCESCO DRAIN DRESSING HAS GAUZE AND TAPE WHICH REMAINS IN PLACE AND PREVENTING FURTHER DRAINAGE FROM PTs GOWN. DRESSING TO MIDLINE INCISION IS DRY AND INTACT WITH SMALL AMOUNT OF SHADOWING UNCHANGED FROM THIS AMs ASSESSMENT. PT HAS BEEN TOLERATING FULL LIQUID DIET WELL, NO NAUSEA/VOMITING, NO DISCOMFORT, REPORTS THE MASSEY FOODS ARE HELPING HER FEEL BETTER. FRANCESCO DRAIN DRAINAGE REMAINS SEROSANGUINOUS, REPORTED IN I&Os. PT RESTING IN BED WITH SON AT BEDSIDE, APPEARS RELAXED AND IN NO DISTRESS AT THIS TIME. EXPRESSES EAGERNESS FOR SUPPER. CALL LIGHT IN REACH, NO REQUESTS AT THIS TIME.
--- NOTE | 2024-12-14 17:15 | NUR ---
PRN PAIN MEDICATION ADMINISTERED, SEE MAR. PT IS ASSISTED TO HER R SIDE AT THIS TIME WITH PILLOWS PLACED FOR COMFORT. PT HAS TWO VISITORS IN ROOM AND IS BEGINNING TO GET ANXIOUS REGARDING HER PAIN. THERAPEUTIC COMMUNICATION PROVIDED, PT WALKED THROUGH BREATHING EXERCISED WHICH SHE PERFORMS AT THIS TIME. PTs BREATHING RELAXES AND SHE SETTLES. AT THIS TIME PT IS RESTING WITH EYES CLOSED, RR EVEN AND UNLABORED. PTs VISITORS EXIT AT THIS TIME. CALL LIGHT IN REACH.
--- NOTE | 2024-12-14 18:11 | NUR ---
PT EATING SUPPER AT THIS TIME. NO NAUSEA, NO DISCOMFORT. APPEARS RELAXED AND IN NO DISTRESS IN BED. NO REQUESTS, CALL LIGHT IN REACH.
--- NOTE | 2024-12-14 19:05 | NUR ---
REPORT RECEIVED FROM CRAIG LONGORIA. pt RESTING IN THE BED. BOARD UPDATED. pt DENIES ANY NEEDS AT THIS TIME. CALL LIGHT WITHIN REACH.
--- NOTE | 2024-12-14 19:45 | NUR ---
PTS FAMILY TO RN STATION, STATES THAT PT HAS NAUSEA, REQUESTING MEDICATION. PRN ADMINISTERED, SEE EMAR. AFTER PRN ADMINISTRATION PT STATES THAT SHE IS ALSO EXPERIENCING PAIN, RATES 4/10 TO ABD. PRN PAIN MEDICATION ADMINISTERED. SEE EMAR. PT PROVIDED WITH ICE PACK TO ABD AND WARM BLANKET. DENIES FURTHER NEEDS AT THIS TIME. CALL LIGHT IN REACH. FAMILY PRESENT AT BEDSIDE.
--- NOTE | 2024-12-14 20:15 | NUR ---
SKATE SHOP ATTENDANT OBTAINED VITALS AT I&O. PT STATES NO FURTHER NEEDS AT THIS TIME. CALL LIGHT WITHIN REACH.
--- NOTE | 2024-12-14 20:45 | NUR ---
ASSESSMENT AND VITAL SIGNS DONE. NO NEW DRAINAGE AROUND THE FRANCESCO DRIAN. MIDLINE HAS MINIMAL DRAINAGE ON IT. pt DENIES ANY OTHER NEEDS AT THIS TIME. pt DENIES ANY PAIN AT THIS TIME. CALL LIGHT WITHIN REACH.
--- NOTE | 2024-12-14 22:28 | NUR ---
IV ABX HUNG IN RM. pt DENIES ANY OTHER NEEDS AT THIS TIME. CALL LIGHT WITHIN REACH. pt POSITIONED ON RIGHT SIDE.
--- NOTE | 2024-12-14 23:42 | NUR ---
pt CALLED FOR HELP TO GET BACK IN THE BED AFTER GOING TO THE BR. pt C/O 05/16 PAIN. pt C/O NAUSEA. pt DENIES ANY OTHER NEEDS AT THIS TIME. CALL LIGHT WITHIN REACH. PRN PAIN MEDS ADMINISTERED.
[2024-12-15] VITALS (10 sets, daily range): BP systolic 129–150; BP diastolic 66–73
--- NOTE | 2024-12-15 01:44 | NUR ---
pt RESTING THE BED. pt RESTING THE BED. pt DENIES ANY NEEDS AT THIS TIME. CALL LIGHT WITHIN REACH.
--- NOTE | 2024-12-15 03:36 | NUR ---
pt C/O 05/16 PAIN. PRN PAIN MEDS ADMINISTERED. pt BACK IN THE BED FROM THE CHAIR. pt DENIES ANY OTHER NEEDS AT THIS TIME. CALL LIGHT WITHIN REACH. ICE PACK PROVIDED.
--- NOTE | 2024-12-15 05:33 | NUR ---
pt UP TO THE BR. ASSESSMENT AND VITAL SIGNS DONE. pt ABD MILDLY DISTENDED. MIDLINE INCISION HAS MINIMAL DRAINAGE. FRANCESCO DRANAGE DRESSING IS SATURATED MD AWARE. pt DENIES ANY OTHER NEEDS AT THIS TIME. CALL LIGHT WITHIN REACH.
--- NOTE | 2024-12-15 07:08 | NUR ---
REPORT RECEIVED FROM VON GARCIA. PT RESTING IN BED ON PHONE. PT REPORTING SHE HAD "A HORRIBLE NIGHT" REGARDING HER PAIN. ABDOMEN NOTED TO BE LESS DISTENDED THAN YESTERDAY BUT WITH INCREASED PAIN WITH PALPATION TO THE LEFT QUADRANT. THERAPEUTIC COMMUNICATION PROVIDED. NO REQUESTS AT THIS TIME, CALL LIGHT IN REACH.
--- NOTE | 2024-12-15 08:44 | NUR ---
PT UP IN RECLINER EATING BREAKFAST AT THIS TIME. FAMILY MEMBERS PRESENT. PT IS TOLERATING BREAKFAST WELL, EXPRESSES EXCITEMENT IN ADVANCING HER DIET. MILD COMPLAINTS OF LOWER BACK PAIN SHE DESCRIBES "CRAMPY". NO REQUESTS AT THIS TIME, CALL LIGHT IN REACH.
[2024-12-15] MEDS ORDERED: FAMOTIDINE 20 MG/ 2 ML VIAL IV SCH (09:00)
--- NOTE | 2024-12-15 09:50 | NUR ---
MEDICATIONS ADMINISTERED, SEE MAR. ASSESSMENT COMPLETE. PT IN RECLINER, JUST FINISHED BREAKFAST, TOLERATED WELL WITH NO NAUSEA OR DISCOMFORT. ABDOMEN IS MODERATELY DISTENDED BUT SOFT WITH TENDERNESS TO PALPATION OF THE LLQ. BOWEL TONES ARE HYPOACTIVE IN ALL QUADRANTS BUT NORMOACTIVE IN THE LLQ WELL. PT ENDORSES PAIN TO HER LOWER BACK BACK SHE DESCRIBES ARE "CRAMPY" AND "MOVING". SHE DOES REPORT THAT SHE HAD LOWER BACK ISSUES IN THE PAST. DISCUSSED GAS PAIN, RETURN OF BOWEL MOVEMENTS, AND GENERAL PAIN ASSOCIATED WITH SURGERY. PT VERBALIZES UNDERSTANDING. FRANCESCO DRAIN STRIPPED, 12ML OF SEROSANGUINOUS FLUID WITH SOME CLOTS NOTED. GAUZE DRESSING TO FRANCESCO DRAIN INSERTION SITE IS SATURATED AND LOOSE, HANGING ON BY JUST THE EDGE OF OPSITE BUT HELD IN PLACE WITH PTs PULL-UP AT THIS TIME. PT AMBULATES WITH SBA TO RESTROOM, VOIDS BUT IS UNABLE TO HAVE A BOWEL MOVEMENT AT THIS TIME. PT THEN AMBULATES TWO LAPS IN THE HALLS WITH HER AND RETURNS TO HER ROOM AT THIS TIME. NO OTHER REQUESTS, CALL LIGHT IN REACH.
--- NOTE | 2024-12-15 10:25 | OR ---
[facility] [address], [place] [address] Signed DATE OF OPERATION: 12/13/2024 SURGEON: Krish Burkett MD PREOPERATIVE DIAGNOSIS: Chronic recurrent sigmoid diverticulitis with dense stricture of sigmoid. POSTOPERATIVE DIAGNOSIS: Chronic recurrent sigmoid diverticulitis with dense stricture of sigmoid. PROCEDURES: 1. Sigmoid colectomy with side-to-end coloproctostomy, prolonged complicated difficult. 2. Mobilization of splenic flexure. ANESTHESIA: General endotracheal. Nehemias Krishna, GENERAL ADMINISTRATOR and postoperative bilateral TAP block. HISTORY: This 84-year-old white woman is a patient of Dr. Dayami Mckoy. She has had recurrent bouts of sigmoid diverticulitis requiring hospitalization. I recently performed a colonoscopy on her. A dense stricture was noted in the sigmoid at approximately 25 cm, which was related to recurrent diverticulitis, no doubt. This stricture was dense enough that a conventional colonoscope could not be passed through it requiring instead a thin upper endoscope. Complete clearance of the colon more proximally was assured and the dense stricture was not malignant. The patient is completely disabled by pain: any diet other than liquids causes severe left lower abdominal pain. She is here to undergo sigmoid resection. She understands the risk of bleeding, infection, anastomotic failure, cosmetic deformity, recurrent diverticular disease, and other unforeseen complications. Understanding this, she wished to proceed. FINDINGS: A dense hard sigmoid colon was noted densely adherent to left pelvic sidewall. The operation was particularly prolonged and complicated on the basis of extensive fibrosis to allow for safe mobilization of the sigmoid and rectum. The left ureter was identified and unharmed. Splenic flexure mobilization was required to provide for a tension-free coloproctostomy. By conclusion, the anastomosis was widely patent and viable. The resected sigmoid and portion of rectum showed an impressively dense and lengthy sticture related to chronic recurrent diverticulitis. Electronically Signed By: KRISH BURKETT MD 12/15/24 1025 PATIENT NAME: ALAN BRICEÑO OPERATIVE REPORT DATE OF : 42 REPORT #: [id number] PHYSICIAN: KRISH BURKETT MD PCP: DAYAMI MCKOY MD REPORT IS CONFIDENTIAL AND NOT TO BE RELEASED WITHOUT AUTHORIZATION [facility] [address], [place] [address] Signed DESCRIPTION OF PROCEDURE: The patient was brought to the operating room, given a general endotracheal anesthetic. Preoperative antibiotic Ancef and Flagyl was given, preoperative bowel prep include oral antibiotics as well. A Valdez catheter was placed after satisfactory general endotracheal anesthesia. The abdomen was prepared with a chlorhexidine solution and draped sterilely. The previous low transverse abdominal scar from abdominoplasty was identified. An incision was made just below the umbilicus and extended to the symphysis pubis. Braided green-colored suture was noted in the midline fascial layer and these were removed. Application of a Bookwalter retractor to the table was undertaken. The abdomen was explored. There was no sign of extensive adhesions, ascites, or other problem. Manipulation of the bowel allowed for palpation deep within the pelvis showing dense adhesions of a segment of small bowel to the left adnexa. This was taken down with electrocautery ultimately mobilizing the small bowel completely. The bowel was retracted to the right side of the abdomen and packed with moist laparotomy packs. Palpation of the sigmoid showed a dense mass densely adherent to left pelvic sidewall. Proximal to this the descending colon was a completely soft and normal. The incision was extended just around the umbilicus to provide better exposure. The white line of Toldt was incised with electrocautery and using blunt and electrocautery dissection, dissection was carried down to the pelvic inlet. More distally, left adnexal structures were densely matted to the rectosigmoid. Dissection inferior to this was undertaken. Alternating dissection superiorly, inferiorly and ultimately from lateral to medial was undertaken mobilizing the sigmoid colon from its dense adhesions to the retroperitoneal area and pelvic brim. The left ureter was identified more proximally and extended lateral to the area of dissection and unlikely harmed in any way. This was considerably difficult given the extent of fibrosis. As is typical, once this was mobilized a "coil spring" appearance of the upper rectum down to the mid rectum was noted. Dissection was carried cephalad along the white line of Toldt to mobilize the left colon a bit more. A site on distal descending colon was designated as appropriate for transection to allow for anastomosis of normal colon to the mid rectum The mesentery corresponding to the sigmoid was sequentially secured with hemostats, divided, and 0 silk ties used to secure hemostasis. The descending colon was transected with a CALEB stapling device 60 mm in length. Further dissection over the Electronically Signed By: KRISH BURKETT MD 12/15/24 1025 PATIENT NAME: ALAN BRICEÑO ANN OPERATIVE REPORT DATE OF : 42 REPORT #: [id number] PHYSICIAN: KRISH BURKETT MD PCP: DAYAMI MCKOY MD REPORT IS CONFIDENTIAL AND NOT TO BE RELEASED WITHOUT AUTHORIZATION [facility] [address] [place] [id number] Signed sacral promontory and a very thickened sigmoid mesentery was undertaken. Clips were applied as necessary to secure hemostasis. Further dissection inferiorly the adnexal structures down to the mid rectum. Still this area is rather thickened and ultimately the rectum dissected to the distal and mid rectum identifying and area of soft and non inflammed mid rectum suitable for safe anastomosis A right angle bowel clamp was applied to this area, elevating the mid rectum for anastomosis. Security of the sigmoid and rectal mesenteric vessels was undertaken with 0 silk sutures and small clips as necessary. Further mobility of the left colon was required to provide her a tension-free anastomosis. Using blunt and electrocautery dissection, further mobilization of the left colon and ultimately splenic flexure was undertaken. By this point, the left colon could be easily placed to the mid pelvis to provide for a tension-free anastomosis. The staple line on the left colon was oversewn with interrupted 3-0 silk to avoid postoperative "blowout" of the staple line. A side-to-end ( Oscar) coloproctostomy was then undertaken in a two-layer technique of interrupted 3-0 silk suture. Excellent viability of both proximal and distal segments was noted. Once completed, the anastomosis was milked and found to have no sign of leakage or other problem. Irrigation was undertaken more fully. Through a left lower quadrant incision, a stab incision was made and a 7 mm flat Kelvin drain insinuated into the pelvis. The adnexal structures on the left side were once again examined and those areas that were bleeding were secured with ties, cautery and ultimately some Laurel hemostatic agent. The drain was attached to a bulb suction and irrigation was undertaken once again. Plans were then made for closure. The midline fascia was reapproximated with running bidirectional #1 PDS suture. Subcutaneous tissue was irrigated and the skin closed with running subcuticular 3-0 Vicryl. Steri-Strips were applied as was an Acticoat dressing. Notably, the specimen once opened showed an impressively narrow and dense stricture extending approximately 10 cm or more. Both the proximal and distal ends were quite viable, however. She was ultimately extubated after TAP blocks were placed bilaterally and taken to recovery room in good condition. Blood loss was 200 mL. Sponge, needle and instrument counts reported as correct x3. Krish Burkett MD JM/MODL Electronically Signed By: KRISH BURKETT MD 12/15/24 1025 PATIENT NAME: MARISELA COSBYSHARIALANROGELIO OPERATIVE REPORT DATE OF : 42 REPORT #: [id number] PHYSICIAN: KRISH BURKETT MD PCP: DAYAMI MCKOY MD REPORT IS CONFIDENTIAL AND NOT TO BE RELEASED WITHOUT AUTHORIZATION [address] [address] Signed /[id number] cc: Dayami Mckoy MD Copies: ~ Electronically Signed By: KRISH BURKETT MD 12/15/24 1025 PATIENT NAME: ALAN BRICEÑO OPERATIVE REPORT DATE OF : 42 REPORT #: [id number] PHYSICIAN: KRISH BURKETT MD PCP: DAYAMI MCKOY MD REPORT IS CONFIDENTIAL AND NOT TO BE RELEASED WITHOUT AUTHORIZATION
--- NOTE | 2024-12-15 10:40 | NUR ---
MIDLINE DRESSING REMOVED AT THIS TIME PER MD. GAUZE REMOVED FROM FRANCESCO DRAIN INCISION. SMALL AMOUNT DRIED DRAINAGE NOTED TO BOTTOM STERI-STRIPS. SCANT SPOTTY DRIED DRAINAGE SPOTS TO REMAINING MIDLINE INCISION. SKIN CLEANED WITH ALOCHOL PAD AROUND FRANCESCO DRAIN GAUZE. NO ERYTHEMA, SWELLING, OR WARMTH NOTED. ICE PACK PROVIDED TO PT INCISION. PTs REMAINS IN ROOM. NO REQUESTS, CALL LIGHT IN REACH.
--- NOTE | 2024-12-15 12:10 | NUR ---
PRN PAIN MEDICATION ADMINISTERED, SEE MAR. PT RESTING IN BED AFTER INDEPENDENTLY USING RESTROOM. REPORTS HER LOWER BACK AND ABD PAIN IS 7/10. AFTER MEDICATION ADMINISTRATION PT IS RESTING WITH EYES CLOSED, RR EVEN AND UNLABORED WITH AUDIBLE SNORE. CPOX PLACED TO ASSESS, PTs SPO2 SUSTAINS 86-88% ON ROOM AIR. 2LNC APPLIED WHILE PT IS RESTING, CPOX SUSTAINS>95%. PTs ARRIVES TO VISIT, PT HAS NO OTHER REQUESTS AT THIS TIME, CALL LIGHT IN REACH.
--- NOTE | 2024-12-15 13:04 | NUR ---
PT RESTING IN BED AT THIS TIME, MULTIPLE VISITORS PRESENT. REPORTS HER PAIN IS NOW A 2/10 AND SHE "FEELS GOOD". NO REQUESTS AT THIS TIME, CALL LIGHT IN REACH.
--- NOTE | 2024-12-15 13:40 | NUR ---
PT RESTING IN BED CONVERSING WITH VISITOR IN ROOM. NO REQUESTS AT THIS TIME, CALL LIGHT IN REACH.
--- NOTE | 2024-12-15 14:37 | NUR ---
PT AMBULATING INDEPENDENTLY IN HALLS AT THIS TIME.
--- NOTE | 2024-12-15 16:01 | NUR ---
PT RESTING IN BED WATCHING TELEVISION, CONVERSING PLEASANTLY WITH THIS RN. PT REPORTS HER LOWER BACK AND ABDOMINAL PAIN ARE AT A 4/10 AND SHE ENDORSES MILD NAUSEA. PRN PAIN MEDICATION AND NAUSEA MEDICATION ADMINISTERED. PT AMBULATES INDEPENDENTLY TO RESTROOM. SHE REPORTS THIS IS HER SECOND EPISODE OF URINARY URGENCY TODAY WHEREIN SHE WAS UNABLE TO GET HER PULL-UPS DOWN IN TIME AND HAD AN EPISODE OF INCONTINENCE. SHE REPORTS NO DYSURIA, HER URINE REMAINS CLEAR AND YELLOW AT THIS TIME. PT RESTING BACK IN BED DURING MEDICATION ADMINSTRATION, EYES CLOSED, RR EVEN AND UNLABORED WITH MOUTH OPEN AND SOFT AUDIBLE SNORE. PT BOWEL TONES ARE ACTIVE THROUGHOUT ALL QUADRANTS, HER ABDOMEN IS STILL DISTENDED THOUGH UNCHANGED FROM THIS MORNING AND REMAINS SOFT. FLINCHING NOTED WITH PALPATION OF LLQ, BUT PT DOES NOT VERBALLY VOICE PAIN. MIDLINE INCISION IS OPEN TO AIR WITH STERI-STRIPS IN PLACE. NO ERYTHEMA OR WARMTH. INCISION SITE FOR FRANCESCO DRAIN ALSO OPEN TO AIR AT THIS TIME, STITCHES IN PLACE. FRANCESCO DRAIN TUBING IS STRIPPED AT THIS TIME. PT RESTING IN NO DISTRESS. REPORTS HER FAMILY MEMBER IS BRINGING IN TAPIOCA PUDDING FOR HER AND SHE IS LOOKING FORWARD TO THIS. NO FURTHER REQUESTS, CALL LIGHT IN REACH.
--- NOTE | 2024-12-15 16:39 | NUR ---
PT SELF-ADMINISTERS BATH FROM BASIN OF SOAPY WATER. REPORTS SHE "DOESN'T TAKE SHOWERS" AND THIS IS HOW SHE'S ALWAYS BATHED. PT PERFORMS TASK INDEPENDENTLY AND DRESSES HERSELF INDEPENDENTLY. PTs ARRIVES NEAR END OF TASK. PT TOLERATED ACTIVITIES VERY WELL. NO REQUESTS AT THIS TIME, CALL LIGHT IN REACH.
--- NOTE | 2024-12-15 18:35 | NUR ---
PRN PAIN MEDICATION ADMINISTERED, SEE MAR. PT IS RESTING UP IN RECLINER WITH BLE ELEVATED AT THIS TIME. PT COMPLAINS OF DRY COUGH THAT IS HURTING HER ABDOMEN. PT DEMONSTRATES INCENTIVE SPIROMETER USE X10, PT ENCOURAGED TO CONTINUE USING IS AND EDUCATED ON BENEFITS. PT VERBALIZES UNDERSTANDING. NO OTHER REQUESTS AT THIS TIME, CALL LIGHT IN REACH.
--- NOTE | 2024-12-15 19:21 | NUR ---
REPORT RECEIVED FROM DAY SHIFT RN. PT SITTING IN RECLINER ALERT AND ORIENTED. DENIES NEEDS. WHITE BOARD UPDATED. CALL LIGHT IN REACH.
--- NOTE | 2024-12-15 20:13 | NUR ---
EVENING ASSESSMENT COMPLETE. PT REPORTS ABD PAIN 4/10. PRN FOR PAIN ADMIN PER EMAR. PT REPORTS SLIGHT NAUSEA AFTER EATING A FEW BITES OF PUDDING. NO PRN AVAILABLE. OFFERED TO PHONE MD, PT REFUSED AT THIS TIME AND AGREES TO WAIT. MIDLINE ABD INCISION OPEN TO AIR. STERI STRIPS IN PLACE. NO REDNESS OR DRAINAGE NOTED. ABD SOFT. BOWEL TONES ACTIVE. LLQ CARLY IN PLACE WITH SCANT AMOUNT SEROSANG DRAINAGE. PT DENIES QUESTIONS OR CONCERNS. CALL LIGHT IN REACH. DAUGHTER AT BEDSIDE.
--- NOTE | 2024-12-15 22:34 | NUR ---
CALL LIGHT ANSWERED. PT REPORTS INCONTINENCE OF SMALL AMOUNT JELLY LIKE BM. [facility] SUPPLIES PROVIDED. REPORTS ABD PAIN 5/10. PRN FOR PAIN ADMIN PER EMAR. NAUSEA RESOLVED. ICE PACK PROVIDED FOR ABD. ASSISTED PT TO REPOSITION TO RIGHT SIDE WITH PILLOWS. 1L/NC PLACED FOR HX VIVIANA. NO FURTHER NEEDS. BED ALARM FOR SAFETY. CALL LIGHT IN REACH.
[2024-12-16] VITALS (9 sets, daily range): BP systolic 109–149; BP diastolic 50–94
--- NOTE | 2024-12-16 00:05 | NUR ---
PT RESTING ON RIGHT SIDE WITH EYES CLOSED SNORING SOFTLY. SPOT CHECK SpO2 98% ON 1L/NC. PRN FOR PAIN ADMIN PER EMAR DISCUSSED WITH PT WHILE AWAKE TO "STAY ON TOP OF IT." BED ALARM FOR SAFETY. CALL LIGHT IN REACH.
--- NOTE | 2024-12-16 00:41 | NUR ---
PATIENT CALLED TO USE THE BATHROOM. THIS BUYING INTERN ASSISTED HER TO THE BATHROOM AND BACK TO BED. REPOSITIONED HER TO HER LEFT SIDE. PILLOWS IN USE. CALL LIGHT IN REACH. BED ALARM SET.
--- NOTE | 2024-12-16 02:25 | NUR ---
PT UP TO BR WITH FARM CROPS TEACHER ASSIST. BACK TO RECLINER. WARM BLANKET AND ICE PACK FOR ABD PROVIDED. PT REPORTS ABD PAIN TOLERABLE AT THIS TIME. ABD ASSESSMENT UNCHANGED. NO FURTHER NEEDS. CALL LIGHT IN REACH.
--- NOTE | 2024-12-16 04:06 | NUR ---
PT UP TO BR TO VOID AND HAVE BM. PT INCONTINENT OF STOOL WELL. [facility] [employer] SUPPLIES PROVIDED. BACK TO BED, SMITA WELL. PT REPORTS ABD PAIN 02/14. PRN FOR PAIN ADMIN PER EMAR. NEW BAG IVF HUNG. NO FURTHER NEEDS. CALL LIGHT IN REACH.
--- NOTE | 2024-12-16 05:23 | NUR ---
PT AWAKE IN BED. REPORTS ABD PAIN TOLERABLE, DENIES PRN FOR PAIN WHEN OFFERED. LLQ CARLY WITH 20 ML SEROSANGE DRAINAGE. VS AND I&O OBTAINED. NO FURTHER NEEDS.
--- NOTE | 2024-12-16 06:29 | NUR ---
PT UP TO BR TO VOID AND HAVE SMALL SEMI LIQUID SOFT BM. PT INCONTINENT OF BM WELL. PT ABLE TO DO OWN JOHNATHON CARE. UP TO AMB X 2 LAPS AROUND NURSING UNIT INDEPENDENTLY.
--- NOTE | 2024-12-16 07:08 | NUR ---
REPORT RECEIVED FROM VON WINSTON. PT RESTING IN BED WITH HOB ELEVATED, MOUTH OPEN, AUDIBLE SNORE. CALL LIGHT IN REACH.
--- NOTE | 2024-12-16 08:25 | NUR ---
PATIENT IN BED AT THIS TIME. PAPERHANGER ASSISTANT WENT INTO PATIENTS ROOM FOR HOURLY ROUNDS. CALL LIGHT WITHIN REACH, NO FURTHER NEEDS AT THIS TIME.
[2024-12-16] MEDS ORDERED: IBUPROFEN 600 MG TAB PO PRN (09:30)
[2024-12-16] MEDS ORDERED: ACETAMINOPHEN 500 MG TAB PO PRN (09:30)
--- NOTE | 2024-12-16 10:19 | NUR ---
PATIENT IN BED AT THIS TIME. SUPERVISOR ANODIZING CHARTED VITALS AND I&O'S. CALL LIGHT WITHIN REACH, NO FURTHER NEEDS AT THIS TIME.
--- NOTE | 2024-12-16 10:45 | NUR ---
MEDICATION ADMINISTERED, SEE JAN. ASSESSMENT COMPLETE. PT IS RESTING IN BED AT THIS TIME COMPLAINING OF SUBSTANTIAL PAIN IN HER ABDOMEN AND LOWER BACK. SHE RATES THIS PAIN A 5/10. PRN PAIN MEDICATION ADMINISTERED. EDUCATED PT ON MDs ORDER CHANGES FOR PAIN MEDICATION, PT VERBALIZES UNDERSTANDING BUT VOICES SOME CONCERNS. MIDLINE INCISION HAS STERI-STRIPS IN PLACE, DRIED DRAINAGE UNCHANGED FROM YESTERDAY, VERY BOTTOM STERI-STRIP HAS FALLEN OFF. NO ERYTHEMA, NO WARMTH NOTED. PT REPORTS THE INCISION IS NOT PAINFUL, ALL HER PAIN IS "ON THE INSIDE". FRANCESCO DRAIN INCISION SITE ALSO FREE OF ERYTHEMA OR REDNESS. FRANCESCO DRAIN TUBING STRIPPED, SEROSANGUINOUS FLUID NOTED TO TUBING LINE AND IN BULB. PTs BOWEL TONES ARE ACTIVE IN ALL FOUR QUADRANTS, PT REPORTS FREQUENT SMEARS AND SMALL LOOSE BOWEL MOVEMENTS THROUGH THE NIGHT AND THIS MORNING. SHE IS LOOKING FORWARD TO TRYING REGULAR FOOD TODAY. PT AGAIN VOICES CONCERNS REGARDING PAIN MEDICATIONS AND APPEARS ANXIOUS WITH MILD FIDGETING. THERAPEUTIC COMMUNICATION PROVIDED. ICE PACK FOR INCISION SITE AND WARM BLANKETS ALSO PROVIDED. PT APPEARS TO SETTLE DOWN AND INTENDS TO REST FOR AWHILE. PTs IS IN ROOM THROUGHOUT. HOME BROUGHT TAPIOCA PUDDING AND CRACKERS PROVIDED FOR PT TO TRY. NO OTHER REQUESTS, CALL LIGHT IN REACH.
--- NOTE | 2024-12-16 11:36 | NUR ---
DR BURKETT NOTIFIED OF PT CONCERNS. NEW ORDER PLACED FOR PO PAIN MEDICATION. IVF DISCONTINUED ORDERED.
[2024-12-16] MEDS ORDERED: OXYCODONE HCL 5 MG TAB PO PRN (11:45)
--- NOTE | 2024-12-16 12:36 | NUR ---
PT UP IN RECLINER WORKING ON LUNCH TRAY. REPORTS HER PAIN IS A 4/10. PT UPDATED ON MDs UPDATES TO CAREPLAN AND MEDICATIONS. PT AGREEABLE. PT SUPPLIED WITH PRN PAIN MEDICATION, SEE MAR. THERAPEUTIC COMMUNICATION PROVIDED REGARDING PTs FUTURE AND BEING RELEASED FROM HOSPITAL, PT APPEARS APPRECIATIVE. NO OTHER REQUESTS, PT CONTINUES WORKING ON LUNCH TRAY, CALL LIGHT IN REACH.
--- NOTE | 2024-12-16 13:52 | NUR ---
PATIENT IN BED AT THIS TIME. BRANCH BILLING PAYROLL CLERK CHARTED VITALS AND I&O'S. PATIENT IS CURRENTLY WALKING A LAP AROUND HALLS WITH . CALL LIGHT WITHIN REACH, NO FURTHER NEEDS A THIS TIME.
--- NOTE | 2024-12-16 14:52 | NUR ---
PT RESTING ON R SIDE IN BED, EYES CLOSED, RR EVEN AND UNLABORED. CALL LIGHT IN REACH.
--- NOTE | 2024-12-16 15:45 | NUR ---
MIDLINE INCISION IS DRY, STERI-STRIPS INTACT. DRIED DRAINAGE UNCHANGED FROM EARLIER AND YESTERDAY. FRANCESCO DRAIN INCISION SITE IS DRAINING SEROUS FLUID WHICH IS NOTED ON PTs GOWN AND PULL-UP. FRANCESCO DRAIN TUBING IS STRIPPED, DRAIN EMPTIED OF 21ML OF SEROSANGUINOUS FLUID. BOWEL TONES ACTIVE IN ALL FOUR QUADRANTS, PT TENDER TO PALPATION THROUGHOUT ABDOMEN. PT REPORTS OCC. NAUSEA AFTER EATING REGULAR LUNCH TRAY BUT REPORTS THE FOOD FEELS GOOD IN HER STOMACH AND IS ENCOURAGED BY HER PROGRESS. SHE IS HAVING FREQUENT LOOSE STOOLS AT THIS POINT. PRN PAIN MEDICATION AND NAUSEA MEDICATION ADMINISTERED, SEE MAR. PT COMPLAINS OF IV TO L FOREARM CAUSING SOME IRRITATION FROM THE DRESSING. DRESSING CHANGED AT THIS TIME, PT REPORTS THIS IS MUCH IMPROVED. NO OTHER REQUESTS AT THIS TIME, PT SETTLES IN BED TO WATCH [employer] GAME, CALL LIGHT IN REACH.
--- NOTE | 2024-12-16 17:10 | NUR ---
PT RESTING IN RECLINER. SHE HAS EATEN SOME FOOD BROUGHT IN BY HER AND IS VERY PROUD OF HERSELF. SHE REPORTS NO NAUSEA, HER PAIN IS WELL CONTROLLED AND SHE RATES IT AT A 2/10. SHE HAS NO COMPLAINTS AT THIS TIME, NO REQUESTS. CALL LIGHT IN REACH.
--- NOTE | 2024-12-16 19:18 | NUR ---
REPORT RECEIVED FROM DAY SHIFT RN. PT SITTING IN RECLINER ALERT AND ORIENTED. DENIES NEEDS. WHITE BOARD UPDATED. CALL LIGHT IN REACH.
[2024-12-16] MEDS ORDERED: PRAMIPEXOLE DIHYDROCHLORIDE 0.5 MG TAB PO SCH (21:00)
[2024-12-16] MEDS ORDERED: PRAMIPEXOLE DIHYDROCHLORIDE 1 MG TAB PO SCH ×2 (21:00)
--- NOTE | 2024-12-16 21:33 | NUR ---
EVENING ASSESSMENT COMPLETE. PT REPORTS ABD PAIN 2/10 AND SLIGHT NAUSEA. PRN'S ADMIN PER EMAR. MIDLINE ABD INCISION WITH STERI STRIPS INTACT. NO REDNESS OR DRAINAGE NOTED. ABD SOFT. BT ACTIVE. PT HAVING SMALL SOFT BM. LLQ WITH 15 ML SEROSANG DRAINAGE. 1L/NC PLACED FOR HX VIVIANA. PT DENIES QUESTIONS OR CONCERNS. CALL LIGHT IN REACH.
--- NOTE | 2024-12-16 23:23 | NUR ---
PT UP TO BR TO VOID AND HAVE SM BM. BACK TO BED, SMITA WELL. ASSISTED TO REPOSITION TO RIGHT SIDE WITH PILLOWS. NO FURTHER NEEDS. CALL LIGHT IN REACH.
--- NOTE | 2024-12-17 01:49 | NUR ---
PT RESTING IN BED WITH EYES CLOSED. RESPIRATIONS EVEN. CALL LIGHT IN REACH.
--- NOTE | 2024-12-17 03:23 | NUR ---
CALL LIGHT ANSWERED. PT REPORTS ABD PAIN AND NAUSEA. PRN FOR PAIN AND N/V ADMIN PER EMAR. ASSISTED TO RECLINER, FEET ELEVATED. ICE PACK PROVIDED FOR ABD. ASSESSMENT UNCHANGED. NO FURTHER NEEDS. CALL LIGHT IN REACH.
[2024-12-17 04:43] VITALS: BP 142/77
[2024-12-17 04:46] VITALS: BP 142/77
--- NOTE | 2024-12-17 05:00 | NUR ---
ASSISTED PT BACK TO BED. PT REPORTS PAIN "ALL OVER" AFTER SITTING IN RECLINER. ASSISTED TO REPOSITION FOR COMFORT. PRN FOR PAIN ADMIN PER EMAR. SNACK AND DRINK PROVIDED. VS AND I&O OBTAINED. NO FURTHER NEEDS.
--- NOTE | 2024-12-17 07:36 | NUR ---
REPORT RECIEVED FROM [place]. PT AWAKE AND UP IN RESTROOM. HAD A BM, NORMAL FOR HER, A LITTLE DIAHRREA. PT STATES SHE IS GOING HOME TODAY AND IS DOING HER HAIR. GIVEN PAPER AND PEN PER REQUEST, DENIES NEEDS ATT.
--- NOTE | 2024-12-17 07:59 | NUR ---
PT UP IN CHAIR WAITING ON BREAKFAST. ASSESS COMPLETE. PT HAS CARLY TUCKED IN UNDERWEAR IT HOLDS BETTER. PT STATES SHE IS HAVING SOME CRAMPING BUT IT IS NORMAL FOR NOW.
--- NOTE | 2024-12-17 08:05 | NUR ---
INTO SEE PATIENT. SHE STATES "I AM DISCHARGING TODAY AND DO NOT NEED ANYTHING." NO FUTHER NEEDS FROM CM AT THIS TIME.
--- NOTE | 2024-12-17 08:17 | NUR ---
IMM LETTER COMPLETED AT 0810. SIGNED AND WAIVED 4 HOUR WAITING PERIOD.
[2024-12-17] MEDS ORDERED: IBUPROFEN600 MG PO (08:22)
[2024-12-17] MEDS ORDERED: ACETAMINOPHEN500 MG PO (08:22)
[2024-12-17] MEDS ORDERED: FAMOTIDINE 20 MG TAB PO SCH (09:00)
[2024-12-17] MEDS ORDERED: PRAMIPEXOLE DIHYDROCHLORIDE 1 MG TAB PO SCH (09:00)
[2024-12-17 09:33] VITALS: BP 141/72
--- NOTE | 2024-12-17 14:05 | PATH ---
[facility] [address], [place] [address] Signed SPECIMEN(S): A SIGMOID AND PORTION OF RECTUM SPECIMEN SOURCE: A. SIGMOID AND PORTION OF RECTUM v CLINICAL HISTORY: Sigmoid stricture/recurrent diverticulitis. FINAL PATHOLOGIC DIAGNOSIS: Colon, rectosigmoid, resection: - Colonic mucosa with diverticulosis and diverticulitis - Surgical margins appear viable BRP MICROSCOPIC EXAMINATION: Histologic sections of all submitted blocks are examined by light microscopy. These findings, together with the gross examination, support the pathologic diagnosis. GROSS DESCRIPTION: The specimen, labeled and designated "Beams Walkup, R, " and designated on the requisition "" and designated on the requisition "sigmoid and portion of rectum," is received in formalin and consists of one previously open segment of large bowel that is a 19.5 cm in length and has an average internal circumference of 3.5 cm. The specimen is indurated. The serosal surface is pink-red and diffusely roughened. The serosal surface is inked blue. The exposed mucosa is a pink and finely granular with an increased folding pattern with a 0.3 cm polypoid portion of mucosa that is 1.2 cm from the closest resection margin. Sectioning through the bowel wall reveals multiple diverticula. Multiple diverticula communicate with purulent fluid-filled cavities within the adjacent mesentery the measure up to 2.7 cm in greatest dimension. The bowel wall ranges in thickness from 0.7 cm up to 1.8 cm. Site Auditor sections are submitted in six cassettes. Cassette Summary: (A1-A2) resection margins, shave (A3) polypoid portion of mucosa, entirely submitted, diverticula (A4-A6) diverticula to adjacent cavities PATIENT NAME: ALAN BRICEÑO PATHOLOGY DATE OF : 42 REPORT #: [id number] PHYSICIAN: MYLES DYKES PCP: KELSEY MCKOY MD REPORT IS CONFIDENTIAL AND NOT TO BE RELEASED WITHOUT AUTHORIZATION [facility] [address], [place] [address] Signed FB (under the direct supervision of a pathologist) The Gross Description was prepared using a voice recognition system. The report was reviewed for accuracy; however, sound-alike word errors, addition and/or deletions may occur. If there is any question about this report, please contact Client Services. ADDITIONAL NOTES: Immunohistochemical and/or in situ hybridization studies if performed in this case included appropriate positive controls that reacted as expected. This test was developed and its performance characteristics determined by [facility]. It has not been cleared or approved by the U.S. Food and Drug Administration. The FDA has determined that such clearance or approval is not necessary. This test is used for clinical purposes. It should not be regarded as investigational or for research. [facility] is certified under the Clinical Laboratory Improvement Amendments of 1988 (CLIA) as qualified to perform high complexity clinical laboratory testing. PERFORMING LABORATORY: Technical component was performed by [facility], [address] [place] [address] (CLIA# [id number]). Professional interpretation was performed by [facility], [address] [place] [address] (CLIA#: [id number]). Diagnostician: Daquan Hoffmann MD Pathologist Electronically Signed 12/17/2024 Copies: ~ PATIENT NAME: ALAN BRICEÑO ANN PATHOLOGY DATE OF : 42 REPORT #: [id number] PHYSICIAN: MYLES DYKES PCP: KELSEY MCKOY MD REPORT IS CONFIDENTIAL AND NOT TO BE RELEASED WITHOUT AUTHORIZATION
--- NOTE | 2024-12-17 14:31 | DS ---
[facility] [address] [place], [place] [address] Signed ADMISSION DATE: 12/13/2024 DISCHARGE DATE: 12/17/2024 REASON FOR ADMISSION: Symptomatic sigmoid stricture related to recurrent diverticulitis. HISTORY OF PRESENT ILLNESS: This 84-year-old white woman is a patient of Dr. Dayami Mckoy. She has had recurrent bouts of sigmoid diverticulitis requiring hospitalization. She recently underwent colonoscopy, which showed a dense stricture at the sigmoid at approximately 25 cm related to recurrent diverticulitis. There is no evidence of neoplasm. She is admitted at this time to undergo sigmoid resection for symptomatic sigmoid stricture. She understands the risk of bleeding, infection, anastomotic failure, and other unforeseen complications. PERTINENT PHYSICAL EXAMINATION: GENERAL: Pleasant white woman who looks younger than her stated age of 84. VITAL SIGNS: Blood pressure 127/84, pulse 85, O2 saturation 95% on room air. Temperature 98.0. NECK: Normal. CHEST: Clear. HEART: Regular without murmur. ABDOMEN: Nondistended. There is no palpable mass. There is no ascites. EXTREMITIES: Show no clubbing, cyanosis, or edema. HOSPITAL COURSE: On December 13, 2024, she underwent sigmoid resection. This was a difficult operation due to extreme fibrosis of the sigmoid and the dense mass-like change of the sigmoid itself. Sigmoid resection and resection of portion of rectum was undertaken as well as splenic flexure mobilization. The side-to-end coloproctostomy was accomplished in a hand-sewn technique. A drain was placed. Postoperatively she was maintained on a clear liquid diet the night of operation and advanced to a full liquid diet on postop day #2. She had bowel function much improved from prior and advanced to a solid regular diet. A drain was placed at the time of operation and was removed prior to discharge. By day of discharge, she is ambulating well, tolerating a regular diet, tolerating oral pain medication and doing well. FOLLOWUP PLAN: She is to return to see me in approximately four weeks. She is to walk on a daily basis, but to avoid lifting more than 20 pounds for the next four weeks. She will keep Electronically Signed By: KRISH BURKETT MD 12/17/24 1431 PATIENT NAME: ALAN BRICEÑO DISCHARGE SUMMARY DATE OF : 42 REPORT #: [id number] PHYSICIAN: KRISH BURKETT MD PCP: DAYAMI MCKOY MD REPORT IS CONFIDENTIAL AND NOT TO BE RELEASED WITHOUT AUTHORIZATION [facility] [address] [place], [place] [address] Signed Steri-Strips in place and should shower on a routine basis. DISCHARGE MEDICATIONS: Will include: 1. Ibuprofen 600 mg p.o. q.6 hours as needed for moderate pain, #60, refill 0. 2. Tylenol 500 mg two tablets p.o. q.6 hours as needed for pain, #60, no refill. She will continue her usual medications, which include: 1. Pramipexole 0.5 to 1 mg b.i.d. for restless legs. 2. Oxycodone 5 mg tablet half tab p.o. q.12 hours as needed for severe to moderate pain of back (chronic and under pain clinic management). 3. One multivitamin p.o. daily. 4. Potassium chloride 8 mEq tablets p.o. daily. 5. Magnesium chloride 64 mg tablets p.o. daily. 6. Tizanidine 4 mg p.o. at bedtime as needed for muscle spasms. 7. Benadryl 25 mg at bedtime as needed for insomnia. DISCHARGE DIAGNOSES: 1. Severe stricture sigmoid colon (symptomatic) related to chronic recurrent acute diverticulitis. 2. Status post sigmoid colectomy with low anterior resection and side-to-end coloproctostomy December 13, 2024. 3. Chronic pain syndrome related to back. 4. Restless legs syndrome. MD JAMI Fields/MONICA /[id number] cc: Dr. Dayami Mckoy Copies: ~ Electronically Signed By: KRISH BURKETT MD 12/17/24 1431 PATIENT NAME: ALAN BRICEÑO DISCHARGE SUMMARY DATE OF : 42 REPORT #: [id number] PHYSICIAN: KRISH BURKETT MD PCP: DAYAMI MCKOY MD REPORT IS CONFIDENTIAL AND NOT TO BE RELEASED WITHOUT AUTHORIZATION
== END 2024-12-17 09:20 | disposition home or self-care (01) | DRG 331 ==
LOC: DSVR 12-13 08:00 → MS 12-13 08:00
PROVIDERS: ADMIT Surgery; ATTEND Surgery
PROC: 0DBP0ZZ Excision of Rectum, Open Approach (ICD-10-PCS; 2024-12-13)
PROC: 0DTN0ZZ Resection of Sigmoid Colon, Open Approach (ICD-10-PCS; principal; 2024-12-13 09:55)
DX: K57.32 Diverticulitis of large intestine without perforation or abscess without bleeding (principal); G89.4 Chronic pain syndrome; G25.81 Restless legs syndrome; K64.9 Unspecified hemorrhoids; K66.0 Peritoneal adhesions (postprocedural) (postinfection); Z88.5 Allergy status to narcotic agent
CPT/HCPCS: 00840; 36415; 76942; 80048; 83735; 85025; 94762; A9270; J0131; J0690; J1100; J1171; J1644; J1650; J1790; J1885; J2003; J2405; J2704; J2795; J3010; J3475; J3490; J7121